=== PATIENT | female | born 1995 ===

== ENCOUNTER 2021-04-11 12:01 | Outpatient (REF) | payer OTHER, SELFPAY | END 2021-04-11 12:02 | disposition home or self-care (01) | LOC: HO.LAB 12:01 | PROVIDERS: PCP Internal Medicine; Visit Provider Internal Medicine | DX: Z20.822 Contact with and (suspected) exposure to COVID-19 (principal) | CPT/HCPCS: C9803; U0003; U0005 ==

== ENCOUNTER 2024-02-19 08:48 | Emergency (ER) | payer OTHER, SELFPAY ==
[2024-02-19 08:53] VITALS: BP 174/102; PULSE 92; RESP 19; TEMP 36.6; O2SAT 99; BMI 27.4
--- NOTE | 2024-02-19 09:09 | ED.GENADULT ---
HPI - General Adult General Chief complaint: General Medical Stated complaint: R breast pain Time Seen by Provider: 02/19/24 09:09 Source: patient and RN notes reviewed Mode of arrival: ambulatory Limitations: no limitations History of Present Illness ED Provider: Christine Madison PA-C HPI narrative: This is a 28-year-old female, with a history of dermatomyositis, who presents emergency department with complaints of right breast lump x6 months. Patient states that she noticed a lump in the breast 6 months ago and has noticed an increase in size since she 1st noticed it. She states that she has had a milky white discharge coming from her right breast which occurred 2 days ago. She states that she had a similar episode several years ago and had an ultrasound of her breast which did not reveal any malignant process. She is unsure of any overlying skin changes as her autoimmune disorder often times gives her changes in her skin. Denies any fevers or chills. No profound night sweats or changes in weight. No other complaints or concerns at this time. MD complaint: Right breast lump Onset (ago): month(s) Location: chest Quality: aching Pain Consistency: constant Relieving factors: none Exacerbating factors: none Associated symptoms: denies other symptoms Treatments prior to arrival: none Related Data Allergies Allergy/AdvReac Type Severity Reaction Status Date / Time No Known Allergies Allergy Verified 02/19/24 08:54 [No Known Allergies*] Review of Systems Review of Systems: Yes all other systems are reviewed and are negative Constitutional: Constitutional: Reports as per [facility] Past Medical History Attestation statement: The following information was validated with the patient. Social History Social History Advance Directives: No Advance Directives Information Provided: Yes Do you have a plan to hurt others: No Plan Physical Exam ED Vital Signs: Vital Signs - 24 hr 02/19/24 08:53 02/19/24 10:39 Temperature 98 F 98.2 F Pulse Rate 92 87 Respiratory Rate 19 16 Blood Pressure 174/102 H 158/70 H Pulse Oximetry 99 99 Oxygen Delivery Method Room Air Room Air BMI result Body Mass Index 27.4 Const General: cooperative, comfortable and no acute distress Orientation/consciousness: patient oriented x3 Limitations: no limitations HENMT Head: Yes normal to inspection, Yes normocephalic and Yes atraumatic Ears: hearing grossly normal bilaterally General nose exam: Normal external nose present Face and sinus: Yes normal facial exam Mouth: Normal oral and palatal mucosa present, oropharynx normal and moist mucous membranes Throat: Yes posterior oropharynx normal Eyes General: appearance normal, both eyes and all related structures Eyelids: Yes eyelids normal Conjunctivae: conjunctivae normal Sclerae: sclerae normal Pupils: Equal, round and reactive pupils present EOM: EOMs intact bilaterally Neck Neck: Yes normal visual inspection, Yes full ROM and Yes no lymphadenopathy Lymphatic: no lymphadenopathy noted Chest Chest palpation & inspection: normal inspection of the chest Chest/axillae images: 1. Right breast, in the upper outer quadrant, there is a 1 cm x 1 cm round non mobile, nontender, hard mass noted, no overlying skin changes or warmth. No peau d'orange. No nipple discharge Resp Effort & Inspection: normal respiratory effort and able to speak in complete sentences Auscultation: clear to auscultation bilaterally, no crackles, no rales, no rhonchi and no wheezes Cardio Rate: regular rate Rhythm: regular rhythm Heart sounds: S1 normal heart sound present and S2 normal heart sound present GI Inspection: Yes normal to inspection Skin General skin exam: no rashes or lesions noted Trauma: no lacerations or abrasions Wounds: no wounds Neuro General: patient oriented x3 and moves all extremities Cranial nerves: Yes Equal, round and reactive pupils present Extrem General: Yes normal to inspection Right upper extremity: normal to inspection Left upper extremity: normal to inspection Right lower extremity: normal to inspection Left lower extremity: normal to inspection Medical Decision Making Medical Decision Making [facility] Narrative: This is a 28-year-old female who presents emergency department with complaints of right breast pain/mass x6 months. Patient also endorses nipple discharge from her right breast which occurred 2 days ago. On examination, patient has a nonmobile palpable 1 cm x 1 cm round mass in her right upper outer quadrant of her right breast. No overlying skin changes or warmth. No nipple discharge. No other masses palpated. Less likely breast abscess as patient has no overlying skin changes or warmth. No fevers or chills. Given circumstances and less likely breast abscess, patient needs to have a diagnostic mammogram. I discussed with patient that this is unable to be ordered in the emergency room, and needs a urgent diagnostic mammogram/ultrasound to be performed. Patient has an OBGYN who she can follow-up with, however given referral to our OBGYN as well as the woman's center for further scheduling/workup. Given strict return precautions. She understands and agrees with plan. Patient stable for discharge. Differential Diagnosis Differential Diagnoses: The differential diagnosis associated with the presentation includes Abscess, malignancy, mass, cyst, lymph node Admission/Observation Consideration of admission/observation: Escalation of care including admission/observation considered Lab Data MDM Lab Attestation statement: I reviewed the patient's lab results. Radiology Impression Discussion of test interpretation with radiology: I have reviewed the radiologist's reading. External Record Review External record reviewed: Inpatient record, Office record, Outpatient record, Prior outpatient labs, Prior outpatient radiology, Primary care record and Outside ED record Discharge Plan Discharge Clinical Impression: Breast mass, right Qualifiers: Breast mass location: upper outer quadrant Qualified Code(s): N63.11 - Unspecified lump in the right breast, upper outer quadrant Patient Disposition: Home, Self-Care Instructions: Breast Mass (ED) Additional Instructions: You were seen in the emergency department due to a lump in your right breast. You need to follow-up with the [facility], call today to make an appointment. They can set you up with diagnostic imaging for this. You can also follow-up with your primary care physician or OBGYN to have this order placed. If any new or worsening symptoms occur including but not limited to fevers, chills, shortness of breath, please return for re-evaluation. [facility]: [phone]. [address] [place] [address] Referrals: [facility] [Provider Group] Joselito Campa MD [Physician] - Interventions: ED Discharge Assessment Last Done: 02/19/24 10:39 Discharge Date/Time: 02/19/24 10:41 Print Language: Yemeni
--- OUTSIDE RECORDS SUMMARY | 2024-02-19 09:18 | XMS_ITS | Continuity of Care Document ---
Author Organization [facility] ter Address [address] [place] [address]- Care Team Providers Care Supervisor Decorating Name Role Phone Abner Nowak MD, Glenda Cox Primary Care Physician [phone] Encounter [facility] Date(s): 11/08/22 - 12/20/[address] [address] Attending Physician: Ankit Shannon MD Admitting Physician: Ankit Shannon MD Referring Physician: Iain DAVIS, Matthew Allergies, Adverse Reactions, Alerts No Known Allergies Medications aspirin 81 mg oral delayed release tablet 162 mg, 2, tablet, By Mouth, Daily at bedtime, # 90 tablet, Refills 4, Tot. Refills 4, Maintenance,11/21/22 10:15:00 EDT, Route to Pharmacy Electronically, [facility]/pharmacy #[id number], Partial fill upon patient request if the prescription is for a schedule II... Start Date: 11/21/22 Status: Ordered Azathioprine = 50 mg, By Mouth, Daily, 0 Refills, Maintenance, 05/17/22 19:07:00 EST, Partial fill upon patient request if the prescription is for a schedule II opioid drug. Start Date: 05/17/22 Status: Ordered folic acid 1 mg oral tablet 1 mg, 1, tablet, By Mouth, Daily, # 30 tablet, Refills 2, Tot. Refills 2, Maintenance, 11/21/22 10:13:00 EDT, Route to Pharmacy Electronically, [facility]/pharmacy #[id number], Partial fill upon patient request if the prescription is for a schedule II opioid drug.... Start Date: 11/21/22 Status: Ordered hydroxychloroquine 200 mg oral tablet 200 mg, 1, tablet, By Mouth, Daily, Take 1.5 tablets daily, Refills 0, Maintenance, 11/12/20 9:38:00 EDT, Partial fill upon patient request if the prescription is for a schedule II opioid drug. Start Date: 11/12/20 Status: Ordered Paxlovid 150 mg-100 mg oral tablet See Instructions, 1 tablet by Mouth 2 times a day for 5 days, # 10 tablet, 0 Refills, Maintenance, 11/23/22 15:58:00 EDT, [facility]/pharmacy #[id number], Partial fill upon patient request if the prescription is for a schedule II opioid drug., 1 tablet by Mouth 2... Start Date: 11/23/22 Status: Ordered PNV By Mouth, Daily, 0 Refills, Maintenance, 09/26/22 10:54:00 EDT, Partial fill upon patient request if the prescription is for a schedule II opioid drug. Start Date: 09/26/22 Status: Ordered Tylenol Extra Strength 500 mg oral tablet 2 tablet = 1,000 mg, By Mouth, Every 6 hours, PRN Pain , Moderate, # 24 tablet, 0 Refills, Maintenance, 05/19/22 9:13:00 EST, Tablet, [facility]acy #[id number], Partial fill upon patient request if the prescription is for a schedule II opioid drug., 155, cm,... Start Date: 05/19/22 Status: Ordered Problem List Condition Confirmation Course Effective Dates Status H ealth Status Informant Abnormal first trimester screen Confirmed Active Dermatomyositis Confirmed Active History of section Confirmed Active Hx of preeclampsia, prior , currently Confirmed Active Obese class I Confirmed Active Request for sterilization Confirmed Active Social History Social History Type Response Smoking Status Never (less than 100 in lifetime) entered on: 09/07/22 Sex Female Patient Care team information Care Team Personnel Name: Abner Nowak MD , Glenda Cox Position: Reference Physician Member Role: PCP Address: Address: [address] [place] [address]- Care Team Related Persons Name: TA EDDIE Address: home [address] [place] [address] Name: EDUARDA LEBLANC
--- OUTSIDE RECORDS SUMMARY | 2024-02-19 09:18 | XMS_ITS | Continuity of Care Document ---
Author Organization [facility] Address [address] [place] [address]- Care Team Providers Care Asset Recovery Specialist Name Role Phone Abner Nowak MD, Glenda Cox Primary Care Physician [id number] Date(s): 10/30/22 - 11/29/[address] [address] Allergies, Adverse Reactions, Alerts No Known Allergies Medications aspirin 81 mg oral delayed release tablet 162 mg, 2, tablet, By Mouth, Daily at bedtime, # 90 tablet, Refills 4, Tot. Refills 4, Maintenance,11/21/22 10:15:00 EDT, Route to Pharmacy Electronically, [facility]/pharmacy #[id number], Partial fill upon patient request if [...] 11/21/22 10:13:00 EDT, Route to Pharmacy Electronically, [facility]/pharmacy #[id number], Partial fill upon patient request if [...] tablet, 0 Refills, Maintenance, 11/23/22 15:58:00 EDT, [facility]/pharmacy #[id number], Partial fill upon patient request if the [...] Refills, Maintenance, 05/19/22 9:13:00 EST, Tablet, [id number], Partial fill upon patient request if the prescription is for a schedule II opioid drug., 155, cm,... Start Date: 05/19/22 Status: Ordered Problem List Condition Confirmation Course Effective Dates Status H ealth Status Informant Dermatomyositis Confirmed Active History of section Confirmed [...] PCP Address: Address: [address] [place] [address]- Care Team Related Persons Name: CHAPPELLEDDIE Chawla Address: home [address] [place] [address] Name: EDUARDA LEBLANC
--- OUTSIDE RECORDS SUMMARY | 2024-02-19 09:18 | XMS_ITS | Continuity of Care Document ---
Author Organization [facility] ter Address [address] [place] [address]- Care Team Providers Care Almond Cutting Machine Tender Name Role Phone Abner Nowak MD, Glenda Cox Primary Care Physician [phone] Encounter [facility] Date(s): 12/07/22 - 01/12/[address] [address] Attending Physician: Felicity Lentz MD Admitting Physician: Felicity Lentz MD Referring Physician: Noreen Ribera CNM Allergies, Adverse Reactions, Alerts No Known Allergies Medications aspirin 81 mg oral delayed release tablet 162 mg, 2, tablet, By Mouth, Daily at bedtime, # 90 tablet, Refills 4, Tot. Refills 4, Maintenance,11/21/22 10:15:00 EDT, Route to Pharmacy Electronically, [facility]/pharmacy #[id number], Partial fill upon patient request if the prescription is for a schedule II... Start Date: 11/21/22 Status: Ordered Azathioprine = 50 mg, By Mouth, Daily, 0 Refills, Maintenance, 05/17/22 19:07:00 EST, Partial fill upon patient request if the prescription is for a schedule II opioid drug. Start Date: 05/17/22 Status: Ordered ferrous sulfate 325 mg oral enteric coated tablet See Instructions, Take one tablet By Mouth every other day., # 45 tablet, Refills 7, Tot. Refills 7, Maintenance, 12/26/22 9:02:00 EDT, Instructions Replace Required Details, Route to Pharmacy Electronically, [facility]/pharmacy #[id number], Partial fill upon charlene... Start Date: 12/26/22 Status: Ordered folic acid 1 mg oral tablet 1 mg, 1, tablet, By Mouth, Daily, # 90 tablet, Refills 2, Tot. Refills 2, Maintenance, 12/22/22 11:26:00 EDT, Route to Pharmacy Electronically, [facility]/pharmacy #[id number], Partial fill upon patient request if the prescription is for a schedule II opioid drug.... Start Date: 12/22/22 Status: Ordered hydroxychloroquine 200 mg oral tablet [...] tablet, 0 Refills, Maintenance, 11/23/22 15:58:00 EDT, [facility]/pharmacy #[id number], Partial fill upon patient request if [...] 0 Refills, Maintenance, 05/19/22 9:13:00 EST, Tablet, [facility]/pharmacy #[id number], Partial fill upon patient request if the prescription is for a schedule II opioid drug., 155, cm,... Start Date: 05/19/22 Status: Ordered Problem List Condition Confirmation Course Effective Dates Status H ealth Status Informant COVID-19 affecting in second trimester Confirmed Active Dermatomyositis Confirmed Active History of section Confirmed Active High risk with low PAPPA (-associated plasma protein A) Confirmed Active Hx of preeclampsia, prior , currently Confirmed Active Obese class I Confirmed Active Request for sterilization Confirmed Active Social History Social History Type Response Smoking Status Never (less than 100 in lifetime) entered on: 09/07/22 Sex Female Patient Care team information Care Team Personnel Name: Abner Nowak MD , Glenda Cox Position: Reference Physician Member Role: PCP Address: Address: [address] [place] [address]- Care Team Related Persons Name: EDDIE CHAPPELL Address: home [address] [place] [address] Name: EDUARDA LEBLANC
--- OUTSIDE RECORDS SUMMARY | 2024-02-19 09:18 | XMS_ITS | Continuity of Care Document ---
Author Organization [facility] Address [address] [place] [address]- Care Team Providers Care Pediatric Occupational Therapist Name Role Phone Abner Nowak MD, Glenda Cox Primary Care Physician Encounter [facility] Date(s): 05/16/22 - 06/15/22 [facility] [address] [place] [address] Allergies, Adverse Reactions, Alerts No Known Allergies Medications Azathioprine Daily, 0 Refills, Maintenance, 05/17/22 19:07:00 EST, Partial fill upon patient request if the prescription is for a schedule II opioid drug. Start Date: 05/17/22 Status: Ordered folic acid 1 mg oral tablet 1 mg, 1, tablet, By Mouth, Daily, Refills 0, Maintenance, 11/12/20 9:38:00 EDT, Partial fill upon patient request if the prescription is for a schedule II opioid drug. Start Date: 11/12/20 Status: Ordered hydroxychloroquine 200 mg oral tablet 200 mg, 1, tablet, By Mouth, Daily, Refills 0, Maintenance, 11/12/20 9:38:00 EDT, Partial fill uponpatient request if the prescription is for a schedule II opioid drug. Start Date: 11/12/20 Status: Ordered ibuprofen 800 mg oral tablet 800 mg, 1, tablet, By Mouth, 3 times a day, PRN, # 30 tablet, Refills 0, Tot. Refills 0, Maintenance, for pain, 05/17/22 20:48:00 EST, Route to Pharmacy Electronically, [facility], Partial fill upon patient request if the prescription is... Start Date: 05/17/22 Status: Ordered Methotrexate Tablet By Mouth, Refills 0, Maintenance, 11/12/20 9:43:00 EDT, Partial fill upon patient request if the prescription is for a schedule II opioid drug. Start Date: 11/12/20 Status: Ordered miSOPROStol 200 mcg oral tablet See Instructions, Place 2 tabs between cheek and gums on EACH side, let dissolve for 30 min then swallow the rest with water, # 4 tablet, 1 Refills, Maintenance, 05/17/22 20:48:00 EST, [facility], Partial fill upon patient request if the... Start Date: 05/17/22 Status: Ordered miSOPROStol 200 mcg oral tablet See Instructions, place 2 tabs between each cheek for 30 min then swallow the rest., # 4 tablet, 1 Refills, Maintenance, 05/18/22 19:15:00 EST, [facility]/pharmacy #[id number], Partial fill upon patient request if the prescription is for a schedule II opioid drug.... Start Date: 05/18/22 Status: Ordered ondansetron 4 mg oral tablet 1 tablet = 4 mg, By Mouth, Every 8 hours, PRN Nausea & Vomiting, # 10 tablet, 0 Refills, Maintenance, 05/17/22 20:48:00 EST, Tablet, [facility], Partial fill upon patient request ifthe prescription is for a schedule II opioid drug., 155... Start Date: 05/17/22 Status: Ordered PredniSONE By Mouth, Daily, 0 Refills, Maintenance, 05/17/22 19:07:00 EST, Partial fill upon patient request if the prescription is for a schedule II opioid drug. Start Date: 05/17/22 Status: Ordered Tylenol Extra Strength 500 mg oral tablet 2 tablet = 1,000 mg, By Mouth, Every 6 hours, PRN Pain , Moderate, # 24 tablet, 0 Refills, Maintenance, 05/19/22 9:13:00 EST, Tablet, [facility]/pharmacy #[id number], Partial fill upon patient request if the prescription is for a schedule II opioid drug., 155, cm,... Start Date: 05/19/22 Status: Ordered Problem List Condition Confirmation Course Effective Dates Status Health St at[facility] Informant Dermatomyositis Confirmed Active Patient Care team information Care Team Personnel Name: Abner Nowak MD , Glenda Cox Position: Reference Physician Member Role: PCP Address: Address: [address] [place] [address] Care Team Related Persons Name: TA EDDIE Address: home [address] [place] [address] Name: EDUARDA LEBLANC
--- OUTSIDE RECORDS SUMMARY | 2024-02-19 09:18 | XMS_ITS | Continuity of Care Document ---
Author Organization [facility] ter Address [address] [place] [address]- Care Team Providers Care Director Search Marketing Strategies Name Role Phone Abner Nowak MD, Glenda Cox Primary Care Physician Encounter [facility] Date(s): 10/16/21 - 11/25/[address] [id number] Attending Physician: Maria De Jesus Agee MD Admitting Physician: Maria De Jesus Agee MD Referring Physician: Maria De Jesus Agee MD Allergies, Adverse Reactions, Alerts No Known Allergies Medications folic acid 1 mg oral tablet 1 [...] opioid drug. Start Date: 11/12/20 Status: Ordered Methotrexate Tablet By Mouth, Refills 0, Maintenance, 11/12/20 9:43:00 EDT, Partial fill upon patient request if the prescription is for a schedule II opioid drug. Start Date: 11/12/20 Status: Ordered Problem List Condition Effective Dates Status Health Status Inform ant Dermatomyositis(Confirmed) Active
--- OUTSIDE RECORDS SUMMARY | 2024-02-19 09:18 | XMS_ITS | Continuity of Care Document ---
Author Organization [facility] Address [address] [place] [id number]- Care Team Providers Care Health Service Coordinator Name Role Phone Abner Nowak MD, Glenda Cox Primary Care Physician [facility]counter [facility] [id number] Date(s): 03/19/23 - 04/18/[address] [address] Allergies, Adverse Reactions, Alerts No Known Allergies Immunizations Given and Recorded Vaccine Date Status Refusal Reason tetanus/diphtheria/pertussis, acel(Tdap) 01/23/23 Given Medications acetaminophen 325 mg oral capsule 2 capsule = 650 mg, By Mouth, Every 4 hours, PRN as needed for pain, # 50 tablet, 0 Refills, Maintenance, 03/18/23 18:42:00 EDT, Capsule, [facility]/pharmacy #[id number], Partial fill upon patient request if the prescription is for a schedule II opioid drug., 155,... Start Date: 03/18/23 Status: Ordered aspirin 81 mg oral delayed release tablet 162 mg, 2, tablet, By Mouth, Daily at bedtime, # 90 tablet, Refills 4, Tot. Refills 4, Maintenance,11/21/22 10:15:00 EDT, Route to Pharmacy Electronically, [facility]/pharmacy #[id number], Partial fill upon patient request if the prescription is for a schedule II... Start Date: 11/21/22 Status: Ordered Azathioprine = 50 mg, By Mouth, Daily, 0 Refills, Maintenance, 05/17/22 19:07:00 EST, Partial fill upon patient request if the prescription is for a schedule II opioid drug. Start Date: 05/17/22 Status: Ordered Colace sodium 100 mg oral capsule 100 mg, 1, capsule, By Mouth, 2 times a day, PRN, # 20 capsule, Refills 0, Tot. Refills 0, Maintenance, for constipation, 02/06/23 11:26:00 EDT, Route to Pharmacy Electronically, [facility]/pharmacy #[id number], Partial fill upon patient request if the prescriptio... Start Date: 02/06/23 Status: Ordered ferrous sulfate 325 mg oral enteric coated tablet See Instructions, Take one tablet By Mouth every other day., # 45 tablet, Refills 7, Tot. Refills 7, Maintenance, 12/26/22 9:02:00 EDT, Instructions Replace Required Details, Route to Pharmacy Electronically, [facility]/pharmacy #[id number], Partial fill upon charlene... Start Date: 12/26/22 Status: Ordered folic acid 1 mg oral tablet 1 mg, 1, tablet, By Mouth, Daily, # 90 tablet, Refills 2, Tot. Refills 2, Maintenance, 12/22/22 11:26:00 EDT, Route to Pharmacy Electronically, [facility]/pharmacy #[id number], Partial fill upon patient request [...] drug. Start Date: 11/12/20 Status: Ordered ibuprofen 600 mg oral tablet 600 mg, 1, tablet, By Mouth, Every 6 hours, # 50 tablet, Refills 0, Tot. Refills 0, Maintenance, 03/18/23 18:42:00 EDT, Route to Pharmacy Electronically, [facility]/pharmacy #[id number], Partial fill upon patientrequest if the prescription is for a schedule II op... Start Date: 03/18/23 Status: Ordered MiraLax oral powder for reconstitution = 17 Gm, By Mouth, Daily, dissolve in water before taking, # 255 Gm, 0 Refills, Maintenance, 02/06/23 11:26:00 EDT, REC Powder, [facility]/pharmacy #[id number], Partial fill upon patient request if the prescription is for a schedule II opioid drug., 17 Gm By Mouth... Start Date: 02/06/23 Status: Ordered NIFEdipine (Eqv-Adalat CC) 30 mg oral tablet, extended release 1 tablet = 30 mg, By Mouth, Daily, # 90 tablet, 0 Refills, Maintenance, 03/20/23 15:44:00 EDT, ER Tablet, [facility]/pharmacy #[id number], Partial fill upon patient request if the prescription is for a schedule II opioid drug., 155, cm, 03/18/23 17:03:00 EDT, Heig... Start Date: 03/20/23 Status: Ordered oxyCODONE 5 mg oral tablet 10 mg, 2, tablet, By Mouth, Every 6 hours, PRN, # 12 tablet, Refills 0, Tot. Refills 0, Maintenance, for pain, 03/18/23 18:42:00 EDT, Route to Pharmacy Electronically, [facility]/pharmacy #[id number], Partial fill upon patient request if the prescription is for a... Start Date: 03/18/23 Status: Ordered PNV By Mouth, Daily, 0 Refills, Maintenance, 09/26/22 10:54:00 EDT, Partial fill upon patient request if the prescription is for a schedule II opioid drug. Start Date: 09/26/22 Status: Ordered Senna 8.6 mg oral tablet 1 or 2 tablets, By Mouth, Daily at bedtime, PRN, # 60 tablet, Refills 0, Tot. Refills 0, Maintenance, Constipation, 03/06/23 11:44:00 EDT, Route to Pharmacy Electronically, [facility]/pharmacy #[id number] Tablet,Partial fill upon patient request if the prescripti... Start Date: 03/06/23 Status: Ordered simethicone 125 mg oral tablet, chewable 1 tablet = 125 mg, Chew, 4 times a day, # 48 tablet, 0 Refills, Maintenance, 03/18/23 18:42:00 EDT,Chew Tablet, [facility]/pharmacy #[id number], Partial fill upon patient request if the prescription is for a schedule II opioid drug., 155, cm, 03/18/23 17:03:00 ED... Start Date: 03/18/23 Status: Ordered Tylenol Extra Strength 500 mg oral tablet 2 tablet = 1,000 mg, By Mouth, Every 6 hours, PRN Pain , Moderate, # 24 tablet, 0 Refills, Maintenance, 05/19/22 9:13:00 EST, Tablet, [facility]/pharmacy #[id number], Partial fill upon patient request if the prescription is for a schedule II opioid drug., 155, cm,... Start Date: 05/19/22 Status: Ordered Vitamin B12 250 mcg oral tablet 1 tablet = 250 mcg, By Mouth, Daily, # 30 tablet, 0 Refills, Maintenance, 02/08/23 16:07:00 EDT, Tablet, [facility]/pharmacy #[id number], Partial fill upon patient request if the prescription is for a schedule IIopioid drug., 155, cm, 02/06/23 11:02:00 EDT, Heigh... Start Date: 02/08/23 Status: Ordered Problem List Condition Confirmation Course Effective Dates Status H ealth Status Informant COVID-19 affecting in second trimester Confirmed Active Dermatomyositis Confirmed Active History of section Confirmed Active High risk with low PAPPA (-associated plasma protein A) Confirmed Active Hx of preeclampsia, prior , currently Confirmed Active Obese class II Confirmed Active Request for sterilization Confirmed Active Social History Social History Type Response Smoking Status Never (less than 100 in lifetime) entered on: 09/07/22 Sex Patient Care team information Care Team Personnel Name: Abner Nowak MD , Glenda Cox Position: Reference Physician Member Role: PCP Address: Address: [address] [place] [address]- Care Team Related Persons Name: EDDIE CHAPPELL Address: home [address] [place], [place] Name: EDUARDA LEBLANC Name: DUSTY COOPER Address: [address] Address: [address] [place] [address]
--- OUTSIDE RECORDS SUMMARY | 2024-02-19 09:18 | XMS_ITS | Continuity of Care Document ---
Author Organization [facility] ter Address [address] [place] [address]- Care Team Providers Care Entry Level Manager Name Role Phone Abner Nowak MD, Glenda Cox Primary Care Physician Encounter [facility] [place] Date(s): 02/25/23 - 02/26/[address] [address]- Discharge Disposition: A-D/C Home Attending Physician: Fátima Hoffman MD Admitting Physician: Fátima Hoffman MD Referring Physician: Fátima Hoffman MD Allergies, Adverse Reactions, Alerts No Known Allergies Immunizations Given and Recorded Vaccine Date Status Refusal Reason tetanus/diphtheria/pertussis, acel(Tdap) 01/23/23 Given Medications aspirin 81 mg oral delayed release [...] 02/06/23 11:26:00 EDT, Route to Pharmacy Electronically, [facility]/pharmacy #[id number], Partial fill upon patient request if the prescriptio... Start Date: 02/06/23 Status: Ordered ferrous sulfate 325 mg oral enteric coated tablet See Instructions, Take one tablet By Mouth every other day., # 45 tablet, Refills 7, Tot. Refills 7, Maintenance, 12/26/22 9:02:00 EDT, Instructions Replace Required Details, Route to Pharmacy Electronically, [facility]/pharmacy #[id number], Partial fill upon charlene... Start Date: 12/26/22 Status: Ordered folic acid 1 mg oral tablet 1 mg, 1, tablet, By Mouth, Daily, # 90 tablet, Refills 2, Tot. Refills 2, Maintenance, 12/22/22 11:26:00 EDT, [facility] opioid drug. Start Date: 11/12/20 Status: Ordered metroNIDAZOLE 500 mg oral tablet 1 tablet = 500 mg, By Mouth, Every 12 hours, for 5 days, # 10 tablet, 0 Refills, Acute 03/02/23 23:15:00 EDT, 02/25/23 23:15:00 EDT, Tablet, [facility]/pharmacy #[id number], Partial fill upon patient request if the prescription is for a schedule II opioid drug., 1... Start Date: 02/25/23 Stop Date: 03/02/23 Status: Ordered MiraLax oral powder for reconstitution = 17 Gm, By Mouth, Daily, dissolve in water before taking, # 255 Gm, 0 Refills, Maintenance, 02/06/23 11:26:00 EDT, REC Powder, [id number], Partial fill upon patient request if the prescription is for a schedule II opioid drug., 17 Gm By Mouth... Start Date: 02/06/23 Status: Ordered PNV By Mouth, Daily, 0 [...] Maintenance, 05/19/22 9:13:00 EST, Tablet, [facility]/pharmacy #[id number], Partial fill upon patient request if the prescription is for a schedule II opioid drug., 155, cm,... Start Date: 05/19/22 Status: Ordered Vitamin B12 250 mcg oral tablet 1 tablet = 250 mcg, By Mouth, Daily, # 30 tablet, 0 Refills, Maintenance, 02/08/23 16:07:00 EDT, Tablet, [facility]/pharmacy #[id number], Partial fill upon patient request if the [...] Confirmed Active Request for sterilization Confirmed Active Vital Signs Most recent to oldest [Reference Range]: 1 2 3 Oxygen Saturation [94-100 %] 100 % (02/26/23 12:46 AM) 100 % (02/26/23 12:31 AM) 100 % (02/26/23 12:16 AM) Blood Pressure [90-138/55-84 mm Hg] 135/78mm Hg (02/26/23 12:46 AM) 134/79mm Hg (02/26/23 12:31 AM) 136/84mm Hg (02/26/23 12:16 AM) Temperature [96.8-100.4 DegF] 98.8 DegF (02/25/23 9:17 PM) Dry Weight 83.7 kg (02/25/23 10:11 PM) Dry Weight Obtained Via Standing scale (02/25/23 10:11 PM) Social History Social History Type Response Smoking Status Never (less than 100 in lifetime) entered on: 09/07/22 Sex Female Note * Brielle Connelly RN: PERFORM Event Display: Discharge/Transfer Note Hospital Authored Date: [id number] Nursing Discharge Note Entered On: 02/26/2023 0:54 EDT Performed On: 02/26/2023 0:53 EDT by Brielle Connelly RN Nursing Discharge Note 2 Discharge Time : 02/26/2023 0:52 EDT Discharge Level of Care at Discharge : Home/Usp/Foster Care Patient Left Unit Via : Ambulatory Patient Accompanied Off Unit with : Significant other DC Instructions Provided & Signed by Pt : Yes Patient Understands D/C Instructions : Yes Patient Instructions Discharge Signed : Yes Did Pt have Specialty Bed or Wound Vac : No Brielle Connelly RN - 02/26/2023 0:53 EDT * Event Display: Discharge/Transfer Note Hospital Authored Date: * Brielle Connelly RN: PERFORM Event Display: Patient Education/Instruction Authored Date: [id number] Inpatient Adult Discharge Instructions [address] [id number] Name: EMILY CHAPPELL : 1995 Visit: 02/25/2023 20:47:00 Current Date: 02/26/2023 00:50 Account: [id number] Inpatient Adult Discharge Instructions We would like to thank you for allowing us to assist you with your healthcare needs. The following includes patient education materials and information regarding your injury/illness. Our entire staffstrives to provide an excellent experience for our patients and their families. PLEASE ENSURE YOU FOLLOW-UP PER THE INSTRUCTIONS BELOW! ?? YOUR OPINION IS IMPORTANT TO US! Please complete the survey you may receive by mail or email. Your feedback will be used to make improvements to the healthcare experiences of our patients and their families. Surveys are administered by [employer] ?? If further treatment with your primary care physician or another doctor is recommended, it is important for you to keep the appointment. Call your primary care physician or return to the Emergency Department immediately if your condition worsens, fails to improve, or new symptoms develop. If you need to find a doctor, you can call [facility] for a referral at [phone] or toll free at [phone]) or log in to [email or web address].. ?? [facility], in keeping with [facility] guidance, no longer requires face masks for staff, patientsor visitors in most situations. Similiar to time spent indoors at other locations, there is the chance that you were exposed to repiratory viruses during your time with us (such as flu or COVID-19). If you develop symptoms concerning for a viral respiratory infection, please seek testing (and treatment if indicated) from your medical provider or home test kit. ?? You can view and manage your care through the patient portal or by using a health care serg of your choosing. [employer] is a website that allows you to securely view your medical information including your hospital discharge summary, office visit summaries, medications and follow-up visits. You can also request appointments, renew medications, and request access to your medical information using a health care serg of your choosing, or just ask a question. You can enroll at [email or web address] or register during your next office visit. You have been discharged from [facility], Patient Care Unit: WETU1. If you have any questions regarding these instructions after you leave, please call us and we will be happy to assist you. [facility] Your Care Team Attending Physician Yasmin DAVIS, Fátima Munson Reason for Admission PREG MINH 10 23HEAVY BLEEDING Your Diagnosis Vaginal bleeding Bacterial vaginosis Elevated blood pressure reading Tests Performed Below is a partial list of the tests performed during your hospitalization. You may have had other tests and procedures not included in this list. Please discuss all test results with your provider. Primary Care Provider Abner Nowak MD , Glenda Cox Advance Directive Health Care Proxy on File No Discharge Vitals Temperature: 98.8 DegF Systolic Blood Pressure: 135 mm Hg Diastolic Blood Pressure: 78 mm Hg Oxygen Saturation: 100 % Studies Pending All tests and labs ordered during this hospital stay have been completed unless listed below. Please discuss all pending results with your provider listed above in these instructions. ?? No incomplete studies found What to do next Instructions From Your Doctor Discharge Orders Scheduled Follow-Up Appointments Sunday 11:20 AM EDT ?? Where: [facility] [address] [place] [address]- Status: Pending Sunday 11:20 AM EDT ?? Where: [facility] [address] [place] [address]- Status: Pending Sunday 11:20 AM EDT ?? Where: [facility] [address] [place] [address]- Status: Pending Sunday 11:20 AM EDT ?? Where: [facility] [address] [place] [address]- Status: Pending Sunday 11:30 AM EDT ?? Where: [facility] Status: Pending Sunday 11:20 AM EDT ?? Where: [facility] [address] [place] [address]- Status: Pending You Need to Schedule the Following Appointments Follow Up with??[facility] [phone] Discharge Medications EMILY VEGA :1995 Visit Date:02/25/2023 Medications: Please continue your medications until treatment is completed or stopped by your provider. Medications not listed below should be discontinued. Discuss any questions related to medications with your provider. What How Much When Instructions Next Dose New Metronidazole (metroNIDAZOLE 500 mg oral tablet) 1 tab(s) Oral Every 12 hours Duration: 5 Days Pickup at [facility]/pharmacy #[id number] Unchanged Acetaminophen (Tylenol Extra Strength 500 mg oral tablet) 2 tab(s) Oral Every 6 hours as needed for Pain , Moderate Unchanged Aspirin (aspirin 81 mg oral delayed release tablet) 2 tab(s) Oral Daily at Bedtime Unchanged Azathioprine 50 Milligram Oral Daily Unchanged Cyanocobalamin (Vitamin B12 250 mcg oral tablet) 1 tab(s) Oral Daily Unchanged Docusate (Colace sodium 100 mg oral capsule) 1 capsule Oral Twice a day as needed for for constipation Unchanged Ferrous Sulfate (ferrous sulfate 325 mg oral enteric coated tablet) See instructions Take one tablet By Mouth every other day. ?? Unchanged Folic Acid (folic acid 1 mg oral tablet) 1 tab(s) Oral Daily Unchanged Hydroxychloroquine (hydroxychloroquine 200 mg oral tablet) 1 tab(s) Oral Daily Take 1.5 tablets daily ?? Unchanged Multivitamin, (PNV ) Oral Daily Unchanged Polyethylene Glycol 3350 (MiraLax oral powder for reconstitution) 17 gram Oral Daily dissolve in water before taking ?? Pharmacy Information [facility]/pharmacy #[id number]: [address], [place] [id number] [phone] Test Results Below is a partial list of the most recent Laboratory test results done prior to this discharge. You may have had other tests and procedures not included in this list. Please discuss all test resultswith your provider. Allergies (NKA means No Known Allergies) NKA Problems Active Problems??(8) COVID-19 affecting in second trimester?? Dermatomyositis?? High risk with low PAPPA (-associated plasma protein A)?? History of section?? Hx of preeclampsia, prior , currently ?? Obese class I? Request for sterilization?? Education Materials Below is the list of Educational Leaflet Providered with your Discharge Instructions. Kick Counts?? Adapting to : Third Trimester?? Valuables and Belongings I fully understand and agree that [facility] accepts no responsibility for all my personal property including clothing, toilet articles, radios, jewelry, dentures, hearing aids, rings, money, or any other property that is in my possession or is brought to me after admission. I understand certain valuables may be placed in a hospital safe for a short period of time. I understand that the hospital is not liable for loss or damage due to accident, fire, or other natural occurrence while said property is in the safe. I accept full responsibility for any personal property that I keep with me, and will not hold the hospital responsible in case of loss or disappearance. I acknowledge that i have been encouraged to send valuables and belongings home. ? Common Emergency Awareness Tips IS IT A STROKE? Act FAST and Check for these signs: FACE Does the face look uneven? ARM Does one arm drift down? SPEECH Does their speech sound strange? TIME Call at any sign of stroke ?? Heart Attack Signs Chest discomfort: Most heart attacks involve discomfort in the center of the chest and lasts more than a few minutes, or goes away and comes back. It can feel like uncomfortable pressure, squeezing, fullness or pain. Discomfort in upper body: Symptoms can include pain or discomfort in one or both arms, back, neck, jaw or stomach. Shortness of breath: With or without discomfort. Other signs: Breaking out in a cold sweat, nausea, or lightheaded. Remember, MINUTES DO MATTER. If you experience any of these heart attack warning signs, call to get immediate medical attention! ?? Smoking can increase your chances of developing chronic health problems and can cause harmful effects to other family members in your house. If you smoke, you are strongly encouraged to quit. Please call [facility] at [phone] or [phone] ([phone]) or log in to [email or web address] for referrals to smoking cessation programs. ?? 430 Suicide & Crisis Lifeline is available 08/01 if you or someone you know needs to find a reason to keep living. By calling 401 you'll be connected to a skilled, trained counselor at a crisis center in your area. INPATIENT DISCHARGE INSTRUCTIONS SIGNATURE PAGE EMILY VEGA Location:[facility] Registration Date and Time:02/25/2023 20:47 EDT Primary Care Physician: Abner Nowak MD , Kasey, Attending Physician: Yasmin DAVIS, Fátima Munson, I EMILY VEGA, have received the above patient education materials/instructions and have verbalized understanding. If ambulance or transport services are being used I further acknowledge being given a choice of service. ?? If you need to contact me, please call me at this number: . Patient/Manager Pathology Name: Patient/Manager Pathology Signature: Relationship to Patient: Witness Name/Signature: Date: * Brielle Connlely RN: PERFORM, SIGN, VERIFY Event Display: Patient Education Handout Authored Date: [id number] * Brielle Connelly RN: PERFORM Event Display: Patient Education Leaflets Authored Date: [id number] Kick Counts ?? 50858 Kick Counts It???s normal to worry about your baby???s health. Generally, you will feel your baby start to movein your 2nd trimester at around 16 to 24 weeks. Getting to know the pattern of your baby's movements is one way to know what's normal for you and baby. This is called a kick count. Talk with your healthcare provider about kick counts and your specific situation. Always follow your provider's instructions. How to count kicks Here is just one way to do kick counts. Always follow your healthcare provider's instructions. Starting at 28 weeks, count your baby's movements daily. Time how long it takes you to feel 10 kicks, flutters, swishes, or rolls. Ideally, you want to feel at least 10 movements in 2 hours. You will likely feel 10 movements in less time than that. Here are tips for counting kicks: ??? Choose a time when the baby is active, such as after a meal.? Sit comfortably or lie on your side.? The first time the baby moves,??write down??the time.? Count each movement until the baby has moved?? 10??times. This can take from 20 minutes to 2??hours.? If you haven't felt 10 kicks by the end of the second hour, wait a few hours. Then try again. ??? Try to do it at the same time each day. ?? When to call your healthcare provider Follow your provider's instructions about when to call about your baby's movements. Don't hesitate to call if you have concerns. Call your healthcare provider?? right away??if: ??? You do a couple sets of kick counts during the day and your baby moves fewer than 10??times in??2??hours. ??? Your baby moves much less often than on the??days before. ??? You haven't felt your baby move all day. ?? Last Reviewed Date: 2022 ?? 9038-0240 [employer]. All rights reserved. This information is not intended as a substitute for professional medical care. Always follow your healthcare professional's instructions. ?? * Maricel COTE, Brielle: PERFORM Event Display: Patient Education Leaflets Authored Date: [id number] Adapting to : Third Trimester ?? [address] Adapting to : Third Trimester Although common during , some discomforts may seem worse in the final weeks. Simple lifestyle changes can help. Take care of yourself. And ask your partner to help out with small tasks. Limiting leg problems Ways to combat leg issues: ??? Wear support hose all day. ??? Don't wear snug shoes or clothes thatbind, such as tight pants and socks with elastic tops. ??? Sit with your feet and legs raised often. ?? Caring for your breasts Tips to follow include: ??? Wash with plain water. Don't use harsh soaps or rubbing alcohol. They may cause dryness. ??? Wear a nursing bra for extra support. It can also hide any leaks from your nipples. ?? Controlling hemorrhoids Ways to prevent hemorrhoids include: ??? Eat foods that are high in fiber. Also exercise and drink enough fluids. This will reduce constipation and hemorrhoids. ??? Sleep and nap on your side. This limits pressure on the veins??of your rectum. ??? Try not to stand or sit for long periods. ?? Controlling back pain As your body changes during , your back must work in new ways. Back pain has many causes. Physical changes in your body can strain your back and its supporting muscles. Also hormones increase during . This can affect how??your muscles and joints work together. All of these changescan lead to pain. Pain may be felt in the upper or lower back. Pain is also common in the pelvis. Some womenhave sciatica. This is pain caused by pressure on the sciatic nerve running down the back of the leg. Ice or heat may help. Your provider may advise massage therapy or a chiropractor. Sleep on your left side with a pillow between your knees. Use a brace or support device. Ask your provider for speci fic tips and exercises to help control your back pain. ?? Tips to help you rest Good rest and sleep will help you feel better. Here are some ideas: ??? Ask your partner to massageyour shoulders, neck, or back. ??? Limit the errands you do each day. ??? Lie down in the afternoonor after work for a few minutes. ??? Take a warm bath before you go to sleep. ??? Drink warm milk or teas without caffeine. ??? Don't drink coffee, black tea, and cola. ?? Stopping heartburn ??? Don't eat spicy, greasy, fried,??or acidic foods. ??? Eat small amounts more often. Eat slowly. ??? Wait 2 hours after eating before lying down. ??? Sleep with your upper body raised 6 inches. ?? Managing mood swings Ways to manage mood swings include: ??? Know that mood changes are normal. ??? Exercise often, but get plenty of rest. ??? Address any concerns and limit stress. Talking to your partner, other women,or your healthcare provider may help. ?? Dealing with urinary frequency Tips to deal with having to urinate often include: ??? Drink plenty of water all day. But if you drink a lot in the evening, you may have to get up more in the night. ??? Limit coffee, black tea, andcola. ?? How daily issues affect your health Many things in your daily life impact your health. This can include transportation, money problems,housing, access to food, and child care coordinator. If you can???t get to medical appointments, you may not receive the care you need. When money is tight, it may be difficult to pay for medicines. And living far from a grocery store can make it hard to buy healthy food. If you have concerns in any of these or other areas, talk with your healthcare team. They may know of local resources to assist you. Or they may have a staff person who can help. ?? Last Reviewed Date: 2020 ?? 2726-1680 [employer]. All rights reserved. This information is not intended as a substitute for professional medical care. Always follow your healthcare professional's instructions. ?? Patient Care team information Care Team Personnel Name: Abner Nowak MD , Glenda Cox Position: Reference Physician Member Role: PCP Address: Address: [address] [place] [address]- Care Team Related Persons Name: EDDIE CHAPPELL Address: home [address] [place] [id number] Name: EDUARDA LEBLANC
--- OUTSIDE RECORDS SUMMARY | 2024-02-19 09:18 | XMS_ITS | Continuity of Care Document ---
Author Organization [facility] Address [address] [place] [address]- Care Team Providers Care Quencher Operator Name Role Phone Abner Nowak MD, Glenda Cox Primary Care Physician Encounter [facility] [place] Date(s): 05/25/22 - 06/24/[address] [address]- Allergies, Adverse Reactions, Alerts No Known Allergies [...] 05/17/22 20:48:00 EST, Route to Pharmacy Electronically, [facility], Partial fill upon patient [...] tablet, 1 Refills, Maintenance, 05/17/22 20:48:00 EST, [facility], Partial fill upon patient request if the... Start Date: 05/17/22 Status: Ordered miSOPROStol 200 mcg oral tablet See Instructions, place 2 tabs between each cheek for 30 min then swallow the rest., # 4 tablet, 1 Refills, Maintenance, 05/18/22 19:15:00 EST, [facility]/pharmacy #[id number], Partial fill upon patient request if the prescription is for a schedule II opioid drug.... Start Date: 05/18/22 Status: Ordered ondansetron 4 mg oral tablet 1 tablet = 4 mg, By Mouth, Every 8 hours, PRN Nausea & Vomiting, # 10 tablet, 0 Refills, Maintenance, 05/17/22 20:48:00 EST, Tablet, [facility], Partial fill upon patient [...] 0 Refills, Maintenance, 05/19/22 9:13:00 EST, Tablet, [facility]/pharmacy #0693, Partial fill upon patient request if the prescription is for a schedule II opioid drug., 155, cm,... Start Date: 05/19/22 Status: Ordered Problem List Condition Confirmation Course Effective Dates Status [facility] Informant Dermatomyositis Confirmed Active Patient Care team information Care Team Personnel Name: Abner Nowak MD , Glenda Cox Position: Reference Physician Member Role: PCP Address: Address: [address] [place] [address]- Care Team Related Persons Name: EDDIE CHAPPELL Address: home [address] [place] [address] Name: EDUARDA LEBLANC
--- OUTSIDE RECORDS SUMMARY | 2024-02-19 09:19 | XMS_ITS | Continuity of Care Document ---
Author Organization [facility] Address [address] [place] [address]- Care Team Providers Care Weigher Operator Name Role Phone Abner Nowak MD, Gledna Cox Primary Care Physician [place] [facility] [place] Date(s): 05/08/23 - 06/07/[address] [address]- Attending Physician: Keyana Simons Admitting Physician: AdmKeyana gonzalez Referring Physician: AdmtrKeyana Allergies, Adverse Reactions, Alerts No Known Allergies Immunizations Given and Recorded Vaccine Date Status Refusal Reason tetanus/diphtheria/pertussis, acel(Tdap) 01/23/23 Given Medications acetaminophen 325 mg oral capsule 2 capsule = 650 mg, By Mouth, Every 4 hours, PRN as needed for pain, # 50 tablet, 0 Refills, Maintenance, 03/18/23 18:42:00 EDT, Capsule, [facility]/pharmacy #[id number], Partial fill upon patient request if the prescription is for a schedule II opioid drug., 155,... Start Date: 03/18/23 Status: Ordered aspirin 81 mg oral delayed release tablet 162 mg, 2, tablet, By Mouth, Daily at bedtime, # 90 tablet, Refills 4, Tot. Refills 4, Maintenance,11/21/22 10:15:00 EDT, Route to Pharmacy Electronically, [id number], Partial fill upon patient request [...] EDT, Route to Pharmacy Electronically, [facility]/pharmacy #[id number], Partial fill upon patient request if the prescriptio... Start Date: 02/06/23 Status: Ordered ferrous sulfate 325 mg oral enteric coated tablet See Instructions, Take one tablet By Mouth every other day., # 45 tablet, Refills 7, Tot. Refills 7, Maintenance, 12/26/22 9:02:00 EDT, Instructions Replace Required Details, Route to Pharmacy Electronically, [facility]/pharmacy #[id number], Partial fill upon charlene... Start Date: 12/26/22 Status: Ordered folic acid 1 mg oral tablet 1 mg, 1, tablet, By Mouth, Daily, # 90 tablet, Refills 2, Tot. Refills 2, Maintenance, 12/22/22 11:26:00 EDT, Route to Pharmacy Electronically, [facility]/pharmacy #[id number], Partial fill upon patient request [...] 03/18/23 18:42:00 EDT, Route to Pharmacy Electronically, [facility]/pharmacy #[id number], Partial fill upon patientrequest if [...] Refills, Maintenance, 03/20/23 15:44:00 EDT, ER Tablet, [facility]/pharmacy #[id number], Partial fill upon patient request if the prescription is for a schedule II opioid drug., 155, cm, 03/18/23 17:03:00 EDT, Heig... Start Date: 03/20/23 Status: Ordered oxyCODONE 5 mg oral tablet 10 mg, 2, tablet, By Mouth, Every 6 hours, PRN, # 12 tablet, Refills 0, Tot. Refills 0, Maintenance, for pain, 03/18/23 18:42:00 EDT, Route to Pharmacy Electronically, [facility]/pharmacy #[id number], Partial fill upon patient request [...] 03/06/23 11:44:00 EDT, Route to Pharmacy Electronically, [facility]/pharmacy #[id number] Tablet,Partial fill upon patient request if the prescripti... Start Date: 03/06/23 Status: Ordered simethicone 125 mg oral tablet, chewable 1 tablet = 125 mg, Chew, 4 times a day, # 48 tablet, 0 Refills, Maintenance, 03/18/23 18:42:00 EDT,Chew Tablet, [id number], Partial fill upon patient request if the prescription is for a schedule II opioid drug., 155, cm, 03/18/23 17:03:00 ED... Start Date: 10/1/23 Status: Ordered Tylenol Extra Strength 500 mg oral tablet 2 tablet = 1,000 mg, By Mouth, Every 6 hours, PRN Pain , Moderate, # 24 tablet, 0 Refills, Maintenance, 05/19/22 9:13:00 EST, Tablet, [id number], Partial fill upon patient request if the prescription is for a schedule II opioid drug., 155, cm,... Start Date: 05/19/22 Status: Ordered Vitamin B12 250 mcg oral tablet 1 tablet = 250 mcg, By Mouth, Daily, # 30 tablet, 0 Refills, Maintenance, 02/08/23 16:07:00 EDT, Tablet, [id number], Partial fill upon patient request [...] Physician Member Role: PCP Address: Address: [address] [place] [address]- Care Team Related Persons Name: EDDIE CHAPPELL Address: home [address] [place], [place] Name: EDUARDA LEBLANC Name: DUSTY COOPER Address: [address] Address: home [address] [place] [address] [place]
--- OUTSIDE RECORDS SUMMARY | 2024-02-19 09:19 | XMS_ITS | Continuity of Care Document ---
Author Organization [facility] Address [address] [address]- Care Team Providers Care Physician Vice President Name Role Phone Abner Nowak MD, Glenda Cox [id number] - 04/26/[address] [address] Attending Physician: Not on Staff, Attending MD Allergies, Adverse Reactions, Alerts No Known Allergies Immunizations Given and Recorded Vaccine Date Status Refusal Reason tetanus/diphtheria/pertussis, acel(Tdap) 01/23/23 Given Medications acetaminophen 325 mg oral capsule 2 capsule = 650 mg, By Mouth, Every 4 hours, PRN as needed for pain, # 50 tablet, 0 Refills, Maintenance, 03/18/23 18:42:00 EDT, Capsule, [facility]/pharmacy #[id number], Partial fill upon patient request [...] 02/06/23 11:26:00 EDT, Route to Pharmacy Electronically, [facility]/pharmacy #[id number], Partial fill upon patient request if the prescriptio... Start Date: 02/06/23 Status: Ordered ferrous sulfate 325 mg oral enteric coated tablet See Instructions, Take one tablet By Mouth every other day., # 45 tablet, Refills 7, Tot. Refills 7, Maintenance, 12/26/22 9:02:00 EDT, Instructions Replace Required Details, Route to Pharmacy Electronically, [id number], Partial fill upon charlene... Start Date: 12/26/22 Status: Ordered folic acid 1 mg oral tablet 1 mg, 1, tablet, By Mouth, Daily, # 90 tablet, Refills 2, Tot. Refills 2, Maintenance, 12/22/22 11:26:00 EDT, Route to Pharmacy Electronically, [id number], [...] 03/18/23 18:42:00 EDT, Route to Pharmacy Electronically, [facility]/pharmacy #[id number], Partial fill upon patientrequest if [...] Refills, Maintenance, 03/20/23 15:44:00 EDT, ER Tablet, [id number], Partial fill upon patient request if the prescription is for a schedule II opioid drug., 155, cm, 03/18/23 17:03:00 EDT, Heig... Start Date: 03/20/23 Status: Ordered oxyCODONE 5 mg oral tablet 10 mg, 2, tablet, By Mouth, Every 6 hours, PRN, # 12 tablet, Refills 0, Tot. Refills 0, Maintenance, for pain, 03/18/23 18:42:00 EDT, Route to Pharmacy Electronically, [id number], [...] 03/06/23 11:44:00 EDT, Route to Pharmacy Electronically, [id number] Tablet,Partial fill upon patient request if [...] 0 Refills, Maintenance, 05/19/22 9:13:00 EST, Tablet, [facility]/pharmacy #[id number], Partial fill upon patient request [...] Physician Member Role: PCP Address: Address: [address] [place] [address]- Care Team Related Persons Name: EDDIE CHAPPELL Address: [address] [place] [address] Name: EDUARDA LEBLANC Name: DUSTY COOPER Address: [address] Address: home [address]
--- OUTSIDE RECORDS SUMMARY | 2024-02-19 09:19 | XMS_ITS | Continuity of Care Document ---
Author Organization [facility] Address [address] [place] [address]- Care Team Providers Care Electronics Commodity Manager Name Role Phone Abner Nowak MD, Glenda Cox Primary Care Physician Encounter [facility] [place] Date(s): 08/28/22 - 09/27/22 [facility] [address] [place] [id number] Allergies, Adverse Reactions, Alerts No Known Allergies [...] 05/17/22 20:48:00 EST, Route to Pharmacy Electronically, [facility], Partial fill upon patient request if the prescription is... Start Date: 05/17/22 Status: Ordered ondansetron 4 mg oral tablet 1 tablet = 4 mg, By Mouth, Every 8 hours, PRN Nausea & Vomiting, # 10 tablet, 0 Refills, Maintenance, 05/17/22 20:48:00 EST, Tablet, [facility], Partial fill upon patient request ifthe prescription is for a schedule II opioid drug., 155... Start Date: 05/17/22 Status: Ordered PNV By Mouth, Daily, 0 Refills, Maintenance, 09/26/22 10:54:00 EDT, Partial fill upon patient request if the prescription is for a schedule II opioid drug. Start Date: 09/26/22 Status: Ordered pyridoxine 25 mg oral tablet 1 tablet = 25 mg, By Mouth, 3 times a day, PRN Nausea & Vomiting, # 100 tablet, 8 Refills, Acute 10/08/22 14:34:00 EDT, 09/07/22 14:33:00 EDT, [facility]/pharmacy #[id number], Partial fill upon patient request if the prescription is for a schedule II opioid drug.,... Start Date: 09/07/22 Stop Date: 10/08/22 Status: Ordered Tylenol Extra Strength 500 mg oral tablet 2 tablet = 1,000 mg, By Mouth, Every 6 hours, PRN Pain , Moderate, # 24 tablet, 0 Refills, Maintenance, 05/19/22 9:13:00 EST, Tablet, [facility]/pharmacy #[id number], Partial fill upon patient request if the prescription is for a schedule II opioid drug., 155, cm,... Start Date: 05/19/22 Status: Ordered Unisom 25 mg oral tablet 1 tablet = 25 mg, By Mouth, Daily at bedtime, PRN for sleep, # 32 tablet, 0 Refills, Acute 10/08/2313:34:00 EDT, 09/07/22 14:33:00 EDT, Tablet, [id number], Partial fill upon patient request if the prescription is for a schedule II opioid drug... Start Date: 09/07/22 Stop Date: 10/08/22 Status: Ordered Problem List Condition Confirmation Course Effective Dates Status Health St atus Informant Dermatomyositis Confirmed Active Obese class I Confirmed Active Social History Social History Type Response Smoking Status Never (less than 100 in lifetime) entered on: 09/07/22 Sex Patient Care team information Care Team Personnel Name: Abner Nowak MD , Glenda Cox Position: Reference Physician Member Role: PCP Address: Address: [address] [place] [address]- Care Team Related Persons Name: EDDIE CHAPPELL Address: [address] [place] [address] Name: EDUARDA LEBLANC
--- OUTSIDE RECORDS SUMMARY | 2024-02-19 09:19 | XMS_ITS | Continuity of Care Document ---
Author Organization [facility] Address [address] [place] [address]- Care Team Providers Care Laborer Petroleum Refinery Name Role Phone Abner Nowak MD, Nelsy Cox Primary Care Physician Encounter [facility] [place] Date(s): 06/26/20 - 08/05/[address] [address] Attending Physician: Matthew Timmons MD Admitting Physician: Matthew Timmons MD Referring Physician: Matthew Timmons MD
--- OUTSIDE RECORDS SUMMARY | 2024-02-19 09:19 | XMS_ITS | Continuity of Care Document ---
Author Organization [facility] Address [address] [place] [address]- Care Team Providers Care Instruction Dean Name Role Phone Abner Nowak MD, Glenda Cox Primary Care Physician [id number] Date(s): 03/14/23 - 04/19/[address] [address]- Attending Physician: Lyndsay Gutierrez MD Admitting Physician: Lyndsay Gutierrez MD Referring Physician: Jhonny Chan MD Allergies, Adverse Reactions, Alerts No Known Allergies Immunizations Given and Recorded Vaccine Date Status Refusal Reason tetanus/diphtheria/pertussis, acel(Tdap) 01/23/23 Given Medications acetaminophen 325 mg oral capsule 2 capsule = 650 mg, By Mouth, Every 4 hours, PRN as needed for pain, # 50 tablet, 0 Refills, Maintenance, 03/18/23 18:42:00 EDT, Capsule, [id number], Partial fill upon patient request [...] 02/06/23 11:26:00 EDT, Route to Pharmacy Electronically, [facility]/pharmacy #[id number], Partial fill upon patient request if the prescriptio... Start Date: 02/06/23 Status: Ordered ferrous sulfate 325 mg oral enteric coated tablet See Instructions, Take one tablet By Mouth every other day., # 45 tablet, Refills 7, Tot. Refills 7, Maintenance, 12/26/22 9:02:00 EDT, Instructions Replace Required Details, Route to Pharmacy Electronically, [facility]/pharmacy #[id number], Partial fill upon charlene... Start Date: 12/26/22 Status: Ordered folic acid 1 mg oral tablet 1 mg, 1, tablet, By Mouth, Daily, # 90 tablet, Refills 2, Tot. Refills 2, Maintenance, 12/22/22 11:26:00 EDT, Route to Pharmacy Electronically, [facility]/pharmacy #[id number], Partial fill upon patient request [...] 03/18/23 18:42:00 EDT, Route to Pharmacy Electronically, [facility]/pharmacy #[id number], Partial fill upon patientrequest if [...] 0 Refills, Maintenance, 05/19/22 9:13:00 EST, Tablet, [facility]/pharmacy #[id number], Partial fill upon patient request if the prescription is for a schedule II opioid drug., 155, cm,... Start Date: 05/19/22 Status: Ordered Vitamin B12 250 mcg oral tablet 1 tablet = 250 mcg, By Mouth, Daily, # 30 tablet, 0 Refills, Maintenance, 02/08/23 16:07:00 EDT, Tablet, [facility]/pharmacy #[id number], Partial fill upon patient request [...] Physician Member Role: PCP Address: Address: [address] Care Team Related Persons Name: EDDIE CHAPPELL Address: [address] [place] [address] Name: EDUARDA LEBLANC Name: DUSTY COOPER Address: [address] Address: home [address]
--- OUTSIDE RECORDS SUMMARY | 2024-02-19 09:19 | XMS_ITS | Continuity of Care Document ---
Author Organization [facility] Address [address] [place] [address]- Care Team Providers Care Occupational Therapy Department Chair Name Role Phone Abner Nowak MD, Glenda Cox Primary Care Physician En[place] [facility] [place] Date(s): 05/17/22 - 05/17/[address] [address]- Discharge Disposition: [facility] Attending Physician: Terrance Jacobson MD Admitting Physician: Terrance Jacobson MD Referring Physician: Not on Staff, Referring MD Allergies, Adverse Reactions, Alerts No Known [...] 05/17/22 20:48:00 EST, Route to Pharmacy Electronically, [facility], Partial fill upon patient [...] tablet, 1 Refills, Maintenance, 05/17/22 20:48:00 EST, [facility], Partial fill upon patient request if the... Start Date: 05/17/22 Status: Ordered ondansetron 4 mg oral tablet 1 tablet = 4 mg, By Mouth, Every 8 hours, PRN Nausea & Vomiting, # 10 tablet, 0 Refills, Maintenance, 05/17/22 20:48:00 EST, Tablet, [facility], Partial fill upon patient [...] tablet = 1,000 mg, By Mouth, Every 4 hours, PRN for fever, # 24 tablet, 0 Refills, Maintenance, 05/17/22 20:49:00 EST, Tablet, [facility], Partial fill upon patient request if the prescription is for a schedule II opioid drug., 155, cm... Start Date: 05/17/22 Status: Ordered Problem List Condition Confirmation Course Effective Dates Status Health St atus Informant Dermatomyositis Confirmed Active Vital Signs Most recent to oldest [Reference Range]: 1 2 Height 155 cm (05/17/22 2:00 PM) Weight 71.6 kg (05/17/22 2:00 PM) Oxygen Saturation [94-100 %] 100 % (05/17/22 2:00 PM) 98 % (05/17/22 1:56 PM) Pulse Rate [55-90 bpm] 80 bpm (05/17/22 2:00 PM) 101 bpm *H* (05/17/22 1:56 PM) Body Mass Index [18.5-24.99 kg/m2] 29.8 kg/m2 *H* (05/17/22 2:00 PM) Blood Pressure [90-138/55-84 mm Hg] 144/ 74mm Hg *H* (05/17/22 2:00 PM) Respiratory Rate [16-30 br/min] 16 br/mi n (05/17/22 2:00 PM) Temperature [96.8-100.4 DegF] 98.4 DegF (05/17/22 2:00 PM) Mode of Delivery (Oxygen) Room air (05/17/22 2:00 PM) Room air (05/17/22 1:56 PM) Blood pressure sites Arm, right (05/17/22 2:00 PM) Temperature Route Oral (05/17/22 2:00 PM) Dry Weight 71.6 kg (05/17/22 2:00 PM) Weight Obtained Via Standing scale (05/17/22 2:00 PM) Dry Weight Obtained Via Standing scale (05/17/22 2:00 PM) Patient Care team information Care Team Personnel Name: Abner Nowak MD , Kasey Position: Reference Physician Member Role: PCP Address: Address: [address] [place] [address]- Care Team Related Persons Name: TA EDDIE Address: home [address] [place] [id number] Name: EDUARDA LEBLANC
--- OUTSIDE RECORDS SUMMARY | 2024-02-19 09:19 | XMS_ITS | Continuity of Care Document ---
Author Organization [facility] ter Address [address] [place] [address]- Care Team Providers Care Qlikview Developer Name Role Phone Abner Nowak MD, Glenda Cox Primary Care Physician [phone] Encounter [facility] [place] Date(s): 10/11/22 - 10/11/[address] [address]- Encounter Diagnosis Dyspnea(Final) - 10/11/22 Discharge Disposition: A-D/C Home Attending Physician: Sandy Ye MD Admitting Physician: Sandy Ye MD Referring Physician: Not on Staff, Referring [...] 05/17/22 20:48:00 EST, Route to Pharmacy Electronically, [facility], Partial fill upon patient request if the prescription is... Start Date: 05/17/22 Status: Ordered ondansetron 4 mg oral tablet 1 tablet = 4 mg, By Mouth, Every 8 hours, PRN Nausea & Vomiting, # 10 tablet, 0 Refills, Maintenance, 05/17/22 20:48:00 EST, Tablet, [facility], Partial fill upon patient [...] 05/19/22 9:13:00 EST, Tablet, [facility]/pharmacy #[id number], Partial fill upon patient request if the prescription is for a schedule II opioid drug., 155, cm,... Start Date: 05/19/22 Status: Ordered Problem List Condition Confirmation Course Effective Dates Status [facility] Informant Dermatomyositis Confirmed Active Obese class I Confirmed Active Results Radiology Reports * Exam Date Time Procedure Performing Provider Status 10/11/22 7:[address] Angio Chest Bailey Goncalves; Auth (V erified) Notes: (CT Angio Chest) Reason For Exam: PE suspected, Intermediate prob, positive D-dimer,;Other: RESULT: CT Angio Chest EXAMINATION: CT Angio Chest INDICATION: Hx of Present Illness: sob x 1 wk also racing heart ( : pt 14 wks preg [facility] baby clear sent here of eval; Reason: Other:; PE suspected, Intermediate prob, positive D-dimer,; Clinical Question(s): Pulmonary Embolism; Special Instructions: Patient is . MD discussed risks and benefits with the patient.; Order Comment: TECHNIQUE: Spiral CTA of the chest was performed after rapid IV contrast administration without cardiac gating, triggered by an VANITA on the main pulmonary artery. Images are formatted in multiple planes using 2-D multiplanar and 3-D maximum intensity projection. 75 cc of Omnipaque 300 was administered intravenously. Weight-based protocol using automatic tube modulation was used to optimize exposure parameters. CTDIvol Body: 5.99 mGy, DLP Body: 304 mGy*cm. COMPARISONS: None. ANGIOGRAPHIC FINDINGS: No pulmonary embolism to the subsegmental level. Normal caliber pulmonary arteries. No acute aortic abnormality seen on this study performed without cardiac gating. NON-ANGIOGRAPHIC FINDINGS: Manager Business View Findings, Lines and Tubes: None. Trachea and Airways: Patent without evidence of tracheal or endobronchial lesion. Lungs and Pleura: Clear lungs. No effusion or pneumothorax. Mediastinum and moise: No mass or hematoma. No mediastinal or hilar lymphadenopathy. No esophageal abnormality. Normal thyroid. Heart: Heart is normal in size. No pericardial effusion. No coronary arterial calcifications. Chest Wall Soft Tissues: Normal. Diaphragm and upper abdomen: No significant abnormality. Bones: No acute abnormality. IMPRESSION: No evidence of pulmonary embolism. No acute abnormality identified within the chest. I have personally reviewed the images and I agree with this report. WSN: [id number] Ordering Physician: Sandy Ye Dictated By: Karla Llanes MD Dictated Date/Time: 10/11/22 8:55 pm Reviewed By: Arturo Dubose MD Signed By: Arturo Dubose MD Signed Date/Time: 10/11/22 9:00 pm Transcribed By: SMITH Transcribed Date/Time: 10/11/22 8:42 pm * Exam Date Time Procedure Performing Provider Status 10/11/22 6:17 PM US Doppler Ext Lower Venous Bilat Maria Elena Kitchen; Auth (Verified) Notes: (US Doppler Ext Lower Venous Bilat) Reason For Exam: Pain in limb;Other: RESULT: US Doppler Ext Lower Venous Bilat US Doppler Ext Lower Venous Bilat Hx of Present Illness: sob x 1 wk also racing heart ( : pt 14 wks preg went to [facility] baby clear senthere of eval; Reason: Other:; Pain in limb; Clinical Question(s): Thrombosis COMPARISON: None IMAGING TECHNIQUE: Ultrasound of the veins from the groin through the calf was performed using grayscale, color, and spectral Doppler ultrasound assessing for complete compressibility and normal flowcharacteristics. FINDINGS: RIGHT LOWER EXTREMITY: Common femoral vein: Patent. No thrombosis. Femoral vein: Patent. No thrombosis. Popliteal vein: Patent. No thrombosis. Gastrocnemius veins: The visualized portions are patent without evidence of thrombosis. Peroneal veins: The visualized portions are patent without evidence of thrombosis. Posterior tibial veins: The visualized portions are patent without evidence of thrombosis. LEFT LOWER EXTREMITY: Common femoral vein: Patent. No thrombosis. Femoral vein: Patent. No thrombosis. Popliteal vein: Patent. No thrombosis. Gastrocnemius veins: The visualized portions are patent without evidence of thrombosis. Peroneal veins: The visualized portions are patent without evidence of thrombosis. Posterior tibial veins: The visualized portions are patent without evidence of thrombosis. OTHER FINDINGS: None. IMPRESSION: No evidence of deep venous thrombosis. WSN: [id number] Ordering Physician: Jordon Richardson Dictated By: Paul Sousa MD Dictated Date/Time: 10/11/22 6:19 pm Reviewed By: Paul Sousa MD Signed By: Paul Sousa MD Signed Date/Time: 10/11/22 6:19 pm Transcribed By: SMITH Transcribed Date/Time: 10/11/22 6:19 pm Vital Signs Most recent to oldest [Reference Range]: 1 2 3 Oxygen Saturation [94-100 %] 98 % (10/11/22 8:48 PM) 100 % (10/11/22 6:39 PM) 100 % (10/11/22 4:12 PM) Pulse Rate [55-90 bpm] 86 bpm (10/11/22 8:48 PM) 91 bpm *H* (10/11/22 6:39 PM) 90 bpm (10/11/22 4:12 PM) Blood Pressure [90-138/55-84 mm Hg] 116/61mm Hg (10/11/22 8:48 PM) 131/81mm Hg (10/11/22 6:39 PM) 121/61mm Hg (10/11/22 4:12 PM) Respiratory Rate [16-30 br/min] 18 br/min (10/11/22 8:48 PM) 18 br/min (10/11/22 6:39 PM) 16 br/min (10/11/22 4:12 PM) Temperature [96.8-100.4 DegF] 98.2 DegF (10/11/22 8:48 PM) 98.3 DegF (10/11/22 6:39 PM) 98.1 DegF (10/11/22 4:12 PM) Mode of Delivery (Oxygen) Room air (10/11/22 8:48 PM) Room air (10/11/22 6:39 PM) Room air (10/11/22 4:12 PM) Blood pressure sites Arm, right (10/11/22 8:48 PM) Arm, right (10/11/22 6:39 PM) Arm, right (10/11/22 4:12 PM) Temperature Route Oral (10/11/22 8:48 PM) Oral (10/11/22 6:39 PM) Oral (10/11/22 4:12 PM) Social History Social History Type Response Smoking Status Never (less than 100 in lifetime) entered on: 09/07/22 Sex EKG study * Event Display: ECG 12-Lead Authored Date: Please click on pdf link to open report * Event Display: ECG 12-Lead Authored Date: Ventricular Rate: 87 BPM Atrial Rate: 87 BPM P-R Interval: 154 ms QRS Duration: 78 ms Q-T Interval: 356 ms QTC Calculation(Bazett): 428 ms P [place]: 71 degrees R [place]: 44 degrees T [place]: 26 degrees Normal sinus rhythm Normal ECG When compared with ECG of 11-OCT-2022 13:00, No significant change was found Confirmed by MENDY CHOPRA MD () on 10/11/2022 7:10:45 PM [place]: MENDY CHOPRA MD * Event Display: ECG 12-Lead Authored Date: [id number] Please click on pdf link to open report * Event Display: ECG 12-Lead Authored Date: Ventricular Rate: 84 BPM Atrial Rate: 84 BPM P-R Interval: 148 ms QRS Duration: 82 ms Q-T Interval: 382 ms QTC Calculation(Bazett): 451 ms P [place]: 54 degrees R [place]: 20 degrees T [place]: 13 degrees Normal sinus rhythm Possible Left atrial enlargement Borderline ECG When compared with ECG of 12-NOV-2020 09:19, No significant change was found Confirmed by MENDY CHOPRA MD ([id number]) on 10/11/2022 4:20:44 PM [place]: MENDY CHOPRA MD Note * Sandy Ye MD: PERFORM Event Display: Patient Education Leaflets Authored Date: [id number] Shortness of Breath (Dyspnea) ?? [id number] Shortness of Breath (Dyspnea) Shortness of breath is the feeling that you can't catch your breath or get enough air. It's also known as dyspnea. Dyspnea can be caused by many different conditions. They include: ??? Acute asthma attack ??? Worsening of chronic lung diseases such as chronic bronchitis and emphysema (COPD) ??? Heart failure. This is when weak heart muscle causes extra fluid to collect in the lungs. ??? Panic attacks or anxiety. Fear can cause rapid breathing (hyperventilation). ??? Pneumonia, or an infection in the lung tissue ??? Exposure to toxic substances, fumes, smoke, or certain medicines ??? Blood clot in the lung (pulmonary embolism). This is often from a piece of blood clot in adeep vein of the leg (deep vein thrombosis) that breaks off and travels to the lungs. ??? Heart attack or heart-related chest pain (angina) ??? Anemia ??? Collapsed lung (pneumothorax) ??? Dehydration ??? Based on your visit today, the exact cause of your shortness of breath is not certain. Your tests don???t show any of the serious causes of dyspnea. You may need other tests to find out if you have aserious problem. It???s important to watch for any new symptoms or symptoms that get worse. Follow up with your healthcare provider as directed. Home care Follow these tips to take care of yourself at home: ??? When your symptoms are better, go back to your usual activities. ??? If you smoke, you should stop. Join a quit-smoking program or ask your healthcare provider for help. ??? Eat a healthy diet and get plenty of sleep. ??? Get regular exercise.Talk with your healthcare provider before starting to exercise, especially if you have other medical problems. ??? Discuss with your healthcare provider about cutting down on the amount of caffeine and stimulants you consume. ?? Follow-up care Follow up with your healthcare provider, or as advised. If tests were done, you will be told if your treatment needs to be changed. You can call as directed for the results. If an X-ray was taken, you will be told of any new findings that may affect your care. ?? Call 911 Shortness of breath may be a sign of a serious medical problem. For example, it may be a problem with your heart or lungs. Call 911 if you have worsening shortness of breath or trouble breathing, especially with any of the symptoms below: ??? Shortness of breath or wheezing ??? Confusion or difficulty waking ??? Fainting or loss of consciousness ??? Fast or irregular heartbeat ??? Coughing up blood ??? Unusual pain in your chest, arm, shoulder, neck, or upper back ??? Unusual sweating ??? Feeling of doom ??? Lips or skin looks blue, purple, or lang in color ??? Feel dizzy ?? When to seek medical advice Call your healthcare provider right away if any of these occur: ??? Redness, pain or swelling in your leg, arm, or other body area ??? Swelling in both legs or ankles ??? Fast weight gain ??? Weakness ??? Fever of 100.4??F (38??C) or higher, or as directed by your healthcare provider ?? Last Reviewed Date: 2021 ?? [id number] The [employer]. All rights reserved. This information is not intended as a substitute for professional medical care. Always follow your healthcare professional's instructions. ?? US.doppler Lower extremity vein - bilateral * BHSPowerscribe , CIS S: TRANSCPaul Harris MD: VERIFY Event Display: Result: Authored Date: [id number] US Doppler Ext Lower Venous Bilat Hx of Present Illness: sob x 1 wk also racing heart ( : pt 14 wks preg went to [facility] baby clear senthere of eval; Reason: Other:; Pain in limb; Clinical Question(s): Thrombosis COMPARISON: None IMAGING TECHNIQUE: Ultrasound of the veins from the groin through the calf was performed using grayscale, color, and spectral Doppler ultrasound assessing for complete compressibility and normal flowcharacteristics. FINDINGS: RIGHT LOWER EXTREMITY: Common femoral vein: Patent. No thrombosis. Femoral vein: Patent. No thrombosis. Popliteal vein: Patent. No thrombosis. Gastrocnemius veins: The visualized portions are patent without evidence of thrombosis. Peroneal veins: The visualized portions are patent without evidence of thrombosis. Posterior tibial veins: The visualized portions are patent without evidence of thrombosis. LEFT LOWER EXTREMITY: Common femoral vein: Patent. No thrombosis. Femoral vein: Patent. No thrombosis. Popliteal vein: Patent. No thrombosis. Gastrocnemius veins: The visualized portions are patent without evidence of thrombosis. Peroneal veins: The visualized portions are patent without evidence of thrombosis. Posterior tibial veins: The visualized portions are patent without evidence of thrombosis. OTHER FINDINGS: None. IMPRESSION: No evidence of deep venous thrombosis. WSN: [id number] Ordering Physician: Jordon Richardson Dictated By: Paul Sousa MD Dictated Date/Time: 10/11/22 6:19 pm Reviewed By: Paul Sousa MD Signed By: Paul Sousa MD Signed Date/Time: 10/11/22 6:19 pm Transcribed By: SMITH Transcribed Date/Time: 10/11/22 6:19 pm CTA Chest vessels W contrast IV * [facility]SPowerscribe , CIS S: TRANSCRIBE Arturo Dubose MD S: VERIFY Karla Llanes MD: SIGN Event Display: Result: Authored Date: EXAMINATION: CT Angio Chest INDICATION: Hx of Present Illness: sob x 1 wk also racing heart ( : pt 14 wks preg [facility] baby clear sent here of eval; Reason: Other:; PE suspected, Intermediate prob, positive D-dimer,; Clinical Question(s): Pulmonary Embolism; Special Instructions: Patient is . discussed risks and benefits with the patient.; Order Comment: TECHNIQUE: Spiral CTA of the chest was performed after rapid IV contrast administration without cardiac gating, triggered by an VANITA on the main pulmonary artery. Images are formatted in multiple planes using 2-D multiplanar and 3-D maximum intensity projection. 75 cc of Omnipaque 300 was administered intravenously. Weight-based protocol using automatic tube modulation was used to optimize exposure parameters. CTDIvol Body: 5.99 mGy, DLP Body: 304 mGy*cm. COMPARISONS: None. ANGIOGRAPHIC FINDINGS: No pulmonary embolism to the subsegmental level. Normal caliber pulmonary arteries. No acute aortic abnormality seen on this study performed without cardiac gating. NON-ANGIOGRAPHIC FINDINGS: Manager Business View Findings, Lines and Tubes: None. Trachea and Airways: Patent without evidence of tracheal or endobronchial lesion. Lungs and Pleura: Clear lungs. No effusion or pneumothorax. Mediastinum and moise: No mass or hematoma. No mediastinal or hilar lymphadenopathy. No esophageal abnormality. Normal thyroid. Heart: Heart is normal in size. No pericardial effusion. No coronary arterial calcifications. Chest Wall Soft Tissues: Normal. Diaphragm and upper abdomen: No significant abnormality. Bones: No acute abnormality. IMPRESSION: No evidence of pulmonary embolism. No acute abnormality identified within the chest. I have personally reviewed the images and I agree with this report. WSN: [id number] Ordering Physician: Sandy Ye Dictated By: Karla Llanes MD Dictated Date/Time: 10/11/22 8:55 pm Reviewed By: Arturo Dubose MD Signed By: Arturo Dubose MD Signed Date/Time: 10/11/22 9:00 pm Transcribed By: SMITH Transcribed Date/Time: 10/11/22 8:42 pm Patient Care team information Care Team Personnel Name: Abner Nowak MD , Glenda Cox Position: Reference Physician Member Role: PCP Address: Address: [address] [place] [address]- Name: Sandy Ye MD Position: [facility] ED Medicine MD Member Role: Admitting Physician Address: Address: [address] [place] [address] [place] [address]- Name: Yvrose Cm Position: [facility] ED TA [facility] Member Role: Stripper Color Care Team Related Persons Name: EDDIE CHAPPELL Address: home [address] [place] [address] Name: EDUARDA LEBLANC
--- OUTSIDE RECORDS SUMMARY | 2024-02-19 09:19 | XMS_ITS | Continuity of Care Document ---
Author Organization [facility] Address [address] [place] [address]- Care Team Providers Care Regulatory Associate Name Role Phone Abner Nowak MD, Glenda Cox Primary Care Physician [phone] [id number] Date(s): 12/26/22 - 04/19/[address] [address] Attending Physician: Not on Staff, Attending MD Allergies, Adverse Reactions, Alerts No Known Allergies Immunizations Given and Recorded Vaccine Date Status Refusal Reason tetanus/diphtheria/pertussis, acel(Tdap) 01/23/23 Given Medications acetaminophen 325 mg oral capsule 2 capsule = 650 mg, By Mouth, Every 4 hours, PRN as needed for pain, # 50 tablet, 0 Refills, Maintenance, 03/18/23 18:42:00 EDT, Capsule, [facility]/pharmacy #[id number], Partial fill upon patient request [...] 02/06/23 11:26:00 EDT, Route to Pharmacy Electronically, [facility]acy #[id number], Partial fill upon patient request [...] 03/18/23 18:42:00 EDT, Route to Pharmacy Electronically, [facility]/pharmacy #[id number], Partial fill upon patientrequest if the [...] Physician Member Role: PCP Address: Address: [address] [place] [address]- Care Team Related Persons Name: EDDIE CHAPPELL Address: home [address] [place] [address] Name: EDUARDA LEBLANC Name: DUSTY COOPER Address: [address] Address: home [address]
--- OUTSIDE RECORDS SUMMARY | 2024-02-19 09:19 | XMS_ITS | Continuity of Care Document ---
Author Organization [facility] ter Address [address] [place] [address]- Care Team Providers Care Custom Grinder Name Role Phone Abner Nowak MD, Glenda Cox Primary Care Physician [phone] Encounter [facility] Date(s): 02/14/23 - 04/18/[address] [address] Attending Physician: Deven Betancur MD Referring Physician: Deven Betancur MD Allergies, Adverse Reactions, Alerts No Known Allergies Immunizations Given and Recorded Vaccine Date Status Refusal Reason tetanus/diphtheria/pertussis, acel(Tdap) 01/23/23 Given Medications acetaminophen 325 mg oral capsule 2 capsule = 650 mg, By Mouth, Every 4 hours, PRN as needed for pain, # 50 tablet, 0 Refills, Maintenance, 03/18/23 18:42:00 EDT, Capsule, [facility]/pharmacy #[id number], Partial fill upon patient request if the prescription is for a schedule II opioid drug., 155,... Start Date: 03/18/23 Status: Ordered aspirin 81 mg oral delayed release tablet 162 mg, 2, tablet, By Mouth, Daily at bedtime, # 90 tablet, Refills 4, Tot. Refills 4, Maintenance,11/21/22 10:15:00 EDT, Route to Pharmacy Electronically, [facility]/pharmacy #[id number], Partial fill upon patient [...] 02/06/23 11:26:00 EDT, Route to Pharmacy Electronically, [facility]/pharmacy #[id number], Partial fill upon patient request if the prescriptio... Start Date: 02/06/23 Status: Ordered ferrous sulfate 325 mg oral enteric coated tablet See Instructions, Take one tablet By Mouth every other day., # 45 tablet, Refills 7, Tot. Refills 7, Maintenance, 12/26/22 9:02:00 EDT, Instructions Replace Required Details, Route to Pharmacy Electronically, [facility]/pharmacy #[id number], Partial fill upon charlene... Start Date: 12/26/22 Status: Ordered folic acid 1 mg oral tablet 1 mg, 1, tablet, By Mouth, Daily, # 90 tablet, Refills 2, Tot. Refills 2, Maintenance, 12/22/22 11:26:00 EDT, Route to Pharmacy Electronically, [facility]/pharmacy #[id number], Partial fill upon patient [...] 03/18/23 18:42:00 EDT, Route to Pharmacy Electronically, [facility]/pharmacy #[id number], Partial fill upon patientrequest [...] Refills, Maintenance, 03/20/23 15:44:00 EDT, ER Tablet, [facility]/pharmacy #[id number], Partial fill upon patient request if the prescription is for a schedule II opioid drug., 155, cm, 03/18/23 17:03:00 EDT, Heig... Start Date: 03/20/23 Status: Ordered oxyCODONE 5 mg oral tablet 10 mg, 2, tablet, By Mouth, Every 6 hours, PRN, # 12 tablet, Refills 0, Tot. Refills 0, Maintenance, for pain, 03/18/23 18:42:00 EDT, Route to Pharmacy Electronically, [facility]/pharmacy #[id number], Partial fill upon patient [...] 03/06/23 11:44:00 EDT, Route to Pharmacy Electronically, [facility]/pharmacy #[id number] Tablet,Partial fill upon patient request if the prescripti... Start Date: 03/06/23 Status: Ordered simethicone 125 mg oral tablet, chewable 1 tablet = 125 mg, Chew, 4 times a day, # 48 tablet, 0 Refills, Maintenance, 03/18/23 18:42:00 EDT,Chew Tablet, [facility]/pharmacy #[id number], Partial fill upon patient request if the prescription is for a schedule II opioid drug., 155, cm, 03/18/23 17:03:00 ED... Start Date: 03/18/23 Status: Ordered Tylenol Extra Strength 500 mg oral tablet 2 tablet = 1,000 mg, By Mouth, Every 6 hours, PRN Pain , Moderate, # 24 tablet, 0 Refills, Maintenance, 05/19/22 9:13:00 EST, Tablet, [facility]/pharmacy #[id number], Partial fill upon patient request if the prescription is for a schedule II opioid drug., 155, cm,... Start Date: 05/19/22 Status: Ordered Vitamin B12 250 mcg oral tablet 1 tablet = 250 mcg, By Mouth, Daily, # 30 tablet, 0 Refills, Maintenance, 02/08/23 16:07:00 EDT, Tablet, [facility]/pharmacy #[id number], Partial fill upon patient [...] Physician Member Role: PCP Address: Address: [address] [place] [address]- Care Team Related Persons Name: EDDIE CHAPPELL Address: home [address] [place], [place] Name: EDUARDA LEBLANC Name: DUSTY COOPER Address: [address] Address: home [address] [place] [address]
--- OUTSIDE RECORDS SUMMARY | 2024-02-19 09:19 | XMS_ITS | Continuity of Care Document ---
Author Organization [facility] Address [address] [place] [address]- Care Team Providers Care Director Hris Name Role Phone Abner Nowak MD, Glenda Cox Primary Care Physician [id number] Date(s): 10/30/22 - 11/29/[address] [address] Allergies, Adverse Reactions, Alerts No Known Allergies Medications aspirin 81 mg oral delayed release tablet 162 mg, 2, tablet, By Mouth, Daily at bedtime, # 90 tablet, Refills 4, Tot. Refills 4, Maintenance,11/21/22 10:15:00 EDT, Route to Pharmacy Electronically, [facility]/pharmacy #[id number], Partial fill upon patient request if [...] 11/21/22 10:13:00 EDT, Route to Pharmacy Electronically, [facility]/pharmacy #[id number], Partial fill upon patient request if [...] tablet, 0 Refills, Maintenance, 11/23/22 15:58:00 EDT, [facility]/pharmacy #[id number], Partial fill upon patient request if the [...] Refills, Maintenance, 05/19/22 9:13:00 EST, Tablet, [facility]/pharmacy #[id number], Partial fill upon patient request if the [...] PCP Address: Address: [address] [place] [address]- Care Team Related Persons Name: CHAPPELLEDDIE Chawla Address: home [address] [place] [address] Name: EDUARDA LEBLANC
--- OUTSIDE RECORDS SUMMARY | 2024-02-19 09:19 | XMS_ITS | Continuity of Care Document ---
Author Organization [facility] Address [address] [place] [address]- Care Team Providers Care Search Marketing Analyst Name Role Phone Abner Nowak MD, Glenda Cox Primary Care Physician [id number] Date(s): 05/18/22 - 06/30/[address] [address]- Attending Physician: Not on Staff, Attending MD [...] 05/17/22 20:48:00 EST, Route to Pharmacy Electronically, [facility], Partial fill upon patient request [...] tablet, 1 Refills, Maintenance, 05/17/22 20:48:00 EST, [facility], Partial fill upon patient request if the... Start Date: 05/17/22 Status: Ordered miSOPROStol 200 mcg oral tablet See Instructions, place 2 tabs between each cheek for 30 min then swallow the rest., # 4 tablet, 1 Refills, Maintenance, 05/18/22 19:15:00 EST, [facility]/pharmacy #[id number], Partial fill upon patient request if the prescription is for a schedule II opioid drug.... Start Date: 05/18/22 Status: Ordered ondansetron 4 mg oral tablet 1 tablet = 4 mg, By Mouth, Every 8 hours, PRN Nausea & Vomiting, # 10 tablet, 0 Refills, Maintenance, 05/17/22 20:48:00 EST, Tablet, [facility], Partial fill upon patient request ifthe [...] 0 Refills, Maintenance, 05/19/22 9:13:00 EST, Tablet, [facility]/pharmacy #[id number], Partial fill upon patient request if the prescription is for a schedule II opioid drug., 155, cm,... Start Date: 05/19/22 Status: Ordered Problem List Condition Confirmation Course Effective Dates Status Health St atus Informant Dermatomyositis Confirmed Active Patient Care team information Care Team Personnel Name: Abner Nowak MD , Glenda Cox Position: Reference Physician Member Role: PCP Address: Address: [address] [place] [address]- [place] Care Team Related Persons Name: EDDIE CHAPPELL Address: home [address] [place] [address] Name: EDUARDA LEBLANC
--- OUTSIDE RECORDS SUMMARY | 2024-02-19 09:19 | XMS_ITS | Continuity of Care Document ---
Author Organization [facility] Address [address] [place] [address]- Care Team Providers Care Civil Defense Director Name Role Phone Abner Nowak MD, Nelsy Cox Primary Care Physician Encounter [facility] Date(s): 08/27/20 - 09/26/20 [facility] [address] [place] [id number]
--- OUTSIDE RECORDS SUMMARY | 2024-02-19 09:19 | XMS_ITS | Continuity of Care Document ---
Author Organization [facility] Address [address] [place] [address]- Care Team Providers Care Boxcar Weigher Name Role Phone Abner Nowak MD, Glenda Cox Primary Care Physician Encounter [facility] Date(s): 11/23/22 - 12/23/[address] [address]- Allergies, Adverse Reactions, Alerts No Known Allergies Medications aspirin 81 mg oral delayed release tablet 162 mg, 2, tablet, By Mouth, Daily at bedtime, # 90 tablet, Refills 4, Tot. Refills 4, Maintenance,11/21/22 10:15:00 EDT, Route to Pharmacy Electronically, [facility]/pharmacy #[id number], Partial fill upon patient request [...] 12/22/22 11:26:00 EDT, Route to Pharmacy Electronically, [facility]/pharmacy #[id number], Partial fill upon patient request [...] tablet, 0 Refills, Maintenance, 11/23/22 15:58:00 EDT, [id number], Partial fill upon patient request if the [...] 0 Refills, Maintenance, 05/19/22 9:13:00 EST, Tablet, [facility]/pharmacy #[id number], Partial fill upon patient request if the [...] Physician Member Role: PCP Address: Address: [address] [place] [address]- Care Team Related Persons Name: TA EDDIE Address: [address] [place] [address] Name: EDUARDA LEBLANC
--- OUTSIDE RECORDS SUMMARY | 2024-02-19 09:19 | XMS_ITS | Continuity of Care Document ---
Author Organization [facility] Address [address] [place] [address]- Care Team Providers Care Folder Tier Name Role Phone Abner Nowak MD, Kasey Primary Care Physician Encounter [facility] Date(s): 06/05/22 - 07/05/[address] [facility] [address] [place] [id number] Attending Physician: Keyana Simons Admitting Physician: Keyana Simons Referring Physician: AdmtrKeyana Allergies, Adverse Reactions, Alerts [...] 05/17/22 20:48:00 EST, Route to Pharmacy Electronically, [facility], Partial fill upon patient [...] tablet, 1 Refills, Maintenance, 05/17/22 20:48:00 EST, [facility], Partial fill upon patient request if the... Start Date: 05/17/22 Status: Ordered miSOPROStol 200 mcg oral tablet See Instructions, place 2 tabs between each cheek for 30 min then swallow the rest., # 4 tablet, 1 Refills, Maintenance, 05/18/22 19:15:00 EST, [facility]/pharmacy #[id number], Partial fill upon patient request if the prescription is for a schedule II opioid drug.... Start Date: 05/18/22 Status: Ordered ondansetron 4 mg oral tablet 1 tablet = 4 mg, By Mouth, Every 8 hours, PRN Nausea & Vomiting, # 10 tablet, 0 Refills, Maintenance, 05/17/22 20:48:00 EST, Tablet, [facility], Partial fill upon patient request ifthe [...] 0 Refills, Maintenance, 05/19/22 9:13:00 EST, Tablet, [facility]/pharmacy #[id number], Partial fill upon patient request if the prescription is for a schedule II opioid drug., 155, cm,... Start Date: 05/19/22 Status: Ordered Problem List Condition Confirmation Course Effective Dates Status Health St atus Informant Dermatomyositis Confirmed Active Patient Care team information Care Team Personnel Name: Abner Nowak MD , Glenda Cox Position: Reference Physician Member Role: PCP Address: Address: [address] [place] [address]- [place] Care Team Related Persons Name: EDDIE CHAPPELL Address: [address] [place] [address] Name: EDUARDA LEBLANC
--- OUTSIDE RECORDS SUMMARY | 2024-02-19 09:19 | XMS_ITS | Continuity of Care Document ---
Author Organization [facility] Address [address] [place] [address]- Care Team Providers Care Concessions Manager Name Role Phone Abner Nowak MD, Glenda Cox Primary Care Physician Encounter [facility] Date(s): 02/08/23 - 03/10/[address] [address]- Allergies, Adverse Reactions, Alerts No Known Allergies Immunizations Given and Recorded Vaccine Date Status Refusal Reason tetanus/diphtheria/pertussis, acel(Tdap) 01/23/23 Given Medications aspirin 81 mg oral delayed release tablet 162 mg, 2, tablet, By Mouth, Daily at bedtime, # 90 tablet, Refills 4, Tot. Refills 4, Maintenance,11/21/22 10:15:00 EDT, Route to Pharmacy Electronically, [facility]/pharmacy #[id number], Partial fill upon patient request [...] 11:26:00 EDT, Route to Pharmacy Electronically, [facility]/pharmacy #[id number], Partial fill upon patient request if the prescriptio... Start Date: 02/06/23 Status: Ordered ferrous sulfate 325 mg oral enteric coated tablet See Instructions, Take one tablet By Mouth every other day., # 45 tablet, Refills 7, Tot. Refills 7, Maintenance, 12/26/22 9:02:00 EDT, Instructions Replace Required Details, Route to Pharmacy Electronically, [facility]/pharmacy #[id number], Partial fill upon charlene... Start Date: 12/26/22 Status: Ordered folic acid 1 mg oral tablet 1 mg, 1, tablet, By Mouth, Daily, # 90 tablet, Refills 2, Tot. Refills 2, Maintenance, 12/22/22 11:26:00 EDT, Route to Pharmacy Electronically, [facility]/pharmacy #[id number], Partial fill upon patient request [...] opioid drug. Start Date: 11/12/20 Status: Ordered MiraLax oral powder for reconstitution = 17 Gm, By Mouth, Daily, dissolve in water before taking, # 255 Gm, 0 Refills, Maintenance, 02/06/23 11:26:00 EDT, REC Powder, [facility]/pharmacy #[id number], Partial fill upon patient request [...] 11:44:00 EDT, Route to Pharmacy Electronically, [facility]/pharmacy #[id number] Tablet,Partial fill upon patient request if the prescripti... Start Date: 03/06/23 Status: Ordered triamcinolone 0.025% topical cream 1 application, Topically, 2 times a day, for 14 days, # 15 Gm, 0 Refills, Acute 03/20/23 11:44:00 EDT, 03/06/23 11:44:00 EDT, Cream, [id number], Partial fill upon patient request if the prescription is for a schedule II opioid drug., 1 applica... Start Date: 03/06/23 Stop Date: 03/20/23 Status: Ordered Tylenol Extra Strength 500 mg [...] Physician Member Role: PCP Address: Address: [address] [place] [address]- Care Team Related Persons Name: EDDIE CHAPPELL Address: home [address] [place] [address] Name: EDUARDA LEBLANC
--- OUTSIDE RECORDS SUMMARY | 2024-02-19 09:19 | XMS_ITS | Continuity of Care Document ---
Author Organization [facility] Address [address] [place] [address]- Care Team Providers Care Community Integration Specialist Name Role Phone Abner Nowak MD, Glenda Cox Primary Care Physician Encounter [facility] Date(s): 03/16/23 - 04/15/[address] [address]- Allergies, Adverse Reactions, Alerts No Known Allergies Immunizations Given and Recorded Vaccine Date Status Refusal Reason tetanus/diphtheria/pertussis, acel(Tdap) 01/23/23 Given Medications acetaminophen 325 mg oral capsule 2 capsule = 650 mg, By Mouth, Every 4 hours, PRN as needed for pain, # 50 tablet, 0 Refills, Maintenance, 03/18/23 18:42:00 EDT, Capsule, [facility]/pharmacy #[id number], Partial fill upon patient request if [...] EDT, Route to Pharmacy Electronically, [facility]/pharmacy #[id number], Partial fill upon patient request if the prescriptio... Start Date: 02/06/23 Status: Ordered ferrous sulfate 325 mg oral enteric coated tablet See Instructions, Take one tablet By Mouth every other day., # 45 tablet, Refills 7, Tot. Refills 7, Maintenance, 12/26/22 9:02:00 EDT, Instructions Replace Required Details, Route to Pharmacy Electronically, [facility]/pharmacy #[id number], Partial fill upon charlene... Start Date: 12/26/22 Status: Ordered folic acid 1 mg oral tablet 1 mg, 1, tablet, By Mouth, Daily, # 90 tablet, Refills 2, Tot. Refills 2, Maintenance, 12/22/22 11:26:00 EDT, Route to Pharmacy Electronically, [facility]/pharmacy #[id number], Partial fill upon patient request if [...] 18:42:00 EDT, Route to Pharmacy Electronically, [facility]/pharmacy #[id number], Partial fill upon patientrequest if the prescription is for a schedule II op... Start Date: 03/18/23 Status: Ordered MiraLax oral powder for reconstitution = 17 Gm, By Mouth, Daily, dissolve in water before taking, # 255 Gm, 0 Refills, Maintenance, 02/06/23 11:26:00 EDT, REC Powder, [facility]/pharmacy #[id number], Partial fill upon patient request if [...] Physician Member Role: PCP Address: Address: [address] Care Team Related Persons Name: EDDIE CHAPPELL Address: [address] [place] [address] Name: EDUARDA LEBLANC Name: DUSTY COOPER Address: [address] Address: home [address]
--- OUTSIDE RECORDS SUMMARY | 2024-02-19 09:19 | XMS_ITS | Continuity of Care Document ---
Author Organization [facility] Address [address] [place] [address]- Care Team Providers Care Bag Sorter Name Role Phone Abner Nowak MD, Glenda Cox Primary Care Physician [id number] Date(s): 10/31/22 - 12/28/[address] [address]- Attending Physician: Not on Staff, Attending MD Allergies, Adverse Reactions, Alerts No Known Allergies Medications aspirin 81 mg oral delayed release tablet 162 mg, 2, tablet, By Mouth, Daily at bedtime, # 90 tablet, Refills 4, Tot. Refills 4, Maintenance,11/21/22 10:15:00 EDT, Route to Pharmacy Electronically, [facility]/pharmacy #[id number], Partial fill upon patient request [...] Replace Required Details, Route to Pharmacy Electronically, [facility]/pharmacy #[id number], Partial fill upon charlene... Start Date: 12/26/22 Status: Ordered folic acid 1 mg oral tablet 1 mg, 1, tablet, By Mouth, Daily, # 90 tablet, Refills 2, Tot. Refills 2, Maintenance, 12/22/22 11:26:00 EDT, Route to Pharmacy Electronically, [facility]/pharmacy #[id number], Partial fill upon patient request [...] tablet, 0 Refills, Maintenance, 11/23/22 15:58:00 EDT, [facility]/pharmacy #[id number], Partial fill upon patient request [...] 0 Refills, Maintenance, 05/19/22 9:13:00 EST, Tablet, [facility]/pharmacy #[id number], Partial fill upon patient request if the [...] Care team information Care Team Personnel Name: Glenda Marinelli MD Position: Reference Physician Member Role: PCP Address: Address: [address] [place] [address]- Care Team Related Persons Name: EDDIE CHAPPELL Address: home [address] [place] [address] Name: EDUARDA LEBLANC
--- OUTSIDE RECORDS SUMMARY | 2024-02-19 09:19 | XMS_ITS | Continuity of Care Document ---
Author Organization [facility] ter Address [address] [place] [address]- Care Team Providers Care Fuel Retrofitting Technician Name Role Phone Abner Nowak MD, Glenda Cox Primary Care Physician Encounter [facility] Date(s): 05/17/22 - 05/17/[address] [address]- Discharge Disposition: A-D/C Home Attending Physician: Deven Betancur MD Admitting Physician: Deven Betancur MD Referring Physician: Deven [...] 05/17/22 20:48:00 EST, Route to Pharmacy Electronically, [facility], Partial fill upon patient request [...] tablet, 1 Refills, Maintenance, 05/17/22 20:48:00 EST, [facility], Partial fill upon patient request if the... Start Date: 05/17/22 Status: Ordered ondansetron 4 mg oral tablet 1 tablet = 4 mg, By Mouth, Every 8 hours, PRN Nausea & Vomiting, # 10 tablet, 0 Refills, Maintenance, 05/17/22 20:48:00 EST, Tablet, [facility], Partial fill upon patient request [...] 0 Refills, Maintenance, 05/17/22 20:49:00 EST, Tablet, [facility], Partial fill upon patient request if the prescription is for a schedule II opioid drug., 155, cm... Start Date: 05/17/22 Status: Ordered Problem List Condition Confirmation Course Effective Dates Status Health St atus Informant Dermatomyositis Confirmed Active Results Radiology Reports * Exam Date Time Procedure Performing Provider Status 05/17/22 6:13 PM US Uterus Transvaginal Brielle Bro; Auth (Verified) Notes: (US Uterus Transvaginal) Reason For Exam: spotting @ 9w;Bleeding RESULT: US Uterus Transvaginal US Uterus Transvaginal Reason: Bleeding; spotting @ 9w; Clinical Question(s): Other:; Order Comment: US Uterus Transvaginal Prep COMPARISON: 05/02/2022 TECHNIQUE: Transabdominal and transvaginal ultrasound with grayscale and color Doppler analysis. FINDINGS: Last menstrual period (LMP): 03/02/2022. Gestational age (GA) by LMP: 10w6d. UTERUS AND GESTATIONAL STRUCTURES: Normal gestational sac containing a yolk sac is identified within the endometrial cavity. No heart rate is appreciated. No cardiac activity is observed medially. Krebs-rump length (CRL): 2.3 cm. Ultrasound age of 8w4d. Uterus: Retroverted. 9.3 x 5.4 x 6.9 cm, volume 182.0 cc. No masses. No abnormalities of the cervix. RIGHT OVARY: Size: 3.7 x 1.0 x 1.8 cm, volume 3.7 cc. Morphology: Normal echotexture. No pathologic cysts or mass. Normal color Doppler appearance. LEFT OVARY: Size: 3.1 x 2.2 x 2.0 cm, volume 7.1 cc. Morphology: Normal echotexture. There is a 0.8 x 0.6 x 0.4 cm echogenic focus in the left ovary with minimal internal vascularity. Normal color Doppler appearance. FREE FLUID: Mild free fluid in bilateral adnexae. IMPRESSION: 1. No heart rate or cardiac activity in a fetus with ultrasound age of 8w4d. Estimated gestational age by ultrasound is discordant with estimated age by clinical parameters. 2. Subcentimeter echogenic focus with mild internal vascularity in the left ovary could represent an involuting corpus luteum cyst or a fat-containing lesion. Follow-up with ultrasound in 6-8 weeks should be considered. I have personally reviewed the images and I agree with this report. WSN: [id number] Ordering Physician: Kimberlee Padilla Dictated By: Sundar Lopez MD Dictated Date/Time: 05/17/22 6:49 pm Reviewed By: Maria G Peña MD Signed By: Maria G Peña MD Signed Date/Time: 05/17/22 6:54 pm Transcribed By: SMITH Transcribed Date/Time: 05/17/22 6:41 pm Note * Funk RN, Tangela T: PERFORM Event Display: Discharge/Transfer Note Hospital Authored Date: [id number] Nursing Discharge Note Entered On: 05/17/2022 22:01 EST Performed On: 05/17/2022 22:00 EST by Tangela Julian RN Nursing Discharge Note 2 Discharge Time : 05/17/2022 22:00 EST Discharge Level of Care at Discharge : Home/Long Term/Foster Care Patient Left Unit Via : Ambulatory Patient Accompanied Off Unit with : Other: alone DC Instructions Provided & Signed by Pt : Yes Patient Understands D/C Instructions : Yes Patient Instructions Discharge Signed : Yes Did Pt have Specialty Bed or Wound Vac : No Tangela Julian RN - 05/17/2022 22:00 EST * Tangela Julian RN: PERFORM Event Display: Patient Education/Instruction Authored Date: [id number] Inpatient Adult Discharge Instructions [address] [address] Name: EMILY CHAPPELL : 1995 Visit: 05/17/2022 15:20:00 Current Date: 05/17/2022 21:42 Account: [id number] Inpatient Adult Discharge Instructions We would like [...] and their families. Surveys are administered by [employer] ?? If further treatment with your primary care physician or another doctor is recommended, it is important for you to keep the appointment. Call your primary care physician or return to the Emergency Department immediately if your condition worsens, fails to improve, or new symptoms develop. If you need to find a doctor, you can call [facility] for a referral at [phone] or toll free at [phone] or log in to [email or web address].. ?? You can view and manage your care through the patient portal or by using a health care serg of your choosing. [employer] is a website that allows you to securely view your medical information including your hospital discharge summary, office visit summaries, medications and follow-up visits. You can also request appointments, renew medications, and request access to your medical information using a health care serg of your choosing, or just ask a question. You can enroll at [email or web address] or register during your next office visit. You have been discharged from [facility], Patient Care Unit: [id number]. If you have any questions regarding these instructions after you leave, please call us and we will be happy to assist you. [facility] Your Care Team Attending Physician Deven Betancur MD Tests Performed Below is a partial list of the tests performed during your hospitalization. You may have had other tests and procedures not included in this list. Please discuss all test results with your provider. Beta HCG Serum (Females Only) CBC Type and Screen US Uterus Transvaginal Primary Care Provider Abner Nowak MD , Kasey Advance Directive Health Care Proxy on File No Patient has a Designated Caregiver: No Studies Pending All tests and labs ordered during this hospital stay have been completed unless listed below. Please discuss all pending results with your provider listed above in these instructions. ?? No incomplete studies found What to do next Instructions From Your Doctor Discharge Orders Scheduled Follow-Up Appointments Sunday 10:00 AM EST ?? Where: [facility] [address] [place] [address]- You Need to Schedule the Following Appointments Follow Up with??[facility] [phone] When?? Why: as scheduled Call above number for any concerns or issues Where: Discharge Medications EMILY VEGA :1995 Visit Date:05/17/2022 Medications: Please continue your medications until treatment is completed or stopped by your provider. Medications not listed below should be discontinued. Discuss any questions related to medications with your provider. What How Much When Instructions Next Dose New Acetaminophen (Tylenol Extra Strength 500 mg oral tablet) 2 tab(s) Oral Every 4 hours as needed for for fever Pickup at [facility] 3 New Ibuprofen (ibuprofen 800 mg oral tablet) 1 tab(s) Oral 3 times a day as needed for for pain Pickup at [place] [address] New Misoprostol (miSOPROStol 200 mcg oral tablet) See instructions Refills: 1 Place 2 tabs between cheek and gums on EACH side, let dissolve for 30 min then swallow the rest with water ?? Pickup at [facility] 3 New Ondansetron (ondansetron 4 mg oral tablet) 1 tab(s) Oral Every 8 hours as needed for Nausea & Vomiting Pickup at [place] [address] Unchanged Azathioprine Daily Unchanged Folic Acid (folic acid 1 mg oral tablet) 1 tab(s) Oral Daily Unchanged Hydroxychloroquine (hydroxychloroquine 200 mg oral tablet) 1 tab(s) Oral Daily Unchanged Methotrexate (Methotrexate Tablet) Oral Unchanged PredniSONE Oral Daily Pharmacy Information [facility] 3: [address], [place] [id number] [phone] Test Results Below is a partial list of the most recent Laboratory test results done prior to this discharge. You may have had other tests and procedures not included in this list. Please discuss all test resultswith your provider. Beta HCG Serum (Females Only) (05/17/2022) ???Blood - 3228 mIU/mL CBC (05/17/2022) ???WBC - 7.3 k/mm3???RBC - 3.85 m/mm3???Hgb - 11.7 Gm/dL???Hct - 35.4 %???MCV - 91.9 femtoliters???MCH - 30.4 pg???MCHC - 33.1 g/dL???Platelet Count - 240 k/mm3???RDW-SD - 43.0 femtoliters???MPV - 10.3 femtoliters???Nucleated RBC (Automated) - 0.0 #/100 WBC'S???Abs. NRBC - 0.0 k/mm3 Type and Screen (05/17/2022) ???Blood Type - O Positive???Antibody Screen - Negative Allergies (NKA means No Known Allergies) NKA Problems Active Problems??(2) Dermatomyositis? Education Materials Below is the list of Educational Leaflet Providered with your Discharge Instructions. Misoprostol Oral Tablet?? Discharge Instructions for Miscarriage?? Understanding Miscarriage: Recovery?? Understanding Miscarriage: Emotions?? Missed Miscarriage?? Valuables and Belongings I fully understand and agree that [facility] accepts no responsibility for all my personal [...] are strongly encouraged to quit. Please call [facility] at [phone] or [phone]) or log in to [email or web address] for referrals to smoking cessation programs. ?? The National Suicide Prevention Hotline is available 08/01 if you or someone you know needs to find a reason to keep living. By calling 6-304-593-talk (7549) you'll be connected to a skilled, trained counselor at a crisis center in your area. INPATIENT DISCHARGE INSTRUCTIONS SIGNATURE PAGE EMILY VEGA [facility]:[id number] Location:[facility] Registration Date and Time:05/17/2022 15:20 EST Primary Care Physician: Abner Nowak MD , Glenda Cox, I LARISSA GAMINODEZ EMILY, have received the above patient education materials/instructions and have verbalized understanding. If ambulance or transport services are being used I further acknowledge being given a choice of service. ?? If you need to contact me, please call me at this number: . Patient/Accounting Officer Name: Patient/Accounting Officer Signature: Relationship to Patient: Witness Name/Signature: Date: * Tangela Julian RN T: PERFORM Event Display: Patient Education Leaflets Authored Date: [id number] Misoprostol Oral Tablet ?? 75903-713 Misoprostol Oral Tablet Brands: Cytotec Uses This medicine is used for the following purposes: ??? labor contraction ??? end a ??? bleeding after childbirth ??? ulcers in stomach or intestines ??? ulcers in stomach or intestines ?? Instructions Take the medicine with food. Store at room temperature away from heat, light, and moisture. Do not keep in the bathroom. Drink extra water while on this medicine. Adults should try to drink 6-8 cups (48 to 64 oz.) of water every day. Do not take with antacids containing magnesium. Tell your doctor and pharmacist about all your medicines. Include prescription and jmuf-odb-vdezvdyscuwjezpz, vitamins, and herbal medicines. Use effective control to avoid . ?? Cautions Tell your doctor and pharmacist if you ever had an allergic reaction to a medicine. Please check with your doctor before drinking alcohol while on this medicine. Tell the doctor or pharmacist if you are , planning to be , or . Do not use this medicine if you are . If you become while on this medicine, contact your doctor immediately. This medicine can cause defects. Speak with your doctor about control methods that should be used while on this medicine. This medicine can hurt a new baby in the womb. If you become while on this medicine, tell your doctor immediately. Your doctor may switch you to a different medicine. ?? Side Effects The following is a list of some common side effects from this medicine. Please speak with your doctor about what you should do if you experience these or other side effects. ??? abdominal cramps ??? diarrhea ??? nausea ??? stomach upset or abdominal pain Call your doctor or get medical help right away if you notice any of these more serious side effects: ??? changes in memory, mood, or thinking ??? confusion ??? dizziness ??? slow heartbeat ??? menstruation changes (missed or fewer periods) ??? miscarriage, premature , defects ??? mood changes ??? muscle weakness ??? urinating less often ??? cramping of the uterus or bleeding from the vagina ?? Extra Please speak with your doctor, nurse, or pharmacist if you have any questions about this medicine. ?? [email or web address] IMPORTANT NOTE: This document tells you briefly how to take your medicine, but it does not tell youall there is to know about it. Your doctor or pharmacist may give you other documents about your medicine. Please talk to them if you have any questions. Always follow their advice. There is a more complete description of this medicine available in Guatemalan. Scan this code on your smartphone or tablet or use the web address below. You can also ask your pharmacist for a printout. If you have any questions, please ask your pharmacist. The display and use of this drug information is subject to Terms of Use. Copyright(c) 2021 [employer]. ?? [employer]. All rights reserved. This information is not intended as a substitute for professional medical care. Always follow your healthcare professional's instructions. ?? * Eliel COTE, Tangela Friend: PERFORM Event Display: Patient Education Leaflets Authored Date: Discharge Instructions for Miscarriage ?? 90333 Discharge Instructions for Miscarriage You have had a miscarriage. This is the unplanned end of a before the baby can live outside the uterus. You may have??had a shock to your system, both physically and emotionally. Because ofthis,??you may not feel well for a few days. Your body is going through changes. And you can expectmood swings. Home care Suggestions for care at home include: ??? Return to your daily routines when you feel ready. This might be right away, or you may want to wait a few days. ??? Take showers instead of tub baths. This helps prevent infection. Ask your??healthcare provider??when you can take baths again. ??? Don't do any strenuous exercise right away, such as aerobics or running. Wait until the bleeding slows to therate of a normal period. ??? Don???t have sex, use tampons, or cleanse with a douche until your provider says it???s OK. ??? Get emotional support. Ask your provider about support groups in your area. It may be helpful to talk with others who have had a miscarriage. ?? Follow-up Make a follow-up appointment with your provider. ?? When to call your healthcare provider Call your??provider??right away if you have any of the following: ??? Fever of 100.4??F (38??C) or higher or as advised by your provider ??? Chills ??? Bright red vaginal bleeding or a smelly discharge ??? Vaginal bleeding that soaks more than 1 menstrual pad per hour ??? Belly pain that's severe or getting worse ?? Last Reviewed Date: 2021 ?? 4483-4741 [employer]. All rights reserved. This information is not intended as a substitute for professional medical care. Always follow your healthcare professional's instructions. ?? * Eliel COTE, Tangela T: PERFORM Event Display: Patient Education Leaflets Authored Date: [id number] Understanding Miscarriage: Recovery ?? 27660 Understanding Miscarriage: Recovery Your body has had a shock to its system. Because of this, you may not feel well for a few days. Your body is going through changes, and you can expect mood swings. When you are ready, start back to your normal routine. Mood swings The miscarriage has caused a sudden drop in your hormone levels. This is likely to produce mood swings or make your emotions even more extreme. Stress and lack of sleep can also affect your moods. Asyour body returns to normal, these mood swings should lessen. ?? Returning to your daily routines You are the best criminal judge of how you feel. Do only as much as you feel up to. Also be sure to follow your healthcare provider???s instructions. Keep the following in mind: ??? Return to work or your daily routines when you feel ready. This might be right away, or you may want to wait a few days. ??? Take showers instead of tub baths. This helps prevent infection. Your??healthcare provider will tell you when you can take baths again. ??? Don't do strenuous exercise, such as aerobics or running, until the bleeding slows to the rate of a normal period. ??? Wait to have sex, and don???t use tampons until your??healthcare provider says it is OK. ??? Do not douche. ?? Finding support Recognize your need to talk. Ask for support when you want it, and accept help when it???s offered.Although sharing thoughts with your partner is vital, you may also feel like talking with other family members or friends. ?? Look nearby The real experts on miscarriage are the women who have gone through it. Because miscarriage is so common, it???s likely that someone close to you has had one. You may begin to see that you???re not alone in experiencing such a loss. ?? Other sources of support Many women find it easier to talk to people who are not family or friends. If this is true for you,try contacting the following: ??? Share: and Infant Loss Support at www.nationalshare.org??? Resolve Through Sharing at www.bereavementservices.org ??? Loss Support Program at www .pregnancyloss.org ?? When to call the healthcare provider It???s normal to be sad for a while. You may even feel ???down?? until you???re again. Besure to call your??healthcare provider if either of the following is true: ??? You continue to haveno interest in eating or are not able to sleep. ??? Your depression does not lessen or you get moreupset. ?? Last Reviewed Date: 2019 ?? 7136-3845 [employer]. All rights reserved. This information is not intended as a substitute for professional medical care. Always follow your healthcare professional's instructions. ?? US transvaginal for * BHSPowerscribe , CIS S: TRANSCPALLAVI Peña MD, Devrim: MNA Lopez MD, Sundar: SIGN Event Display: Result: Authored Date: [id number] US Uterus Transvaginal Reason: Bleeding; spotting @ 9w; Clinical Question(s): Other:; Order Comment: US Uterus Transvaginal Prep COMPARISON: 05/02/2022 TECHNIQUE: Transabdominal and transvaginal ultrasound with grayscale and color Doppler analysis. FINDINGS: Last menstrual period (LMP): 03/02/2022. Gestational age (GA) by LMP: 10w6d. UTERUS AND GESTATIONAL STRUCTURES: Normal gestational sac containing a yolk sac is identified within the endometrial cavity. No heart rate is appreciated. No cardiac activity is observed medially. Krebs-rump length (CRL): 2.3 cm. Ultrasound age of 8w4d. Uterus: Retroverted. 9.3 x 5.4 x 6.9 cm, volume 182.0 cc. No masses. No abnormalities of the cervix. RIGHT OVARY: Size: 3.7 x 1.0 x 1.8 cm, volume 3.7 cc. Morphology: Normal echotexture. No pathologic cysts or mass. Normal color Doppler appearance. LEFT OVARY: Size: 3.1 x 2.2 x 2.0 cm, volume 7.1 cc. Morphology: Normal echotexture. There is a 0.8 x 0.6 x 0.4 cm echogenic focus in the left ovary with minimal internal vascularity. Normal color Doppler appearance. FREE FLUID: Mild free fluid in bilateral adnexae. IMPRESSION: 1. No heart rate or cardiac activity in a fetus with ultrasound age of 8w4d. Estimated gestational age by ultrasound is discordant with estimated age by clinical parameters. 2. Subcentimeter echogenic focus with mild internal vascularity in the left ovary could represent an involuting corpus luteum cyst or a fat-containing lesion. Follow-up with ultrasound in 6-8 weeks should be considered. I have personally reviewed the images and I agree with this report. WSN: [id number] Ordering Physician: Kimberlee Padilla Dictated By: Sundar Lopez MD Dictated Date/Time: 05/17/22 6:49 pm Reviewed By: Maria G Peña MD Signed By: Maria G Peña MD Signed Date/Time: 05/17/22 6:54 pm Transcribed By: SMITH Transcribed Date/Time: 05/17/22 6:41 pm Patient Care team information Care Team Personnel Name: Abner Nowak MD , Kasey Position: Reference Physician Member Role: PCP Address: Address: [address] [place] [address]- Name: Eliel RN, Tangela Friend Position: S OB RN Member Role: Patient Care Provider Care Team Related Persons Name: CHAPPELLJOHANNYEDDIE Address: home [address] [place] [address] Name: EDUARDA LEBLANC
--- OUTSIDE RECORDS SUMMARY | 2024-02-19 09:19 | XMS_ITS | Continuity of Care Document ---
Author Organization [facility] Address [address] [place] [address]- Care Team Providers Care Coil Taper Name Role Phone Abner Nowak MD, Glenda Cox Primary Care Physician Encounter [facility] Date(s): 04/24/22 - 05/24/[address] [address]- Allergies, Adverse Reactions, Alerts No Known Allergies [...] 05/17/22 20:48:00 EST, Route to Pharmacy Electronically, [facility], Partial fill upon patient [...] tablet, 1 Refills, Maintenance, 05/17/22 20:48:00 EST, [facility], Partial fill upon patient request if the... Start Date: 05/17/22 Status: Ordered miSOPROStol 200 mcg oral tablet See Instructions, place 2 tabs between each cheek for 30 min then swallow the rest., # 4 tablet, 1 Refills, Maintenance, 05/18/22 19:15:00 EST, [id number], Partial fill upon patient request if the prescription is for a schedule II opioid drug.... Start Date: 05/18/22 Status: Ordered ondansetron 4 mg oral tablet 1 tablet = 4 mg, By Mouth, Every 8 hours, PRN Nausea & Vomiting, # 10 tablet, 0 Refills, Maintenance, 05/17/22 20:48:00 EST, Tablet, [facility], Partial fill upon patient [...] 0 Refills, Maintenance, 05/19/22 9:13:00 EST, Tablet, [id number], Partial fill upon patient request if the prescription is for a schedule II opioid drug., 155, cm,... Start Date: 05/19/22 Status: Ordered Problem List Condition Confirmation Course Effective Dates Status Health St atus Informant Dermatomyositis Confirmed Active Patient Care team information Care Team Personnel Name: Abner Nowak MD , Glenda Cox Position: Reference Physician Member Role: PCP Address: Address: [address] [place] [address]- Care Team Related Persons Name: EDDIE CHAPPELL Address: home [address] [place] [address] Name: EDUARDA LEBLANC
--- OUTSIDE RECORDS SUMMARY | 2024-02-19 09:19 | XMS_ITS | Continuity of Care Document ---
Author Organization [facility] Address [address] [place] [address]- Care Team Providers Care Crisis Nurse Name Role Phone Abner Nowak MD, Glenda Cox Primary Care Physician [phone] Encounter [facility] Date(s): 02/28/23 - 03/30/[address] [address]- Allergies, Adverse Reactions, Alerts No Known Allergies Immunizations Given and Recorded Vaccine Date Status Refusal Reason tetanus/diphtheria/pertussis, acel(Tdap) 01/23/23 Given Medications acetaminophen 325 mg oral capsule 2 capsule = 650 mg, By Mouth, Every 4 hours, PRN as needed for pain, # 50 tablet, 0 Refills, Maintenance, 03/18/23 18:42:00 EDT, Capsule, [facility]/pharmacy #[id number], Partial fill upon patient request [...] 11:26:00 EDT, Route to Pharmacy Electronically, [facility]/pharmacy #[id number], Partial fill upon patient request if the prescriptio... Start Date: 02/06/23 Status: Ordered ferrous sulfate 325 mg oral enteric coated tablet See Instructions, Take one tablet By Mouth every other day., # 45 tablet, Refills 7, Tot. Refills 7, Maintenance, 12/26/22 9:02:00 EDT, Instructions Replace Required Details, Route to Pharmacy Electronically, [facility]/pharmacy #[id number], Partial fill upon charlene... Start Date: 12/26/22 Status: Ordered folic acid 1 mg oral tablet 1 mg, 1, tablet, By Mouth, Daily, # 90 tablet, Refills 2, Tot. Refills 2, Maintenance, 12/22/22 11:26:00 EDT, Route to Pharmacy Electronically, [facility]/pharmacy #[id number], Partial fill upon patient request [...] 18:42:00 EDT, Route to Pharmacy Electronically, [facility]/pharmacy #[id number], Partial fill upon patientrequest if the prescription is for a schedule II op... Start Date: 03/18/23 Status: Ordered MiraLax oral powder for reconstitution = 17 Gm, By Mouth, Daily, dissolve in water before taking, # 255 Gm, 0 Refills, Maintenance, 02/06/23 11:26:00 EDT, REC Powder, [facility]/pharmacy #[id number], Partial fill upon patient request [...] 18:42:00 EDT, Route to Pharmacy Electronically, [facility]/pharmacy #[id number], Partial fill upon patient request [...] 03/06/23 11:44:00 EDT, Route to Pharmacy Electronically, [facility]/pharmacy #[id number] Tablet,Partial fill upon patient request if [...] 0 Refills, Maintenance, 02/08/23 16:07:00 EDT, Tablet, [facility]/pharmacy #[id number], Partial fill upon patient request [...] Physician Member Role: PCP Address: Address: [address] Care Team Related Persons Name: EDDIE CHAPPELL Address: home [address] [place] [address] Name: EDUARDA LEBLANC Name: DUSTY COOPER Address: [address] Address: home [address]
--- OUTSIDE RECORDS SUMMARY | 2024-02-19 09:19 | XMS_ITS | Continuity of Care Document ---
Author Organization [facility] Address [address] [place] [address]- Care Team Providers Care Well Service Derrick Worker Name Role Phone Abner Nowak MD, Glenda Cox Primary Care Physician Encounter [facility] Date(s): 08/27/20 - 12/16/20 [facility] [address] [place] [address] Attending Physician: Wayne Gilmore MD Admitting Physician: Wayne Gilmore MD Referring Physician: Iain DAVIS, Matthew Allergies, Adverse Reactions, Alerts Substance Reaction Severity Status NKA Active Medications folic acid 1 mg oral tablet [...]
--- OUTSIDE RECORDS SUMMARY | 2024-02-19 09:19 | XMS_ITS | Continuity of Care Document ---
Author Organization [facility] ter Address [address] [place] [address]- Care Team Providers Care Conveyor Line Battery Charger Name Role Phone Abner Nowak MD, Kasey Primary Care Physician Encounter [facility] Date(s): 11/18/22 - 12/28/[address] [address] Attending Physician: Iain DAVIS, Matthew Admitting Physician: Iain DAVIS, Matthew Referring Physician: Iain DAVIS, Matthew Allergies, Adverse Reactions, Alerts No Known Allergies Medications aspirin 81 mg oral delayed release tablet 162 mg, 2, tablet, By Mouth, Daily at bedtime, # 90 tablet, Refills 4, Tot. Refills 4, Maintenance,11/21/22 10:15:00 EDT, [facility]acy [facility], [facility] Replace Required Details, Route to Pharmacy Electronically, [facility]/pharmacy #[id number], Partial fill upon charlene... Start Date: 12/26/22 Status: Ordered folic acid 1 mg oral tablet 1 mg, 1, tablet, By Mouth, Daily, # 90 tablet, Refills 2, Tot. Refills 2, Maintenance, 12/22/22 11:26:00 EDT, [facility] Pharmacy Electronically, [facility] tablet, 0 Refills, Maintenance, 11/23/22 15:58:00 EDT, [facility]/pharmacy #[id number], Partial fill upon [...] 05/19/22 9:13:00 EST, Tablet, [facility]/pharmacy #[id number], Partial fill upon patient request if the [...] Physician Member Role: PCP Address: Address: [address] [place] [address]- Care Team Related Persons Name: EDDIE CHAPPELL Address: home [address] [place] [address] Name: EDUARDA LEBLANC
--- OUTSIDE RECORDS SUMMARY | 2024-02-19 09:19 | XMS_ITS | Continuity of Care Document ---
Author Organization [facility] Address [address] [place] [address]- Care Team Providers Care High School Learning Support Teacher Name Role Phone Not on Staff, PCP Primary Care Physician Unavail able Encounter [facility] Date(s): 06/26/19 - 07/06/19 [facility] [address] [place] [address]- [facility] Attending Physician: Keyana Simons Admitting Physician: Keyana Simons Referring Physician: Keyana Simons
--- OUTSIDE RECORDS SUMMARY | 2024-02-19 09:19 | XMS_ITS | Continuity of Care Document ---
Author Organization [facility] ter Address [address] [place] [address]- Care Team Providers Care Upper And Bottom Lacer Hand Name Role Phone Caprice Padgett Primary Care Physician [phone] Encounter [facility] Date(s): 05/25/20 - 06/30/[address] [address]- Attending Physician: Matthew Timmons MD Admitting Physician: Matthew Timmons MD Referring Physician: Matthew Timmons MD
--- OUTSIDE RECORDS SUMMARY | 2024-02-19 09:19 | XMS_ITS | Continuity of Care Document ---
Author Organization [facility] ter Address [address] [place] [address]- Care Team Providers Care Investor Relations Director Name Role Phone Abner Nowak MD, Nelsy Cox Primary Care Physician Encounter [facility] Date(s): 06/24/20 - 07/25/[address] [address] Attending Physician: Matthew Timmons MD Admitting Physician: Matthew Timmons MD Referring Physician: Matthew Timmons MD
--- OUTSIDE RECORDS SUMMARY | 2024-02-19 09:19 | XMS_ITS | Continuity of Care Document ---
Author Organization [facility] Address [address] [place] [address]- Care Team Providers Care Laser Set Up Operator Name Role Phone Abner Nowak MD, Glenda Cox Primary Care Physician [id number] Date(s): 11/23/22 - 12/29/[address] [address]- Attending Physician: Feliicty Lentz MD Admitting Physician: Felicity Lentz MD Referring Physician: Noreen Ribera CNM Allergies, Adverse Reactions, Alerts No Known Allergies Medications aspirin 81 mg oral delayed release tablet 162 mg, 2, tablet, By Mouth, Daily at bedtime, # 90 tablet, Refills 4, Tot. Refills 4, Maintenance,11/21/22 10:15:00 EDT, Route to Pharmacy Electronically, [facility]/pharmacy #[id number], Partial fill upon patient [...] Replace Required Details, Route to Pharmacy Electronically, [facility]/pharmacy #[id number], Partial fill upon charlene... Start Date: 12/26/22 Status: Ordered folic acid 1 mg oral tablet 1 mg, 1, tablet, By Mouth, Daily, # 90 tablet, Refills 2, Tot. Refills 2, Maintenance, 12/22/22 11:26:00 EDT, Route to Pharmacy Electronically, [facility]/pharmacy #[id number], Partial fill upon patient request if the [...] tablet, 0 Refills, Maintenance, 11/23/22 15:58:00 EDT, [facility]/pharmacy #[id number], Partial fill upon patient [...] 0 Refills, Maintenance, 05/19/22 9:13:00 EST, Tablet, [facility]/pharmacy #[id number], Partial fill upon patient request if the [...] Physician Member Role: PCP Address: Address: [address] [place] [address]- Care Team Related Persons Name: CHAPPELLEDDIE Chawla Address: home [address] [place] [address] Name: EDUARDA LEBLANC
--- OUTSIDE RECORDS SUMMARY | 2024-02-19 09:19 | XMS_ITS | Continuity of Care Document ---
Author Organization [facility] Address [address] [place] [address] [address] [place] [address]- Care Team Providers Care Wildlife Biologist Name Role Phone Glenda Marinelli MD Primary Care Physician [id number] Date(s): 03/08/22 - 04/09/[address] [place] [address]- [place] Attending Physician: Vasquez Marcial MD Referring Physician: Iain DAVIS, Matthew Allergies, [...] Date: 11/12/20 Status: Ordered Problem List Condition Confirmation Course Effective Dates Status Health St atus Informant Dermatomyositis Confirmed Active Patient Care team information Personnel Name: Glenda Marinelli MD Address: Address: [address] [place] [address]-
--- OUTSIDE RECORDS SUMMARY | 2024-02-19 09:19 | XMS_ITS | Continuity of Care Document ---
Author Organization [facility] Address [address] [place] [address]- Care Team Providers Care Disaster Or Damage Control Specialist Name Role Phone Abner Nowak MD, Glenda Cox Primary Care Physician [id number] Date(s): 03/20/23 - 04/19/[address] [address] Allergies, Adverse Reactions, Alerts No Known Allergies Immunizations Given and Recorded Vaccine Date Status Refusal Reason tetanus/diphtheria/pertussis, acel(Tdap) 01/23/23 Given Medications acetaminophen 325 mg oral capsule 2 capsule = 650 mg, By Mouth, Every 4 hours, PRN as needed for pain, # 50 tablet, 0 Refills, Maintenance, 03/18/23 18:42:00 EDT, Capsule, [facility]/pharmacy #[id number], Partial fill upon patient request if the prescription is for a schedule II opioid drug., 155,... Start Date: 03/18/23 Status: Ordered aspirin 81 mg oral delayed release tablet 162 mg, 2, tablet, By Mouth, Daily at bedtime, # 90 tablet, Refills 4, Tot. Refills 4, Maintenance,11/21/22 10:15:00 EDT, Route to Pharmacy Electronically, [facility]/pharmacy #[id number], Partial fill upon patient [...] 02/06/23 11:26:00 EDT, Route to Pharmacy Electronically, [facility]/pharmacy #[id number], Partial fill upon patient request if the prescriptio... Start Date: 02/06/23 Status: Ordered ferrous sulfate 325 mg oral enteric coated tablet See Instructions, Take one tablet By Mouth every other day., # 45 tablet, Refills 7, Tot. Refills 7, Maintenance, 12/26/22 9:02:00 EDT, Instructions Replace Required Details, Route to Pharmacy Electronically, [facility]/pharmacy #[id number], Partial fill upon charlene... Start Date: 12/26/22 Status: Ordered folic acid 1 mg oral tablet 1 mg, 1, tablet, By Mouth, Daily, # 90 tablet, Refills 2, Tot. Refills 2, Maintenance, 12/22/22 11:26:00 EDT, Route to Pharmacy Electronically, [facility]/pharmacy #[id number], Partial fill upon patient [...] 03/18/23 18:42:00 EDT, Route to Pharmacy Electronically, [facility]/pharmacy #[id number], Partial fill upon patientrequest if the [...] Refills, Maintenance, 03/20/23 15:44:00 EDT, ER Tablet, [facility]/pharmacy #[id number], Partial fill upon patient request if the prescription is for a schedule II opioid drug., 155, cm, 03/18/23 17:03:00 EDT, Heig... Start Date: 03/20/23 Status: Ordered oxyCODONE 5 mg oral tablet 10 mg, 2, tablet, By Mouth, Every 6 hours, PRN, # 12 tablet, Refills 0, Tot. Refills 0, Maintenance, for pain, 03/18/23 18:42:00 EDT, Route to Pharmacy Electronically, [facility]/pharmacy #[id number], Partial fill upon patient [...] 03/06/23 11:44:00 EDT, Route to Pharmacy Electronically, [facility]/pharmacy #[id number] Tablet,Partial fill upon patient request if the prescripti... Start Date: 03/06/23 Status: Ordered simethicone 125 mg oral tablet, chewable 1 tablet = 125 mg, Chew, 4 times a day, # 48 tablet, 0 Refills, Maintenance, 03/18/23 18:42:00 EDT,Chew Tablet, [facility]/pharmacy #[id number], Partial fill upon patient request if the prescription is for a schedule II opioid drug., 155, cm, 03/18/23 17:03:00 ED... Start Date: 03/18/23 Status: Ordered Tylenol Extra Strength 500 mg oral tablet 2 tablet = 1,000 mg, By Mouth, Every 6 hours, PRN Pain , Moderate, # 24 tablet, 0 Refills, Maintenance, 05/19/22 9:13:00 EST, Tablet, [facility]/pharmacy #[id number], Partial fill upon patient request if the prescription is for a schedule II opioid drug., 155, cm,... Start Date: 05/19/22 Status: Ordered Vitamin B12 250 mcg oral tablet 1 tablet = 250 mcg, By Mouth, Daily, # 30 tablet, 0 Refills, Maintenance, 02/08/23 16:07:00 EDT, Tablet, [facility]/pharmacy #[id number], Partial fill upon patient [...] PCP Address: Address: [address] [place] [address]- Care Team Related Persons Name: EDDIE CHAPPELL Address: home [address] [place], [place] Name: EDUARDA LEBLANC Name: DUSTY COOPER Address: [address] Address: home [address] [place] [address] [place]
--- OUTSIDE RECORDS SUMMARY | 2024-02-19 09:19 | XMS_ITS | Continuity of Care Document ---
Author Organization [facility] Address [address] [place] [address]- Care Team Providers Care Watch Crystal Cutter Name Role Phone Abner Nowak MD, Glenda Cox Primary Care Physician Encounter [facility] Date(s): 11/23/22 - 12/23/[address] [address]- Allergies, Adverse Reactions, Alerts No Known Allergies Medications aspirin 81 mg oral delayed release tablet 162 mg, 2, tablet, By Mouth, Daily at bedtime, # 90 tablet, Refills 4, Tot. Refills 4, Maintenance,11/21/22 10:15:00 EDT, Route to Pharmacy Electronically, [facility]/pharmacy #[id number], Partial fill upon patient [...] 12/22/22 11:26:00 EDT, Route to Pharmacy Electronically, [facility]/pharmacy #[id number], Partial fill upon patient [...] 0 Refills, Maintenance, 11/23/22 15:58:00 EDT, [facility]/pharmacy #[id number], Partial fill upon patient request if the [...] 0 Refills, Maintenance, 05/19/22 9:13:00 EST, Tablet, [facility]/pharmacy #[id number], Partial fill upon patient request if the [...] Physician Member Role: PCP Address: Address: [address] [place] [address]- Care Team Related Persons Name: TA EDDIE Address: home [address] [place] [address] Name: EDUARDA LEBLANC
--- OUTSIDE RECORDS SUMMARY | 2024-02-19 09:19 | XMS_ITS | Continuity of Care Document ---
Author Organization [facility] Address [address] [place] [address]- Care Team Providers Care Site Reliability Engineer Name Role Phone Abner Nowak MD, Kasey Primary Care Physician Encounter [facility] Date(s): 09/04/22 - 10/28/22 [facility] [address] [place] [address]- Attending Physician: Willa Wilson MD Admitting Physician: Willa Wilson MD Referring Physician: Iain DAVIS, Matthew Allergies, [...] 05/17/22 20:48:00 EST, Route to Pharmacy Electronically, [facility], Partial fill upon patient request if the prescription is... Start Date: 05/17/22 Status: Ordered ondansetron 4 mg oral tablet 1 tablet = 4 mg, By Mouth, Every 8 hours, PRN Nausea & Vomiting, # 10 tablet, 0 Refills, Maintenance, 05/17/22 20:48:00 EST, Tablet, [facility], Partial fill upon patient request ifthe [...] 0 Refills, Maintenance, 05/19/22 9:13:00 EST, Tablet, [facility]/pharmacy #[id number], Partial fill upon [...] Physician Member Role: PCP Address: Address: [address] [place] [address]- Care Team Related Persons Name: EDDIE CHAPPELL Address: home [address] [place] [address] Name: EDUARDA LEBLANC
--- OUTSIDE RECORDS SUMMARY | 2024-02-19 09:19 | XMS_ITS | Continuity of Care Document ---
Author Organization [facility] Address [address] [place] [address]- Care Team Providers Care Community Music Therapist Name Role Phone Abner Nowak MD, Glenda Cox Primary Care Physician Encounter [facility] Date(s): 05/17/22 - 06/16/22 [facility] [address] [place] [address] Allergies, Adverse Reactions, Alerts No [...] 05/17/22 20:48:00 EST, Route to Pharmacy Electronically, [facility], Partial fill upon patient [...] tablet, 1 Refills, Maintenance, 05/17/22 20:48:00 EST, [facility], Partial fill upon patient request if the... Start Date: 05/17/22 Status: Ordered miSOPROStol 200 mcg oral tablet See Instructions, place 2 tabs between each cheek for 30 min then swallow the rest., # 4 tablet, 1 Refills, Maintenance, 05/18/22 19:15:00 EST, [facility]/pharmacy #[id number], Partial fill upon patient request if the prescription is for a schedule II opioid drug.... Start Date: 05/18/22 Status: Ordered ondansetron 4 mg oral tablet 1 tablet = 4 mg, By Mouth, Every 8 hours, PRN Nausea & Vomiting, # 10 tablet, 0 Refills, Maintenance, 05/17/22 20:48:00 EST, Tablet, [facility], Partial fill upon patient [...] 0 Refills, Maintenance, 05/19/22 9:13:00 EST, Tablet, [facility]/pharmacy #[id number], Partial fill upon patient request if the prescription is for a schedule II opioid drug., 155, cm,... Start Date: 05/19/22 Status: Ordered Problem List Condition Confirmation Course Effective Dates Status Health St atus Informant Dermatomyositis Confirmed Active Patient Care team information Care Team Personnel Name: Abner Nowak MD , Glenda Cox Position: Reference Physician Member Role: PCP Address: Address: [address] [place] [address] Care Team Related Persons Name: TA EDDIE Address: home [address] [place] [address] Name: EDUARDA LEBLANC
--- OUTSIDE RECORDS SUMMARY | 2024-02-19 09:19 | XMS_ITS | Continuity of Care Document ---
Author Organization [facility] ter Address [address] [place] [address]- Care Team Providers Care Cementer Name Role Phone Abner Nowak MD, Gledna Cox Primary Care Physician [phone] Encounter [facility] Date(s): 05/23/22 - 05/30/[address] [address]- Encounter Diagnosis 10 weeks gestation of (Final) - Discharge Disposition: A-D/C Home Attending Physician: Bharath Schultz MD Admitting Physician: Bharath Schultz MD Allergies, Adverse Reactions, Alerts No Known [...] 05/17/22 20:48:00 EST, Route to Pharmacy Electronically, [facility], Partial fill upon patient [...] tablet, 1 Refills, Maintenance, 05/17/22 20:48:00 EST, [facility], Partial fill upon patient request if the... Start Date: 05/17/22 Status: Ordered miSOPROStol 200 mcg oral tablet See Instructions, place 2 tabs between each cheek for 30 min then swallow the rest., # 4 tablet, 1 Refills, Maintenance, 05/18/22 19:15:00 EST, [facility]/pharmacy #[id number], Partial fill upon patient request if the prescription is for a schedule II opioid drug.... Start Date: 05/18/22 Status: Ordered ondansetron 4 mg oral tablet 1 tablet = 4 mg, By Mouth, Every 8 hours, PRN Nausea & Vomiting, # 10 tablet, 0 Refills, Maintenance, 05/17/22 20:48:00 EST, Tablet, [facility], Partial fill upon patient [...] 0 Refills, Maintenance, 05/19/22 9:13:00 EST, Tablet, [facility]/pharmacy #[id number], Partial fill upon patient request if the prescription is for a schedule II opioid drug., 155, cm,... Start Date: 05/19/22 Status: Ordered Problem List Condition Confirmation Course Effective Dates Status Health St atus Informant Dermatomyositis Confirmed Active Vital Signs Most recent to oldest [Reference Range]: 1 Weight 75.2 kg (05/23/22 5:08 PM) Oxygen Saturation [94-100 %] 100 % (05/23/22 5:08 PM) Pulse Rate [55-90 bpm] 93 bpm *H* (05/23/22 5:08 PM) Blood Pressure [90-138/55-84 mm Hg] 126/ 76mm Hg (05/23/22 5:08 PM) Respiratory Rate [16-30 br/min] 16 br/mi n (05/23/22 5:08 PM) Temperature [96.8-100.4 DegF] 98.2 DegF (05/23/22 5:08 PM) Blood pressure sites Arm, left (05/23/22 5:08 PM) Temperature Route Oral (05/23/22 5:08 PM) Weight Obtained Via Standing scale (05/23/22 5:08 PM) Patient Care team information Care Team Personnel Name: Abner Nowak MD , Glenda Cox Position: Reference Physician Member Role: PCP Address: Address: [address] [place] [address]- Name: Norah Burton RN Position: S OB RN Member Role: Patient Care Provider Care Team Related Persons Name: EDDIE CHAPPELL Address: home [address] [place] [address] Name: EDUARDA LEBLANC
--- OUTSIDE RECORDS SUMMARY | 2024-02-19 09:19 | XMS_ITS | Continuity of Care Document ---
Author Organization [facility] Address [address] [place] [address]- Care Team Providers Care Precision Assembly Inspector Name Role Phone Abner Nowak MD, Glenda Cox Primary [id number] Date(s): 06/26/23 - 07/26/[address] [address] Allergies, Adverse Reactions, Alerts No Known Allergies Immunizations Given and Recorded Vaccine Date Status Refusal Reason tetanus/diphtheria/pertussis, acel(Tdap) 01/23/23 Given Medications acetaminophen 325 mg oral capsule 2 capsule = 650 mg, By Mouth, Every 4 hours, PRN as needed for pain, # 50 tablet, 0 Refills, Maintenance, 03/18/23 18:42:00 EDT, Capsule, [facility]/pharmacy #[id number], Partial fill upon patient request if the prescription is for a schedule II opioid drug., 155,... Start Date: 03/18/23 Status: Ordered aspirin 81 mg oral delayed release tablet 162 mg, 2, tablet, By Mouth, Daily at bedtime, # 90 tablet, Refills 4, Tot. Refills 4, Maintenance,11/21/22 10:15:00 EDT, Route to Pharmacy Electronically, [facility]/pharmacy #[id number], Partial fill upon patient [...] 02/06/23 11:26:00 EDT, Route to Pharmacy Electronically, [facility]/pharmacy #[id number], Partial fill upon patient request if the prescriptio... Start Date: 02/06/23 Status: Ordered ferrous sulfate 325 mg oral enteric coated tablet See Instructions, Take one tablet By Mouth every other day., # 45 tablet, Refills 7, Tot. Refills 7, Maintenance, 12/26/22 9:02:00 EDT, Instructions Replace Required Details, Route to Pharmacy Electronically, [facility]/pharmacy #[id number], Partial fill upon charlene... Start Date: 12/26/22 Status: Ordered folic acid 1 mg oral tablet 1 mg, 1, tablet, By Mouth, Daily, # 90 tablet, Refills 2, Tot. Refills 2, Maintenance, 12/22/22 11:26:00 EDT, Route to Pharmacy Electronically, [facility]/pharmacy #[id number], Partial fill upon patient [...] 03/18/23 18:42:00 EDT, Route to Pharmacy Electronically, [facility]/pharmacy #[id number], Partial fill upon patientrequest [...] Refills, Maintenance, 03/20/23 15:44:00 EDT, ER Tablet, [facility]/pharmacy #[id number], Partial fill upon patient request if the prescription is for a schedule II opioid drug., 155, cm, 03/18/23 17:03:00 EDT, Heig... Start Date: 03/20/23 Status: Ordered oxyCODONE 5 mg oral tablet 10 mg, 2, tablet, By Mouth, Every 6 hours, PRN, # 12 tablet, Refills 0, Tot. Refills 0, Maintenance, for pain, 03/18/23 18:42:00 EDT, Route to Pharmacy Electronically, [facility]/pharmacy #[id number], Partial fill upon patient [...] 03/06/23 11:44:00 EDT, Route to Pharmacy Electronically, [facility]/pharmacy #[id number] Tablet,Partial fill upon patient request if the prescripti... Start Date: 03/06/23 Status: Ordered simethicone 125 mg oral tablet, chewable 1 tablet = 125 mg, Chew, 4 times a day, # 48 tablet, 0 Refills, Maintenance, 03/18/23 18:42:00 EDT,Chew Tablet, [facility]/pharmacy #[id number], Partial fill upon patient [...] Physician Member Role: PCP Address: Address: [address] [place] [address]- Care Team Related Persons Name: EDDIE CHAPPELL Address: home [address] [place] [address] Name: EDUARDA LEBLANC Name: DUSTY COOPER Address: [address] Address: home [address] [place] [address] [place]
--- OUTSIDE RECORDS SUMMARY | 2024-02-19 09:19 | XMS_ITS | Continuity of Care Document ---
Author Organization [facility] ter Address [address] [place] [id number]- Care Team Providers Care Substation Operator Automatic Name Role Phone Abner Nowak MD, Glenda Cox Primary Care Physician Encounter [facility] Date(s): 02/28/23 - 02/28/[address] [address]- Discharge Disposition: A-D/C Home Attending Physician: Ros Silva MD Admitting Physician: Ros Silva MD Referring Physician: Ros Silva MD Allergies, Adverse Reactions, Alerts No Known Allergies Immunizations Given and Recorded Vaccine Date Status Refusal Reason tetanus/diphtheria/pertussis, acel(Tdap) 01/23/23 Given Medications aspirin 81 mg oral delayed release tablet 162 mg, 2, tablet, By Mouth, Daily at bedtime, # 90 tablet, Refills 4, Tot. Refills 4, Maintenance,11/21/22 10:15:00 EDT, Route to Pharmacy Electronically, [facility]/pharmacy #[id number], Partial fill upon patient request if the [...] 11:26:00 EDT, Route to Pharmacy Electronically, [facility]/pharmacy #[id number], Partial fill upon patient request if the prescriptio... Start Date: 02/06/23 Status: Ordered ferrous sulfate 325 mg oral enteric coated tablet See Instructions, Take one tablet By Mouth every other day., # 45 tablet, Refills 7, Tot. Refills 7, Maintenance, 12/26/22 9:02:00 EDT, Instructions Replace Required Details, Route to Pharmacy Electronically, [facility]/pharmacy #[id number], Partial fill upon charlene... Start Date: 12/26/22 Status: Ordered folic acid 1 mg oral tablet 1 mg, 1, tablet, By Mouth, Daily, # 90 tablet, Refills 2, Tot. Refills 2, Maintenance, 12/22/22 11:26:00 EDT, Route to Pharmacy Electronically, [facility]/pharmacy #[id number], Partial fill upon patient request if [...] 23:15:00 EDT, 02/25/23 23:15:00 EDT, Tablet, [facility]/pharmacy #[id number], Partial fill upon patient request if the prescription is for a schedule II opioid drug., 1... Start Date: 02/25/23 Stop Date: 03/02/23 Status: Ordered MiraLax oral powder for reconstitution = 17 Gm, By Mouth, Daily, dissolve in water before taking, # 255 Gm, 0 Refills, Maintenance, 02/06/23 11:26:00 EDT, REC Powder, [facility]/pharmacy #[id number], Partial fill upon patient request if [...] Refills, Maintenance, 05/19/22 9:13:00 EST, Tablet, [facility]/pharmacy #[id number], Partial fill upon patient request if the prescription is for a schedule II opioid drug., 155, cm,... Start Date: 05/19/22 Status: Ordered Vitamin B12 250 mcg oral tablet 1 tablet = 250 mcg, By Mouth, Daily, # 30 tablet, 0 Refills, Maintenance, 02/08/23 16:07:00 EDT, Tablet, [facility]/pharmacy #[id number], Partial fill upon patient request if [...] recent to oldest [Reference Range]: 1 Weight 84 kg (02/28/23 11:28 AM) Oxygen Saturation [94-100 %] 99 % (02/28/23 11:55 AM) Blood Pressure [90-138/55-84 mm Hg] 131/ 73mm Hg (02/28/23 11:55 AM) Temperature [96.8-100.4 DegF] 98.6 DegF (02/28/23 11:28 AM) Blood pressure sites Arm, left (02/28/23 11:55 AM) Temperature Route Oral (02/28/23 11:28 AM) Dry Weight 84 kg (02/28/23 11:28 AM) Weight Obtained Via Standing scale (02/28/23 11:28 AM) Dry Weight Obtained Via Standing scale (02/28/23 11:28 AM) Social History Social History Type Response Smoking Status Never (less than 100 in lifetime) entered on: 3/23/23 Sex Female Note * Magdalena Mcdonough RN: PERFORM Event Display: Discharge/Transfer Note Hospital Authored Date: [id number] Nursing Discharge Note Entered On: 02/28/2023 15:18 EDT Performed On: 02/28/2023 15:17 EDT by Magdalena Mcdonough RN Nursing Discharge Note 2 Discharge Time : 02/28/2023 15:17 EDT Discharge Level of Care at Discharge : Home/Senior Living/Foster Care Patient Left Unit Via : Ambulatory Patient Accompanied Off Unit with : Significant other DC Instructions Provided & Signed by Pt : Yes Patient Understands D/C Instructions : Yes Patient Instructions Discharge Signed : Yes Did Pt have Specialty Bed or Wound Vac : No Magdalena Mcdonough RN - 02/28/2023 15:17 EDT * Ricci De La Cruz RN: PERFORM Event Display: Patient Education/Instruction Authored Date: [id number] Inpatient Adult Discharge Instructions [address] [address] Name: EMILY CHAPPELL : 1995 Visit: 02/28/2023 11:19:00 Current Date: 02/28/2023 15:07 Account: [id number] Inpatient Adult Discharge Instructions We would like [...] and their families. Surveys are administered by [employer] ?? If further treatment with your primary care physician or another doctor is recommended, it is important for you to keep the appointment. Call your primary care physician or return to the Emergency Department immediately if your condition worsens, fails to improve, or new symptoms develop. If you need to find a doctor, you can call [facility] [employer] [facility] for a referral at [phone] or toll free at [phone] ([phone]) or log in to [email or web address].. ?? [facility], in keeping with [facility] guidance, no longer requires face [...] a health care serg of your choosing. [employer] is a website that allows you to securely view your medical information including your hospital discharge summary, office visit summaries, medications and follow-up visits. You can also request appointments, renew medications, and request access to your medical information using a health care serg of your choosing, or just ask a question. You can enroll at [email or web address] or register during your next office visit. You have been discharged from [facility], Patient Care Unit: [id number]. If you have any questions regarding these instructions after you leave, please call us and we will be happy to assist you. [facility] Your Care Team Attending Physician Ricardo DAVIS, Ros Munson Tests Performed Below is a partial list of the tests performed during your hospitalization. You may have had other tests and procedures not included in this list. Please discuss all test results with your provider. B12 Vitamin Level CBC Ferritin Iron + Iron Binding Capacity Reticulocyte Ct Primary Care Provider Abner Nowak MD , Glenda Cox Advance Directive Health Care Proxy on File No Discharge Vitals Temperature: 98.6 DegF Weight: 84 kg Systolic Blood Pressure: 131 mm Hg ?? Diastolic Blood Pressure: 73 mm Hg ?? Oxygen Saturation: 99 % ?? Studies Pending All tests and labs ordered during this hospital stay have been completed unless listed below. Please discuss all pending results with your provider listed above in these instructions. ?? No incomplete studies found What to do next Instructions From Your Doctor Discharge Orders Scheduled Follow-Up Appointments Sunday 11:20 AM EDT ?? Where: [facility] [address] [place] [address]- Status: Pending Sunday 11:20 AM EDT ?? Where: [address] [address]- Status: Pending Sunday 11:20 AM EDT ?? Where: [address] [address]- Status: Pending Sunday 11:20 AM EDT ?? Where: [address] [address]- Status: Pending Sunday 11:30 AM EDT ?? Where: [facility] Status: Pending Sunday 11:20 AM EDT ?? Where: [address] [address]- Status: Pending Discharge Medications EMILY VEGA :1995 Visit Date:02/28/2023 Medications: Please continue your medications until treatment is completed or stopped by your provider. Medications not listed below should be discontinued. Discuss any questions related to medications with your provider. What How Much When Instructions Next Dose Unchanged Acetaminophen (Tylenol Extra Strength 500 mg [...] Daily Take 1.5 tablets daily ?? Unchanged Metronidazole (metroNIDAZOLE 500 mg oral tablet) 1 tab(s) Oral Every 12 hours Duration: 5 Days Unchanged Multivitamin, (PNV ) Oral Daily Unchanged Polyethylene Glycol 3350 (MiraLax oral powder for reconstitution) 17 gram Oral Daily dissolve in water before taking ?? Test Results Below is a partial list of the most recent Laboratory test results done prior to this discharge. You may have had other tests and procedures not included in this list. Please discuss all test resultswith your provider. B12 Vitamin Level (02/28/2023) ???Vitamin B12 Level - 163 pg/mL CBC (02/28/2023) ???WBC - 6.3 k/mm3???RBC - 3.40 m/mm3???Hgb - 9.3 Gm/dL???Hct - 29.2 %???MCV - 85.9 femtoliters???MCH - 27.4 pg???MCHC - 31.8 g/dL???Platelet Count - 208 k/mm3???RDW-SD - 47.4 femtoliters???MPV - 11.2 femtoliters???Nucleated RBC (Automated) - 0.0 #/100 WBC'S???Abs. NRBC - 0.0 k/mm3 Ferritin (02/28/2023) ???Ferritin Level - 18 ng/mL Iron + Iron Binding Capacity (02/28/2023) ???Iron Level - 43 mcg/dL???Iron Binding Capacity, Unsaturated - 385 mcg/dL???Iron Binding Capacity, Estimated Total - 428 mcg/dL???% Iron Saturation - 10 % Reticulocyte Ct (02/28/2023) ???Retic Count - 2.2 %???Retic Count Corrected - 1.4 %???Retic Production Index - 1.0 % Allergies (NKA means No Known Allergies) NKA Problems Active Problems??(8) COVID-19 affecting in second trimester?? Dermatomyositis?? High risk with low PAPPA (-associated plasma protein A)?? History of section?? Hx of preeclampsia, prior , currently ?? Obese class I? Request for sterilization?? Education Materials Below is the list of Educational Leaflet Providered with your Discharge Instructions. Kick Counts?? Understanding Labor?? Valuables and Belongings I fully understand and agree that [facility] accepts no responsibility for all my personal [...] are strongly encouraged to quit. Please call [facility] [employer] Link at [phone] or [phone] ([phone]) or log in to [email or web address] for referrals to smoking cessation programs. ?? 833 Suicide & Crisis Lifeline is available 08/01 if you or someone you know needs to find a reason to keep living. By calling 017 you'll be connected to a skilled, trained counselor at a crisis center in your area. INPATIENT DISCHARGE INSTRUCTIONS SIGNATURE PAGE EMILY VEGA Location:[facility] Registration Date and Time:02/28/2023 11:19 EDT Primary Care Physician: Abner Nowak MD , Glenda Cox, Attending Physician: Ricardo DAVIS, Ros Munson, I EMILY VEGA, have received the above patient education materials/instructions and have verbalized understanding. If ambulance or transport services are being used I further acknowledge being given a choice of service. ?? If you need to contact me, please call me at this number: . Patient/Mens Locker Room Attendant Name: Patient/Mens Locker Room Attendant Signature: Relationship to Patient: Witness Name/Signature: Date: * Ricci De La Cruz RN: PERFORM Event Display: Patient Education Leaflets Authored Date: [id number] Kick Counts ?? [address] Kick Counts It???s normal to worry about [...] day. ?? Last Reviewed Date: 2022 ?? [id number] [employer]. All rights reserved. This information is not intended as a substitute for professional medical care. Always follow your healthcare professional's instructions. ?? * Ricci De La Cruz RN: PERFORM Event Display: Patient Education Leaflets Authored Date: [id number] Understanding Labor ?? 364[address] Understanding Labor Going into labor before week 37 of is called labor. labor can cause your baby to be born too soon. This can lead to health problems for your baby. Before labor, the cervix is thick and closed. In labor, the cervix begins to efface (thin) and dilate (open). Symptoms of labor If you think you???re having labor, get medical help right away. Contractions alone don???tmean you???re in labor. What matters more are changes in your cervix. The cervix is the opening at the lower end of the uterus. Symptoms of labor include: ??? 4 or more contractions per hour ??? Strong contractions ??? Constant menstrual-like cramping ??? Low-back pain ??? Mucous orbloody fluid from the vagina ??? Bleeding or spotting in the second or third trimester ?? Evaluating labor Your??healthcare provider??will try to find out if you???re in labor or just having contractions. They may watch you for a few hours. You may have these tests: ??? Pelvic exam. This is??to see if your cervix has effaced (thinned) and dilated (opened). ??? Uterine activity monitoring. This is used??to detect contractions. ??? monitoring. This is??done to check the health of your baby. ??? Ultrasound. This test looks at your baby???s size and position. ??? Amniocentesis. This test??checks how mature your baby???s lungs are. ?? Caring for yourself at home If you have contractions, but your cervix is still thick and closed, your healthcare provider may tell you to: ??? Drink plenty of water. ??? Do fewer activities. ??? Rest in bed on your side. ??? Don't have intercourse or stimulate your nipples. ?? When to call your healthcare provider Call your healthcare provider if you have any of these: ??? 4 or more contractions per hour ??? Bagof water breaks ??? Bleeding or spotting ?? If you need hospital care labor often means that you need hospital care. You may need complete bed rest. You may havean IV (intravenous) line in your arm or hand. This is to give you fluids. You may be given pills orinjections. These are done to help prevent contractions. You may get a medicine called a corticosteroid.??This is to help your baby???s lungs mature more quickly. ?? Are you at risk? Any woman can have labor. It may start for no reason. But these risk factors can increase your chances: ??? Past labor or early ??? Smoking, drug, or alcohol use in ??? A multiple (twins or more) ??? Problems with the shape of the uterus ??? Bleeding during the ?? The dangers of A baby born too soon may have health problems. This is because the baby didn???t have enough time to grow. Some of the risks for your baby include: ??? Not or feeding well ??? Having immature lungs ??? Bleeding in the brain ? Reaching term Your goal is to get as close to term (week 37 or later) as you can before giving . The closer you get to term, the??higher your chance of having a healthy baby. Work with your healthcare provider. Together, you can take steps that may keep you from giving too early. ?? Last Reviewed Date: 2021 ?? 0145-0364 [employer]. All rights reserved. This information is not intended as a substitute for professional medical care. Always follow your healthcare professional's instructions. ?? Patient Care team information Care Team Personnel Name: Abner Nowak MD , Glenda Cox Position: Reference Physician Member Role: PCP Address: Address: [address] [place], [place] - Care Team Related Persons Name: EDDIE CHAPPELL Address: home [address] [place] [address] Name: EDUARDA LEBLANC
--- OUTSIDE RECORDS SUMMARY | 2024-02-19 09:19 | XMS_ITS | Continuity of Care Document ---
Author Organization [facility] Address [address] [place] [address]- Care Team Providers Care Business Analytics Analyst Name Role Phone Abner Nowak MD, Glenda Cox Primary Care Physician Encounter [facility] [place] Date(s): 03/20/23 - 03/20/[address] [address]- Discharge Disposition: A-D/C Home Attending Physician: Deven [...] 02/06/23 11:26:00 EDT, Route to Pharmacy Electronically, [facility]/pharmacy #[id number], Partial fill upon [...] 12/22/22 11:26:00 EDT, Route to Pharmacy Electronically, [facility]/pharmacy #[id number], Partial fill upon [...] 03/18/23 18:42:00 EDT, Route to Pharmacy Electronically, [facility]/pharmacy #[id number], Partial fill upon patientrequest [...] 03/18/23 18:42:00 EDT, Route to Pharmacy Electronically, [facility]/pharmacy #[id number], Partial fill upon [...] 03/06/23 11:44:00 EDT, Route to Pharmacy Electronically, [facility]/pharmacy #[id number] Tablet,Partial fill upon patient [...] 0 Refills, Maintenance, 05/19/22 9:13:00 EST, Tablet, [facility]/pharmacy #[id number], Partial fill upon patient request if the prescription is for a schedule II opioid drug., 155, cm,... Start Date: 05/19/22 Status: Ordered Vitamin B12 250 mcg oral tablet 1 tablet = 250 mcg, By Mouth, Daily, # 30 tablet, 0 Refills, Maintenance, 02/08/23 16:07:00 EDT, Tablet, [facility]/pharmacy #[id number], Partial fill upon [...] recent to oldest [Reference Range]: 1 2 Weight 81.5 kg (03/20/23 12:43 PM) Oxygen Saturation [94-100 %] 98 % (03/20/23 12:43 PM) Pulse Rate [55-90 bpm] 72 bpm (03/20/23 12:43 PM) Blood Pressure [90-138/55-84 mm Hg] 130/ 87mm Hg (03/20/23 12:54 PM) Respiratory Rate [16-30 br/min] 18 br/mi n (03/20/23 12:54 PM) 18 br/min (03/20/23 12:43 PM) Temperature [96.8-100.4 DegF] 98.4 DegF (03/20/23 12:43 PM) Mode of Delivery (Oxygen) Room air (03/20/23 12:43 PM) Blood pressure sites Arm, left (03/20/23 12:54 PM) Temperature Route Oral (03/20/23 12:43 PM) Dry Weight 81.5 kg (03/20/23 12:43 PM) Weight Obtained Via Standing scale (03/20/23 12:43 PM) Dry Weight Obtained Via Standing scale (03/20/23 12:43 PM) Social History Social History Type Response Smoking Status Never (less than 100 in lifetime) entered on: 09/07/22 Sex Hospital Progress note * Eugenio Martinez MD: PERFORM Event Display: Progress Note Hospital Authored Date: [id number] Patient: ??EMILY VEGA ? Age:??27 Years?Sex:??Female?:??1995?? LMP/EGA/MINH Gestational Age (EGA) and MINH? * Note: EGA calculated as of 03/20/2023 ?? MINH:??04/13/2023?EGA*:??36 weeks 1 day ? History?(2,0,1,2)?Method:??Last Menstrual Period??(07/07/2022) History of Present Illness 27yo G4 now P3 POD3 from CS and bilateral salpingectomy in the setting of pre e with severe features, s/p mag. Presents today as she was called in to [facility] for severe range BP at home. Reports that this pressure was obtained while she was running around. Denies headache, vision changes, RUQ pain, SOB, CP. Reports mild lochia and minimal CS scar pain. Otherwise doing well Review of Systems as per HPI Physical Exam Vitals & Measurements T:??98.4?F?? HR:??77??(Monitored)?? RR:??18?? BP:??130/87?? SpO2:??98%?? WT:??81.5??kg?? Constitutional:??No acute distress, resting comfortably. Respiratory:??Normal work of breathing.? Abdomen/GI:??Soft, non-distended, no guarding, no rebound tenderness.??Fundus firm at umbilicus with mild tenderness. Low transverse incision covered with steri strips, appears clean, dry and in tact. Gynecologic:??Minimal lochia. Extremities:??No calf tenderness or edema. Skin:??No rash or jaundice. Neurological/Psychiatric:??Mood and affect congruent and stable. Assessment/Plan Assessment:??27yo G4 now P3 POD3 from CS and bilateral salpingectomy in the setting of pre e with severe features, s/p mag. Asymptomatic in [facility] with BPs in normo range although elevated. Meeting appropriate postop milestones. Patient enrolled in babyscripts and has RN BP check tomorrow. Discussed with patient that given her single severe at home with high normal range BPs, it would be appropriate at this time to initiate nifedipine 30mg for improved BP control. Patient in agreement with this plan and will follow up with RN BP visit tomorrow ?? discussed with Dr. Betancur ?? Preeclampsia in period (O14.95):? - normotensive, asymptomatic in [facility] - on babyscripts - nifedipine 30 QD to pharmacy ?? OB History History?(2,0,1,2)? # 1 ?Baby 1 ?Outcome Date:??02/22/2016?Outcome or Result:?Gest Age:??40 weeks ? Outcome:??Live ? Sex:??Female?Wt:?3374 g ?Maternal Complications:??Pre-eclampsia ?Anesthesia Type:??Epidural ? Labor:??No ?Hospital:??[facility] ?Comment:??Failed induction at 2cm ?? # 2 ?Baby 1 ?Outcome Date:??09/03/2019?Outcome or Result:?Gest Age:??39 weeks ? Outcome:??Live ? Sex:??Female?Wt:?3685 g ?Anesthesia Type:??Spinal ? Labor:??No ?Hospital:??[facility] ?Comment:??Dermatomyositis diagnosed in this ?? # 3 ?Baby 1 ?Outcome Date:??05/07/2022?Outcome or Result:??Spontaneous ?Gest Age:??9 weeks 4 days ? Outcome:? Sex:??-- ?Hospital:??[facility] Problem List/Past Medical History Active Problem List COVID-19 affecting in second trimester: (Medical) Dermatomyositis: (Medical) High risk with low PAPPA (-associated plasma protein A): (Medical) History of section: (Medical) Hx of preeclampsia, prior , currently : (Medical) Obese class II: (Medical) : (Obstetric) (07/07/22) Request for sterilization: (Medical) Procedure/Surgical History delivery only;: 03/17/23 section: 09/03/19 section: 02/25/16 Home Medications Acetaminophen: 1,000 mg = 2 tablet, By Mouth, Every 6 hours, PRN (Pain , Moderate) Acetaminophen: 650 mg = 2 capsule, By Mouth, Every 4 hours, PRN (as needed for pain) Aspirin: 162 mg = 2 tablet, By Mouth, Daily at bedtime Azathioprine: 50 mg, By Mouth, Daily Cyanocobalamin: 250 mcg = 1 tablet, By Mouth, Daily Docusate: 100 mg = 1 capsule, By Mouth, 2 times a day, PRN (for constipation) Ferrous Sulfate: See Instructions, Take one tablet By Mouth every other day. Folic Acid: 1 mg = 1 tablet, By Mouth, Daily Hydroxychloroquine: 200 mg = 1 tablet, By Mouth, Daily, Take 1.5 tablets daily Ibuprofen: 600 mg = 1 tablet, By Mouth, Every 6 hours Multivitamin, : By Mouth, Daily NIFEdipine: 30 mg = 1 tablet, By Mouth, Daily Oxycodone: 10 mg = 2 tablet, By Mouth, Every 6 hours, PRN (for pain) Polyethylene Glycol 3350: 17 Gm, By Mouth, Daily, dissolve in water before taking Senna: 1 or 2 tablets, By Mouth, Daily at bedtime, PRN (Constipation) Simethicone: 125 mg = 1 tablet, Chew, 4 times a day Allergies NKA Social History Alcohol Use: Past. Frequency: 1-2 times per year. Electronic Cigarette/Vaping Electronic Cigarette Use: Never. Employment/School Status: Employed. Other: [employer]. Exercise Self assessment: Good condition. Home/Environment Living situation: Home/Independent. Lives with: Children, Significant other. DCF involvement: None. Nutrition/Health Diet: Regular. Sexual Sexually involved in last 6 months: Yes. Gender identity: Identifies as female. Self described orientation: Straight or heterosexual. Preferred pronoun: She/her. Substance Abuse Use: Past. Type: Marijuana. Tobacco Use: Never (less than 100 in lifetime). Patient Education/Follow-Up Follow-up [facility], 03/21/23 10:00 - Telehealth BP check appt with RN ? Note * Roxana Dennis RN: PERFORM Event Display: Discharge/Transfer Note Hospital Authored Date: [id number] Nursing Discharge Note Entered On: 03/20/2023 14:20 EDT Performed On: 03/20/2023 14:20 EDT by Roxana Dennis RN Nursing Discharge Note 2 Discharge Time : 03/20/2023 14:20 EDT Discharge Level of Care at Discharge : Home/Long Term/Foster Care Patient Left Unit Via : Ambulatory Patient Accompanied Off Unit with : Parent DC Instructions Provided & Signed by Pt : Yes Patient Understands D/C Instructions : Yes Patient Instructions Discharge Signed : Yes Did Pt have Specialty Bed or Wound Vac : No Roxana Dennis RN - 03/20/2023 14:20 EDT * Roxana Dennis RN: PERFORM Event Display: Patient Education/Instruction Authored Date: [id number] Inpatient Adult Discharge Instructions [address] [address] Name: EMILY CHAPPELL : 1995 Visit: 03/20/2023 12:34:00 Current Date: 03/20/2023 14:08 Account: [id number] Inpatient Adult Discharge Instructions We would like [...] and their families. Surveys are administered by [employer] ?? If further treatment with your primary care physician or another doctor is recommended, it is important for you to keep the appointment. Call your primary care physician or return to the Emergency Department immediately if your condition worsens, fails to improve, or new symptoms develop. If you need to find a doctor, you can call [facility] for a referral at [phone] or toll free at [phone]) or log in to [email or web address].. ?? [facility], in keeping with [facility] guidance, no longer requires face masks for [...] a health care serg of your choosing. [employer] is a website that allows you to securely view your medical information including your hospital discharge summary, office visit summaries, medications and follow-up visits. You can also request appointments, renew medications, and request access to your medical information using a health care serg of your choosing, or just ask a question. You can enroll at [email or web address] or register during your next office visit. You have been discharged from [facility], Patient Care Unit: [facility]. If you have any questions regarding these instructions after you leave, please call us and we will be happy to assist you. [facility] Your Care Team Attending Physician Deven Betancur MD Tests Performed Below is a partial list of the tests performed during your hospitalization. You may have had other tests and procedures not included in this list. Please discuss all test results with your provider. Primary Care Provider Abner Nowak MD , Glenda Cox Advance Directive Health Care Proxy on File Yes - Health Care Proxy Discharge Vitals Temperature: 98.4 DegF Weight: 81.5 kg Pulse Rate: 72 bpm ?? Respiratory Rate: 18 br/min ?? Systolic Blood Pressure: 130 mm Hg ?? Diastolic Blood Pressure:??87 mm Hg??High ?? Oxygen Saturation: 98 % ?? Studies Pending All tests and labs ordered during this hospital stay have been completed unless listed below. Please discuss all pending results with your provider listed above in these instructions. ?? No incomplete studies found What to do next Instructions From Your Doctor Discharge Orders Scheduled Follow-Up Appointments Sunday 10:00 AM EDT ?? Where: [facility] [address] [place] [address]- Status: Pending Sunday 12:40 PM EDT ?? With: Ashleigh CASTILLO NP, Elizabeth Cox Where: [facility] [address] [place] [address]- Status: Pending You Need to Schedule the Following Appointments Follow Up with??[facility] When:??03/21/2023 10:00 AM EDT Why: Telehealth BP check appt with RN Where: [address] [place] [address]- Discharge Medications EMILY VEGA :1995 Visit Date:03/20/2023 Medications: Please continue your medications until treatment is completed or stopped by your provider. Medications not listed below should be discontinued. Discuss any questions related to medications with your provider. What How Much When Instructions Next Dose Unchanged Acetaminophen (acetaminophen 325 mg oral capsule) 2 capsule Oral Every 4 hours as needed for as needed for pain Unchanged Acetaminophen (Tylenol Extra Strength 500 mg [...] Daily Take 1.5 tablets daily ?? Unchanged Ibuprofen (ibuprofen 600 mg oral tablet) 1 tab(s) Oral Every 6 hours Unchanged Multivitamin, (PNV ) Oral Daily Unchanged Oxycodone (oxyCODONE 5 mg oral tablet) 2 tab(s) Oral Every 6 hours as needed for for pain Unchanged Polyethylene Glycol 3350 (MiraLax oral powder for reconstitution) 17 gram Oral Daily dissolve in water before taking ?? Unchanged Senna (Senna 8.6 mg oral tablet) 1 or 2 tablets Oral Daily at Bedtime as needed for Constipation Unchanged Simethicone (simethicone 125 mg oral tablet, chewable) 1 tab(s) Chew 4 times a day Test Results Below is a partial list [...] preeclampsia, prior , currently ?? Obese class II? Request for sterilization?? Education Materials Below is the list of Educational Leaflet Providered with your Discharge Instructions. After a ?? Understanding Preeclampsia?? Valuables and Belongings I fully understand and agree that [facility] accepts no responsibility for all my [...] to send valuables and belongings home. ? Other Discharge Information ? Pulmonary Rehab Status?? Pulmonary Rehab Discharge Status?? Respiratory Rate: 18 br/min ? Common Emergency Awareness Tips IS IT [...] are strongly encouraged to quit. Please call [facility] Health Link at [phone] or [phone]) or log in to [email or web address] for referrals to smoking cessation programs. ?? 685 Suicide & Crisis Lifeline is available 08/01 if you or someone you know needs to find a reason to keep living. By calling 461 you'll be connected to a skilled, trained counselor at a crisis center in your area. INPATIENT DISCHARGE INSTRUCTIONS SIGNATURE PAGE DIASEMILY RIVERA Location:[facility] Registration Date and Time:03/20/2023 12:34 EDT Primary Care Physician: Abner Nowak MD , Glenda Cox, Attending Physician: Pipe DAVIS, Deven, I EMILY VEGA, have received the above patient education materials/instructions and have verbalized understanding. If ambulance or transport services are being used I further acknowledge being given a choice of service. ?? If you need to contact me, please call me at this number: . Patient/Wire Coater Name: Patient/Wire Coater Signature: Relationship to Patient: Witness Name/Signature: Date: * Roxana Dennis RN: PERFORM Event Display: Patient Education Leaflets Authored Date: [id number] After a ?? [id number] After a It can take time to recover fully after a . It???s important to take care of yourself???both for your own sake and because your new baby needs you. Incision care Tips for taking care of your incision include: ??? You will likely be able to shower and pat the incision dry. ??? Watch your incision for signs of infection. These include redness that gets worse orfluid draining from it. ??? Hold a pillow against the incision when you get up from a lying or sitting position. Also do this when you laugh or cough. ??? Don't do any heavy lifting. Don???t lift anything heavier than your baby until your healthcare provider tells you otherwise. ?? When to call your healthcare provider Call your healthcare provider if any of the following occur: ??? A fever of 100.4?? F??( 38??C) or higher, or as directed by your provider ??? Redness, pain, or discharge at the incision site that gets worse ??? Vaginal bleeding that soaks through a pad per hour or large blood clots ??? Severe painin your stomach ??? No bowel movement within 1 week after the of your baby ??? Vaginal discharge that has a foul odor ??? Swollen, red, and painful area in the leg ??? Burning when urinating??or blood in the urine ??? A rash or hives ??? Sore, red, painful area on the breasts??(may also have flu-like symptoms) ??? Feelings of anxiety, panic, and??depression, or trouble bonding with your baby ?? Last Reviewed Date: 2022 ?? 8842-7090 [employer]. All rights reserved. This information is not intended as a substitute for professional medical care. Always follow your healthcare professional's instructions. ?? * Roxana Dennis RN: PERFORM Event Display: Patient Education Leaflets Authored Date: [id number] Understanding Preeclampsia ?? 71243 Understanding Preeclampsia Preeclampsia is a condition that can happen in . It includes high blood pressure (hypertension), swelling, and signs of organ problems.??It can show up around week 20 of . It often goes away by 12 weeks after you give . It can lead to serious health risks for you and your baby. During your , your healthcare provider will watch your blood pressure. Your blood pressure will be monitored regularly throughout your to help check for preeclampsia. Dangers of preeclampsia If not treated, preeclampsia can cause problems for you and your baby. The placenta is the organ that nourishes your baby. It may tear away from the wall of the uterus. This can put the baby at risk for health problems ( distress). It can put the baby at risk for . Preeclampsia can also cause these health problems in you: ??? Kidney failure or other organ damage ??? Seizures ???Stroke ?? Who???s at risk for preeclampsia? No one knows what causes preeclampsia. It can happen in any person. But there are things that increase your risk. You may need to take a daily low dose of aspirin if you are at risk for preeclampsia. You???re at higher risk for preeclampsia if you have any of these: ??? Diabetes ??? High blood pressure ??? Obesity ??? Kidney disease ??? Autoimmune disease such as lupus ??? A family history of preeclampsia You???re at higher risk if any of these apply to you: ??? This is your first ??? You are having twins or more ??? You???re under age 18 or overage 40 ??? You used in vitro fertilization ??? You are Black And you???re at higher risk if you had any of these in a past : ??? Preeclampsia ??? Intrauterine growth restriction (IUGR) ? Placental abruption ? Symptoms A common symptom of preeclampsia is high blood pressure. Other symptoms may include: ??? Fast weight gain ??? Protein in your urine ??? Headache ??? Belly (abdominal) pain on your right side ??? Vision problems such as flashes or spots ??? Swelling (edema) in your face or hands (this often happens near the end of a normal ) ?? Tests you may have Your healthcare provider will want to check your blood pressure. This will need to be done often inyour . If your blood pressure is high, you may have??these tests: ??? Urine tests to look for protein ??? Blood tests to confirm preeclampsia ??? monitoring to make sure that your babyis healthy ?? Treating preeclampsia Preeclampsia almost always ends soon after you give . Until then, your healthcare provider canhelp you manage it. If your symptoms are mild, you may to: ? Limit your activity ??? Rest in bed ??? Not do heavy lifting ?? If your symptoms are severe, you will stay in the hospital. Treatment here may include: ??? Limits to your activity. This is to help control your blood pressure. You should not lift anything heavy. You will need to spend 8 hours a day lying down with your feet up. ??? Magnesium IV (intravenous) drip. This is done during labor. It's to prevent seizures ??? Induced labor or section. ?? When to call your healthcare provider Call your healthcare provider if your symptoms start quickly or are severe. This includes swelling,weight gain, or other symptoms.??Some cases of preeclampsia are more severe than others. Your symptoms also may change or get worse as you get closer to your due date. ?? Once you give In most cases, preeclampsia goes away on its own soon after you give . This is often by the 12th week after you deliver. Within days after you give , your blood pressure, swelling, and other symptoms??should get better. But for some people, problems from preeclampsia can continue after . ?? preeclampsia Preeclampsia that starts after is rare. There are 2 types: ??? preeclampsia. This may start in the first 48 hours after . ??? Late-onset preeclampsia. This starts more than 48 hours after . Both of these types are rare. But call your healthcare provider right away if you have symptoms of preeclampsia after you give . ?? How daily issues affect your health Many things in your daily life impact your health. This can include transportation, money problems,housing, access to food, and early childhood worker. If you can???t get to medical appointments, [...] who can help. ?? Last Reviewed Date: 2021 ?? [employer]. All rights reserved. This information is not intended as a substitute for professional medical care. Always follow your healthcare professional's instructions. ?? Patient Care team information Care Team Personnel Name: Abner Nowak MD , Glenda Cox Position: Reference Physician Member Role: PCP Address: Address: [address] [place] [address]- Care Team Related Persons Name: EDDIE CHAPPELL Address: home [address] [place] [address] Name: EDUARDA LEBLANC Name: EMILY VEGA GIRL Address: [id number] Address: home [address]
--- OUTSIDE RECORDS SUMMARY | 2024-02-19 09:20 | XMS_ITS | Continuity of Care Document ---
Author Organization [facility] Address [address] [place] [address]- Care Team Providers Care Medical Administrative Technician Name Role Phone Abner Nowak MD, Glenda Cox Primary Care Physician Encounter [facility] [id number] Date(s): 07/11/23 - 08/10/[address] [id number] Attending Physician: Keyana Simons Admitting Physician: AdmtrKeyana Referring Physician: Admtr, Ar8 Allergies, Adverse Reactions, Alerts No Known Allergies [...] 02/06/23 11:26:00 EDT, Route to Pharmacy Electronically, [facility]/pharmacy #[id number], Partial fill upon patient request if the prescriptio... Start Date: 02/06/23 Status: Ordered ferrous sulfate 325 mg oral enteric coated tablet See Instructions, Take one tablet By Mouth every other day., # 45 tablet, Refills 7, Tot. Refills 7, Maintenance, 12/26/22 9:02:00 EDT, Instructions Replace Required Details, Route to Pharmacy Electronically, [facility]/pharmacy #[id number], Partial fill upon charlene... Start Date: 12/26/22 Status: Ordered folic acid 1 mg oral tablet 1 mg, 1, tablet, By Mouth, Daily, # 90 tablet, Refills 2, Tot. Refills 2, Maintenance, 12/22/22 11:26:00 EDT, Route to Pharmacy Electronically, [facility]/pharmacy #[id number], Partial fill upon patient request [...] 03/18/23 18:42:00 EDT, Route to Pharmacy Electronically, [facility]/pharmacy #[id number], Partial fill upon patientrequest if [...] 0 Refills, Maintenance, 05/19/22 9:13:00 EST, Tablet, [facility]/pharmacy #[id number], Partial fill upon patient request if the prescription is for a schedule II opioid drug., 155, cm,... Start Date: 05/19/22 Status: Ordered Vitamin B12 250 mcg oral tablet 1 tablet = 250 mcg, By Mouth, Daily, # 30 tablet, 0 Refills, Maintenance, 02/08/23 16:07:00 EDT, Tablet, [facility]/pharmacy #[id number], Partial fill upon patient request [...] PCP Address: Address: [address] Care Team Related Persons Name: EDDIE CHAPPELL Address: [address] [place] [address] Name: EDUARDA LEBLANC Name: DUSTY COOPER Address: [address] Address: home [address]
--- OUTSIDE RECORDS SUMMARY | 2024-02-19 09:20 | XMS_ITS | Continuity of Care Document ---
Author Organization [facility] Address [address] [place] [address]- Care Team Providers Care Call Center Nurse Name Role Phone Abner Nowak MD, Glenda Cox Primary Care Physician [phone] [place] [facility] [place](s): 09/10/21 - 01/08/22 [facility] [address] [place] [address]- Attending Physician: Maria De Jesus Agee MD Admitting Physician: Maria De Jesus Agee MD Allergies, [...]
--- OUTSIDE RECORDS SUMMARY | 2024-02-19 09:20 | XMS_ITS | Continuity of Care Document ---
Author Organization [facility] Address [address] [place] [id number]- Care Team Providers Care Gse Mechanic Name Role Phone Abner Nowak MD, Glenda Cox Primary Care Physician Encounter [facility] [place] Date(s): 03/06/23 - 04/05/[address] [address]- Allergies, Adverse Reactions, Alerts No Known Allergies Immunizations Given and Recorded Vaccine Date Status Refusal Reason tetanus/diphtheria/pertussis, acel(Tdap) 01/23/23 Given Medications acetaminophen 325 mg oral capsule 2 capsule = 650 mg, By Mouth, Every 4 hours, PRN as needed for pain, # 50 tablet, 0 Refills, Maintenance, 03/18/23 18:42:00 EDT, Capsule, [facility]/pharmacy #[id number], Partial fill upon [...] 02/06/23 11:26:00 EDT, Route to Pharmacy Electronically, [facility]/pharmacy #[id number], Partial fill upon patient request if the prescriptio... Start Date: 02/06/23 Status: Ordered ferrous sulfate 325 mg oral enteric coated tablet See Instructions, Take one tablet By Mouth every other day., # 45 tablet, Refills 7, Tot. Refills 7, Maintenance, 12/26/22 9:02:00 EDT, Instructions Replace Required Details, Route to Pharmacy Electronically, [facility]/pharmacy #[id number], Partial fill upon charlene... Start Date: 12/26/22 Status: Ordered folic acid 1 mg oral tablet 1 mg, 1, tablet, By Mouth, Daily, # 90 tablet, Refills 2, Tot. Refills 2, Maintenance, 12/22/22 11:26:00 EDT, Route to Pharmacy Electronically, [facility]/pharmacy #[id number], Partial fill upon [...] 03/18/23 18:42:00 EDT, Route to Pharmacy Electronically, [facility]/pharmacy #[id number], Partial fill upon patientrequest if the prescription is for a schedule II op... Start Date: 03/18/23 Status: Ordered MiraLax oral powder for reconstitution = 17 Gm, By Mouth, Daily, dissolve in water before taking, # 255 Gm, 0 Refills, Maintenance, 02/06/23 11:26:00 EDT, REC Powder, [facility]/pharmacy #[id number], Partial fill upon [...] 03/18/23 18:42:00 EDT, Route to Pharmacy Electronically, [facility]/pharmacy #[id number], Partial fill upon [...] 03/06/23 11:44:00 EDT, Route to Pharmacy Electronically, [facility]/pharmacy #[id number] Tablet,Partial fill upon [...] 0 Refills, Maintenance, 02/08/23 16:07:00 EDT, Tablet, [facility]/pharmacy #[id number], Partial fill upon [...] Physician Member Role: PCP Address: Address: [address] Care Team Related Persons Name: EDDIE CHAPPELL Address: home [address] [place] [address] Name: EDUARDA LEBLANC Name: DUSTY COOPER Address: [id number] Address: home [address]
--- OUTSIDE RECORDS SUMMARY | 2024-02-19 09:20 | XMS_ITS | Continuity of Care Document ---
Author Organization [facility] Address [address] [place] [id number]- Care Team Providers Care Ammunition Supervisor Name Role Phone Abner Nowak MD, Glenda Cox Primary Care Physician Encounter [facility] [place] Date(s): 05/31/22 - 06/30/[address] [address]- Attending Physician: Keyana Simons Admitting Physician: Keyana Simons Referring Physician: AdmKeyana gonzalez Allergies, Adverse Reactions, Alerts No Known Allergies [...] 05/17/22 20:48:00 EST, Route to Pharmacy Electronically, [facility], Partial fill upon [...] tablet, 1 Refills, Maintenance, 05/17/22 20:48:00 EST, [facility], Partial fill upon patient request if the... Start Date: 05/17/22 Status: Ordered miSOPROStol 200 mcg oral tablet See Instructions, place 2 tabs between each cheek for 30 min then swallow the rest., # 4 tablet, 1 Refills, Maintenance, 05/18/22 19:15:00 EST, [facility]/pharmacy #[id number], Partial fill upon patient request if the prescription is for a schedule II opioid drug.... Start Date: 05/18/22 Status: Ordered ondansetron 4 mg oral tablet 1 tablet = 4 mg, By Mouth, Every 8 hours, PRN Nausea & Vomiting, # 10 tablet, 0 Refills, Maintenance, 05/17/22 20:48:00 EST, Tablet, [facility], Partial fill upon patient request [...] 0 Refills, Maintenance, 05/19/22 9:13:00 EST, Tablet, [facility]/pharmacy #[id number], Partial fill upon patient request if the prescription is for a schedule II opioid drug., 155, cm,... Start Date: 05/19/22 Status: Ordered Problem List Condition Confirmation Course Effective Dates Status Health [facility]us Informant Dermatomyositis Confirmed Active Patient Care team information Care Team Personnel Name: Abner Nowak MD , Glenda Cox Position: Reference Physician Member Role: PCP Address: Address: [address] [place] [id number]- Care Team Related Persons Name: TAJOHANNYEDDIE Address: home [address] [place] [address] Name: EDUARDA LEBLANC
--- OUTSIDE RECORDS SUMMARY | 2024-02-19 09:20 | XMS_ITS | Continuity of Care Document ---
Author Organization [facility] ter Address [address] [place] [id number]- Care Team Providers Care Disc Sander Name Role Phone Abner Nowak MD, Kasey Primary Care Physician [place] [facility] [place] - 03/18/[address] [id number] Discharge Disposition: A-D/C Home Attending Physician: Fátima [...] Refills, Maintenance, 03/18/23 18:42:00 EDT, Capsule, [id number], Partial fill upon patient request if the prescription is for a schedule II opioid drug., 155,... Start Date: 03/18/23 Status: Ordered Acetaminophen Tablet 650 mg, Tablet, By Mouth, (1-3), may give 325mg per patient preference and re- dose with 325mg within 4 hours, if needed. Patient should only receive a total of 650mg of Acetaminophen every 4 hours., 03/18/23 12:00:00 EDT Start Date: 03/18/23 Stop Date: 03/18/23 Status: Completed aspirin 81 mg oral delayed release tablet 162 mg, 2, tablet, By Mouth, Daily at bedtime, # 90 tablet, Refills 4, Tot. Refills 4, Maintenance,11/21/22 10:15:00 EDT, Route to Pharmacy Electronically, [facility]/pharm[facility] #[id number], Partial fill upon patient request [...] 11:26:00 EDT, Route to Pharmacy Electronically, [facility]/pharm[facility] #[id number], Partial fill upon patient request [...] 11:26:00 EDT, Route to Pharmacy Electronically, [facility]/pharm[facility] #[id number], Partial fill upon patient request [...] 18:42:00 EDT, Route to Pharmacy Electronically, [facility]/pharmacy #[id number], Partial fill upon patientrequest if the prescription is for a schedule II op... Start Date: 03/18/23 Status: Ordered MiraLax oral powder for reconstitution = 17 Gm, By Mouth, Daily, dissolve in water before taking, # 255 Gm, 0 Refills, Maintenance, 02/06/23 11:26:00 EDT, REC Powder, [facility]/pharmacy #[id number], Partial fill upon patient request if the prescription is for a schedule II opioid drug., 17 Gm By Mouth... Start Date: 02/06/23 Status: Ordered oxyCODONE 5 mg oral tablet 10 mg, 2, tablet, By Mouth, Every 6 hours, PRN, # 12 tablet, Refills 0, Tot. Refills 0, Maintenance, for pain, 03/18/23 18:42:00 EDT, Route to Pharmacy Electronically, [facility]/pharmacy #[id number], Partial fill upon patient request if the prescription is for a... Start Date: 03/18/23 Status: Ordered OxyCODONE IR Tablet 5 mg, Tablet, By Mouth, Every 3 hours, PRN for Pain , Severe, (7-10), Routine, 03/18/23 7:23:00 EDT Start Date: 03/18/23 Stop Date: 03/19/23 Status: Discontinued PNV By Mouth, Daily, 0 Refills, Maintenance, 09/26/22 10:54:00 EDT, Partial fill upon patient request if the prescription is for a schedule II opioid drug. Start Date: 09/26/22 Status: Ordered Senna 8.6 mg oral tablet 1 or 2 tablets, By Mouth, Daily at bedtime, PRN, # 60 tablet, Refills 0, Tot. Refills 0, Maintenance, Constipation, 03/06/23 11:44:00 EDT, Route to Pharmacy Electronically, [facility]/pharmacy #[id number] Tablet,Partial fill upon patient request if the prescripti... Start Date: 03/06/23 Status: Ordered simethicone 125 mg oral tablet, chewable 1 tablet = 125 mg, Chew, 4 times a day, # 48 tablet, 0 Refills, Maintenance, 03/18/23 18:42:00 EDT,Chew Tablet, [facility]/pharmacy #[id number], Partial fill upon patient request if the prescription is for a schedule II opioid drug., 155, cm, 03/18/23 17:03:00 ED... Start Date: 03/18/23 Status: Ordered triamcinolone 0.025% topical cream 1 application, Topically, 2 times a day, for 14 days, # 15 Gm, 0 Refills, Acute 03/20/23 11:44:00 EDT, 03/06/23 11:44:00 EDT, Cream, [facility]/pharmacy #[id number], Partial fill upon patient request if the prescription is for a schedule II opioid drug., 1 applica... Start Date: 03/06/23 Stop Date: 03/20/23 Status: Ordered Tylenol Extra Strength 500 mg oral tablet 2 tablet = 1,000 mg, By Mouth, Every 6 hours, PRN Pain , Moderate, # 24 tablet, 0 Refills, Maintenance, 05/19/22 9:13:00 EST, Tablet, [facility]/pharmacy #[id number], Partial fill upon patient request if the prescription is for a schedule II opioid drug., 155, cm,... Start Date: 05/19/22 Status: Ordered Vitamin B12 250 mcg oral tablet 1 tablet = 250 mcg, By Mouth, Daily, # 30 tablet, 0 Refills, Maintenance, 02/08/23 16:07:00 EDT, Tablet, [facility]/pharmacy #[id number], Partial fill upon patient request [...] Confirmed Active Request for sterilization Confirmed Active Procedures Procedure Date Related Diagnosis Body Site Status delivery only; 03/17/23 C ompleted Vital Signs Most recent to oldest [Reference Range]: 1 2 3 Height 155 cm (03/18/23 5:03 PM) 155 cm (03/18/23 1:16 PM) 155 cm (03/18/23 9:39 AM) Weight 87.2 kg (03/16/23 8:06 PM) 87.2 kg (03/16/23 3:59 PM) Oxygen Saturation [94-100 %] 100 % (03/18/23 5:03 PM) 99 % (03/18/23 1:16 PM) 98 % (03/18/23 9:39 AM) Pulse Rate [55-90 bpm] 82 bpm (03/18/23 5:03 PM) 78 bpm (03/18/23 1:16 PM) 80 bpm (03/18/23 9:39 AM) Body Mass Index [18.5-24.99 kg/m2] 36.3 kg/m2 *>HHI* (03/16/23 8:06 PM) Blood Pressure [90-138/55-84 mm Hg] 138/87mm Hg (03/18/23 5:03 PM) 106/68mm Hg (03/18/23 1:16 PM) 136/79mm Hg (03/18/23 9:39 AM) Respiratory Rate [16-30 br/min] 16 br/min (03/18/23 5:03 PM) 16 br/min (03/18/23 5:02 PM) 16 br/min (03/18/23 5:02 PM) Temperature [96.8-100.4 DegF] 98.3 DegF (03/18/23 5:03 PM) 98.1 DegF (03/18/23 9:39 AM) 97.7 DegF (03/18/23 4:09 AM) Mode of Delivery (Oxygen) Room air (03/18/23 5:03 PM) Room air (03/18/23 1:16 PM) Room air (03/18/23 9:39 AM) Blood pressure sites Arm, right (03/18/23 5:03 PM) Arm, right (03/18/23 1:16 PM) Arm, right (03/18/23 9:39 AM) Temperature Route Oral (03/18/23 5:03 PM) Oral (03/18/23 9:39 AM) Oral (03/18/23 4:09 AM) Dry Weight 87.2 kg (03/16/23 8:06 PM) 87.2 kg (03/16/23 3:59 PM) Weight Obtained Via Standing scale (03/16/23 3:59 PM) Dry Weight Obtained Via Standing scale (03/16/23 3:59 PM) Social History Social History Type Response Smoking Status Never (less than 100 in lifetime) entered on: 09/07/22 Sex Female History and physical note * Yasmin DAVIS, Fátima Munson: MODIFY Lyndsay Pruitt MD: PERFORM Event Display: History and Physical Hospital Authored Date: [id number] Patient: ??EMILY VEGA ? Age:??27 Years?Sex:??Female?:??1995?? OB Reason for Admission OB Reason for Admission?? No qualifying data available. LMP/EGA/MINH Gestational Age (EGA) and MINH? * Note: EGA calculated as of 03/17/2023 ?? MINH:??04/13/2023?EGA*:??36 weeks 1 day ? 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 She then presented to [facility] where she proceeded to have??mildto high mild range blood pressures.?? [facility] labs were normal??and [facility] however??TPCR was 0.29. ??She denies headache, shortness of breath, chest pain, vision changes, right upper quadrant pain,??lower extremity edema. ??She denies contractions, loss of fluid, decreased movement. Physical Exam Vitals & Measurements T:??98.6?F?? HR:??105??(Monitored)?? RR:??16?? BP:??142/76?? SpO2:??99%?? HT:??155??cm?? WT:??87.2??kg?? BMI:??36.3?? Constitutional:??Normal affect, no acute distress, well-developed. Respiratory:??Normal exam, not labored, clear to auscultation, equal bilaterally, not rales, crackles, wheezing,??or rhonchi.? Cardiovascular:??RRR, no murmurs.? Abdomen/GI:??Soft, non-tender, and non-distended, no guarding, no rebound tenderness.?? Extremities:?? No edema or erythema Skin:??No rash or jaundice. Normal for ethnicity. Neurological/Psychiatric:??Appearance appropriate, mood and affect stable. ? OB Assessment Baby A Baseline:135 Baseline Description:Normal, 110-160 bpm Baseline Variability:Moderate variability Accelerations:Present 2 or more Deceleration:None Activity:Present Uterine Monitor Mode, UterineExternal Assessment/Plan Assessment:??27-year-old G4, P2 at 36w??who was admitted for blood pressure monitoring in the setting of??a new diagnosis of gestational hypertension however after shortly reaching the floor she ruled in for preeclampsia with severe features based off the severe range blood pressures.?She remains asymptomatic of signs and symptoms of preeclampsia.??We will proceed with health labs every 6 hours.??TPCR 0.29 on admission.??Remainder of HELLP labs normal.?Given??she is 36 weeks with a new diagnosis of preeclampsia with severe features will proceed towards delivery. She has a history of 2 prior C- sections and plans??on a repeat section.??Will initiate magnesium for seizure prophylaxis. ??She is seen in high risk clinic for history of??dermatomyositis??for which she is on??azathioprine and hydroxychloroquine. ?? We discussed the etiology and features of pre-eclampsia. We discussed that in the setting of pre-eclampsia with severe-range blood pressures or severe features, that the risk of seizure and eclampsiaindicates prophylactic treatment with IV magnesium sulphate. We discussed that this medication decreases the risks of seizure, and that concurrent treatment of blood pressures decreases the rare riskof stroke in the setting of severe-range BPs. The risks of magnesium were discussed including respiratory paralysis or cardiac conduction abnormalities or cardiac arrest with hypermagnesemia. We discussed that she will be monitored for clinical signs of magnesium toxicity every 4-6 hours to prevent this. Side effects of magnesium include feeling warm/diaphoretic, flushed, nausea/vomiting, headache, shortness of breath or mild chest pain or palpitations, feeling slow or foggy, and muscle weakness. She will be monitored for these symptoms. ?? We also discussed the recommendation for delivery as she is beyond 34 weeks gestational age. Given that she has had two prior c-sections and was planning repeat , delivery recommended by . ??We discussed that symptoms may persist beyond delivery, and that we will continue magnesium for 24 hours following delivery, and then continue close monitoring of her blood pressures and symptoms. Patient expressed understanding and agreement with plan. ?? Anemia (D64.9):? Hgb 8.6 on admission 2 u RBC on hold ?? Dermatomyositis (M33.90):??azathioprine, hydroxychloroquine. She will resume MTX . Patient currently experiencing flare of rash and itching. Echo WNL. PFTs showed mild restrictive defect, elevated DLCO ?? High risk with low PAPPA (-associated plasma protein A) (O28.0):?Normal JEAN-PIERRE, growth on 12/12 anatomy scan ??NIPT low risk ?? History of section (Z98.891):? 2 previous c/s at??term ??Posterior placenta Plan for repeat ?? Large for gestational age fetus affecting mother, antepartum (O36.60X0):?- Growth US 02/20: 93%ile ?? Request for sterilization (Z30.2):? [x] tubal papers signed on 10/31 ?? Severe preeclampsia (O14.10):? - HELLP labs on admission wnl, TPCR 0.29 - severe range BP - Repeat HELLP labs q6h -- 4g Mag bolus-- >2g mag/ hr -- I&O q 4hr -- BP q1h -- SCDs in place -- Mag check q 4-6 hr -- ( ) Delivery ?? Patient seen and discussed with Dr. Hoffman, attending physician ? I saw the above patient and reviewed the findings and plan with the resident. Agree with assessment and plan. Fermin Hoffman MD OB History History?(2,0,1,2)? # 1 ?Baby 1 ?Outcome Date:??02/22/2016?Outcome or Result:?Gest Age:??40 weeks ? Outcome:??Live ? Sex:??Female?Wt:?3374 g ?Maternal Complications:??Pre-eclampsia ?Anesthesia Type:??Epidural ? Labor:??No ?Hospital:??[facility] ?Comment:??Failed induction at 2cm ?? # 2 ?Baby 1 ?Outcome Date:??09/03/2019?Outcome or Result:?Gest Age:??39 weeks ? Outcome:??Live ? Sex:??Female?Wt:?3685 g ?Anesthesia Type:??Spinal ? Labor:??No ?Hospital:??[facility] ?Comment:??Dermatomyositis diagnosed in this ?? # 3 ?Baby 1 ?Outcome Date:??05/07/2022?Outcome or Result:??Spontaneous ?Gest Age:??9 weeks 4 days ? Outcome:? Sex:??-- ?Hospital:??[facility] Labs Labs Labs & Tests Antibody Screen: Negative (09/26/22) Creatinine-Blood: 0.6 mg/dL (03/16/23) Down Syndrome Age Risk FTS: Age Risk: (09/26/22) Down Syndrome Scrn Risk FTS: Screening Risk: (09/26/22) Glucose 50 Gm, +60 Minutes: 108 mg/dL (12/26/22) Hct:??26.5 %??Low (03/16/23) Hemoglobinopathy Interpretation: Normal hemoglobins, with anemia. (09/26/22) Hepatitis B Surface Antigen: NEGATIVE (09/26/22) Hepatitis C Ab: NEGATIVE (09/26/22) Hgb:??8.6 Gm/dL??Low (03/16/23) HIV 4th Generation Ab-Ag Result: NEGATIVE (09/26/22) RPR Titer Result: NOT INDICATED (12/26/22) Rubella IgG Ab: POSITIVE (09/26/22) Syphilis Screen by BRAD: NEGATIVE (12/26/22) Trisomy 18 Scrn Risk FTS: Screening Risk: (09/26/22) Urine Culture: Urine Culture (12/26/22) Varicella IgG Ab: POSITIVE (09/26/22) Problem List Active Active Problem List COVID-19 affecting in second trimester: (Medical) Dermatomyositis: (Medical) High risk with low PAPPA (-associated plasma protein A): (Medical) History of section: (Medical) Hx of preeclampsia, prior , currently : (Medical) Obese class II: (Medical) : (Obstetric) (07/07/22) Request for sterilization: (Medical) Procedure/Surgical History section: 09/03/19 section: 02/25/16 Home Medications Acetaminophen: 1,000 mg = 2 tablet, By Mouth, Every 6 hours, PRN (Pain , Moderate) Aspirin: 162 mg = 2 tablet, By [...] By Mouth, Daily, Take 1.5 tablets daily Multivitamin, : By Mouth, Daily Polyethylene Glycol 3350: 17 Gm, By Mouth, Daily, dissolve in water before taking Senna: 1 or 2 tablets, By Mouth, Daily at bedtime, PRN (Constipation) Triamcinolone Topical: 1 application, Topically, 2 times a day Allergies NKA Social History [...] Use: Never (less than 100 in lifetime). Family History Mother: Hypertension; Rheumatoid arthritis Plan OB Plan Feeding Plan: Breast milk & Formula (03/16/23) [facility] Progress note * Nadeen Mistry RN: SIGN, VERIFY, PERFORM Event Display: Progress Note Hospital Authored Date: Patient: EMILY VEGA [facility]: [id number] Age: 27 years Sex: Female : 1995 Associated Diagnoses: None Author: Nadeen Mistry RN Pt alert and oriented x4. Vital signs stable, BP within range. Pain well controlled with scheduled and PRN meds. Obstetrically stable. @, firm, midline, Mild lochia. Jesse area intact. Steris to lowerabd c/d/i. +CMS noted to all extremities. Mild edema to BLE. Tolerating PO intake without nausea, passing flatus. Voiding without issue, recording output. Ambulating within room with steady gait. Formula feeding . Bonding appropriately. Safe sleep continuously encouraged. No acute distress noted. Call jimenez within reach. Plan of care updated.. * Jessika DAVIS, Aisha: PERFORM Event Display: Progress Note Hospital Authored Date: [id number] Patient: ??EMILY VEGA ? Age:??27 Years?Sex:??Female?:??1995?? LMP/EGA/MINH Gestational Age (EGA) and MINH? * Note: EGA calculated as of 03/18/2023 ?? MINH:??04/13/2023?EGA*:??36 weeks 1 day ? History?(2,0,1,2)?Method:??Last Menstrual Period??(07/07/2022) Subjective In to see patient for morning rounds.??She is feeling well this morning. Pain is well controlled with??oral pain meds, and her bleeding has remained light. She is ambulating, voiding spontaneously, and tolerating regular diet. Not yet passing flatus. Denies any headache, vision changes, right upperquadrant pain, chest pain, shortness of breath, or new onset swelling. No questions or concerns. Review of Systems Negative except as stated in above HPI. Physical Exam Vitals & Measurements T:??97.7?F?? HR:??72??(Peripheral)?? RR:??18?? BP:??140/82?? SpO2:??98%?? HT:??155??cm?? WT:??87.2??kg?? BMI:??36.3?? General: Well-appearing woman in no acute distress. Lung: Normal work of breathing. Lungs clear to auscultation bilaterally. No wheezes or crackles. CV: Regular rate and rhythm. No murmurs, rubs, or gallops. Abdomen: Soft, non-distended, appropriately tender. Fundus firm and contracted below umbilicus. Low-transverse abdominal incision covered with pressure dressing, clean/dry/intact. BLOOD SPLATTER ANALYST:??Minimal lochia present. Psychiatric: The patient is alert and oriented with an appropriate mood and affect.?? Extremities:??No pitting edema in bilateral lower extremities. OB Intake and Output Intake and Output Results?? This visit (24 hour periods starting at 07:00 EDT)? 03/17/23 *?? 03/16/23?? 03/15/23?? Total Summary?Intake mL?? 500?? 358.333?? --?Output mL?? 850?? 1,334?? --?Fluid Balance ?? -350?? -975.667?? --?? Intake (2)?Lactated Ringers Injection 1,000 mL mL?? 250?? 358.333?? --?Magnesium Sulfate 20 Gm mL?? 250?? --?? --?Total?? 500?? 358.333?? --?? Output (3)?Blood Loss - Quantitative mL?? --?? 634?? --?Urine Catheter mL?? 650?? --?? --?Urine Voided mL?? 200?? 700?? --?Total?? 850?? 1,334?? --?? Counts (3)?Urine Catheter mL?? 650?? --?? --?Urine Count ?? 4?? --?? --?Urine Voided mL?? 200?? 700?? --? * This column has not completed the indicated time period.?? Assessment/Plan Assessment:??Patient is a 27 yo G4 now P2113 post-op day??1 following repeat c- section and bilateral salpingectomy??in the setting of pre-eclampsia with severe features. She is now s/p magnesium for seizure prophylaxis and blood pressures normotensive to low mild range. She is meeting appropriate early post-operative and milestones. We will continue to monitor. ?? Severe preeclampsia (O14.10):? - s/p Mag for seizure prophylaxis - Monitor BPs q 1 hr - Monitor Is and O's - PO antihypertensive regimen: None - ( ) [employer] BP monitoring on discharge ?? care following delivery (Z39.2):? - Continue routine care - Diet: Regular - Pain control: Ibuprofen & Tylenol, Oxycodone prn - Simethicone, docusate - Encourage ambulation, SCDs when not ambulating - s/p Ross, voiding spontaneously - Incision: Plan to remove pressure dressing today ?? Dermatomyositis (M33.90):? - Continue azathioprine and hydroxychloroquine - Patient will resume MTX - Last echo wnl. PFTs showed mild restrictive defect nd elevated DLCO. ?? OB History History?(2,0,1,2)? # 1 ?Baby 1 ?Outcome Date:??02/22/2016?Outcome or Result:?Gest Age:??40 weeks ? Outcome:??Live ? Sex:??Female?Wt:?3374 g ?Maternal Complications:??Pre-eclampsia ?Anesthesia Type:??Epidural ? Labor:??No ?Hospital:??[facility] ?Comment:??Failed induction at 2cm ?? # 2 ?Baby 1 ?Outcome Date:??09/03/2019?Outcome or Result:?Gest Age:??39 weeks ? Outcome:??Live ? Sex:??Female?Wt:?3685 g ?Anesthesia Type:??Spinal ? Labor:??No ?Hospital:??[facility] ?Comment:??Dermatomyositis diagnosed in this ?? # 3 ?Baby 1 ?Outcome Date:??05/07/2022?Outcome or Result:??Spontaneous ?Gest Age:??9 weeks 4 days ? Outcome:? Sex:??-- ?Hospital:??[facility] Active Problem List Active Problem List COVID-19 affecting in second trimester: (Medical) Dermatomyositis: (Medical) High risk with low PAPPA (-associated plasma protein A): (Medical) History of section: (Medical) Hx of preeclampsia, prior , currently : (Medical) Obese class II: (Medical) : (Obstetric) (07/07/22) Request for sterilization: (Medical) Medications Medications (17) Active SCHEDULED: (4) Acetaminophen 325 mg Tablet (Acetaminophen Tablet) ??650 mg, By Mouth, Every 4 hours Docusate Sodium 100 mg Capsule (Docusate Sodium Capsule) ??100 mg 1 capsule, By Mouth, 2 times a day Famotidine 20 mg Tablet (Famotidine Tablet) ??20 mg, By Mouth, 2 times a day Ibuprofen 800 mg Tablet (Ibuprofen Tablet) ??800 mg, By Mouth, Every 8 hours CONTINUOUS: (1) Lactated Ringers (1000 mL) Cont IV 1,000 mL (Lactated Ringers 1,000 mL) ??1,000 mL, IV Infusion, 125 mL/hr PRN: (12) Acetaminophen 325 mg Tablet (Acetaminophen Tablet) ??650 mg, By Mouth, Once diphenhydrAMINE 25 mg Tablet (DiphenhydrAMINE Tablet) ??25 mg, By Mouth, Every 4 hours diphenhydrAMINE 50 mg/mL Inj (DiphenhydrAMINE Inj) ??25 mg 0.5 mL, IV Push, Once FENTanyl 50 mcg/mL Inj (2 mL) (FENTanyl Inj) ??25 mcg 0.5 mL, IV Push, Every 5 minutes Metoclopramide 5 mg/mL Inj (2 mL) (Metoclopramide Inj) ??10 mg, IV Push, Every 6 hours nalOXONE ??400mcg/mL Inj (nalOXONE Inj) ??0.1 mg 0.25 mL, IV Push Slowly, Every 15 minutes Ondansetron 2mg/mL Inj (2mL Vial) (Ondansetron Inj) ??4 mg, IV Push, Every 6 hours OxyCODONE 5 mg IR Tablet (OxyCODONE IR Tablet) ??5 mg, By Mouth, Every 3 hours OxyCODONE 5 mg IR Tablet (OxyCODONE IR Tablet) ??10 mg, By Mouth, Every 3 hours OxyCODONE 5 mg IR Tablet (OxyCODONE IR Tablet) ??5 mg, By Mouth, Every 3 hours OxyCODONE 5 mg IR Tablet (OxyCODONE IR Tablet) ??10 mg, By Mouth, Once Simethicone 80 mg Chewable Tablet (Simethicone Tablet) ??80 mg, Chew, 3 times a day Allergies NKA * Jordan DAVIS, Meron Friend: PERFORM Event Display: Progress Note Hospital Authored Date: I have personally seen and evaluated the patient.??I have discussed the case and its management with the resident and agree with the findings and plan??as noted.?? Patient strongly desires to go home today. She reports she is tolerating diet, voiding, ambulating and with excellent pain control. She??is aware of risks??of??worsening blood pressures . She??is not currently taking any antihypertensives. She will be??enrolled in??[employer] and is aware of the importance of checking her pressures at home. ?? Meron Ortega MD * Candida Younger RN: PERFORM, MODIFY, SIGN, VERIFY Event Display: Progress Note Hospital Authored Date: Patient: EMILY VEGA Age: 27 years Sex: Female : 1995 Associated Diagnoses: None Author: Candida Younger RN Findings Problem Related to Alteration in Comfort : Alteration in Comfort/new 03/17/2023 21:00 EDT Alteration in Comfort Related to Surgery, Other: s/p C/S Goals & Outcomes: Comfort Pt will report acceptable level of comfort & pain control, Pt will state importance of adhering to pain strategy regime, Pt will demonstrate necessary skills to manage pain, Non-verbal indicators will indicate comfort/pain control Interventions Implemented: Comfort Assess pain using appropriate pain scale/tools, Assess aggravating factors & prevent them accordingly, Assess alleviating factors & promote them accordingly BH Goals/Interventions, Comfort Yes Comfort, Problem Start 03/17/2023 21:00 Reviewed plan with, Comfort Patient Patient Progression, Comfort Plan Initiation Comfort, Problem Ongoing Yes . Narrative/Incidental Pt arrived to W2 unit room 273 and was oriented to room and call jimenez. Fundal/bleeding check done with LDRP RN and WNL. Fundus at the umbilicus and firm, flow is mild lochia rubra. +BSx4, abdomen soft and tender upon palpation. Dressing in place and CDI. Pt is voiding and denies passing flatulence, PRN Simethicone given. 2+ BLE edema present in the BLE. Pt educated on tracking urine output. LS CTA. VSS, Call jimenez within reach, bed in lowest position, and non slip socks on. . Note * Lyndsay Pruitt MD: PERFORM Event Display: Discharge/Transfer Note Hospital Authored Date: Patient: ??EMILY VEGA ? Age:??27 Years?Sex:??Female?:??1995?? Admit Date Admission Date: 03/16/2023 OB Reason for Admission OB Reason for Admission?? No qualifying data available. [facility] Hospital Course 27-year-old G4, P2 at 36w??who was admitted for blood pressure monitoring in the setting of??a new diagnosis of gestational hypertension however after shortly reaching the floor she ruled in for preeclampsia with severe features based off the severe range blood pressures.?She underwent a repeat section and bilateral salpingectomy. Pressures improved following delivery. Postoperative course was uncomplicated and she was discharged home. Objective/Physical Exam on Day of Discharge Vitals & Measurements T:??98.3?F?? HR:??82??(Peripheral)?? RR:??16?? BP:??138/87?? SpO2:??100%?? HT:??155??cm?? WT:??87.2??kg?? BMI:??36.3?? Constitutional: The patient is a well-appearing woman, in no acute distress. Abdomen: Soft, nondistended, appropriately tender postoperatively. Fundus firm and below umbilicus.Incision C/D/I Gynecologic/:??Bleeding minimal.?? Psychiatric: The patient is alert and oriented with an appropriate mood and affect.?? Extremities: No pitting edema, cellulitis. Assessment/Plan/Discharge Diagnosis Assessment:??27-year-old G4, P3 POD1 from a repeat section and bilateral salpingectomy forpre-eclampsia with SF. Now normotensive. Patient is very eager to go home. We discussed the risks of early discharge, including poor pain control, postoperative complications, uncontrolled blood pressures without BP monitoring, and risk of stroke/ seizure. She plans to go home on babyscripts. We reviewed reasons to return to [facility]. From a postoperative standpoint she is meeting milestones, and BPsare controlled today. Discharged home with babyscripts. ?? Anemia (D64.9):? Hgb 8.6 on admission iron ?? Dermatomyositis (M33.90):? azathioprine, hydroxychloroquine. She will resume MTX . Patient currently experiencing flare of rash and itching. Echo WNL. PFTs showed mild restrictive defect, elevated DLCO ?? care following delivery (Z39.2):?-routine care -monitor for milestones -meds: ibu/tyl/oxy -s/p ross, spontaneously voiding -encourage ambulation, SCDs while in bed -encourage use incentive spirometer - (x ) Rx on discharge - Incision: C/D/I - VTE prophylaxis: SCDs while in bed, encourage ambulation ?? Request for sterilization (Z30.2):? s/p tubal ?? Severe preeclampsia (O14.10):? - HELLP labs on admission wnl, TPCR 0.29 - s/p mag - Babyscripts - normotensive - no meds Future Appointments Sunday 11:20 AM EDT ?? Where: [facility] [address] [place] [id number]- Status: Pending Sunday 11:20 AM EDT ?? Where: [facility] [address] [place] [id number]- Status: Pending Sunday 11:20 AM EDT ?? Where: [facility] [address] [place] [id number]- Status: Pending Sunday 11:30 AM EDT ?? [facility] [facility] [place] [facility] [place] Status: Pending Sunday 11:20 AM EDT ?? Where: [facility] [address] [place] [id number]- Status: Pending Delivery Summary Delivery Summary Maternal Information ??Delivery Information ?Gestational Age at Delivery: ??36W 1D ?Delivery Complications: ??None ?Blood Loss - Quantitative: ??634 mL ? Baby A ??Delivery Information ?Delivery Type: ??, low transverse ?Reason for : ??Other: Pre-Eclampsia with severe features ? Priority: ??Non scheduled ?Decision for : ??03/16/23 23:30:00 ?Incision Time for : ??03/17/23 06:04:00 ?Decision to Incision time: ??394 min ?Date, Time of : ??03/17/23 06:17:00 ? Position: ??Supine ?Foot of bed removed: ??No ?Delayed Cord Clamping: ??Yes ?Placenta Delivery Date/Time: ??03/17/23 06:18:00 ??Care Team ?Time NICU Team Called: ??03/17/23 06:09:00 ??Labor Information ?3rd Stage, Length of Labor: ??1 min ? monitoring: ??External monitor ?? Information ? Outcome: ??Live ? Position: ??Right occiput anterior ? Weight: ??3.331 kg ? Score 1 minute: ??8 ? Score 5 minute: ??9 ? Score 10 minute: ??9 ?Transferred To: ?? Care area with Family ?Gender: ??Female ? Discharge Medications ???Acetaminophen (Tylenol Extra Strength 500 mg oral tablet)???Acetaminophen (acetaminophen 325 mg oral capsule)???Aspirin (aspirin 81 mg oral delayed release tablet)???Azathioprine???Cyanocobalamin (Vitamin B12 250 mcg oral tablet)???Docusate (Colace sodium 100 mg oral capsule)???Ferrous Sulfate (f errous sulfate 325 mg oral enteric coated tablet)???Folic Acid (folic acid 1 mg oral tablet)???Hydroxychloroquine (hydroxychloroquine 200 mg oral tablet)???Ibuprofen (ibuprofen 600 mg oral tablet)???Multivitamin, (PNV )???Oxycodone (oxyCODONE 5 mg oral tablet)???Polyethylene Hdqums2992 (MiraLax oral powder for reconstitution)???Senna (Senna 8.6 mg oral tablet)???Simethicone (simethicone 125 mg oral tablet, chewable)???Triamcinolone Topical (triamcinolone 0.025% topical cream) Immunizations during Hospitalization Vaccine Date Status tetanus/diphtheria/pertussis, acel(Tdap) 01/23/2023 Given Feeding Method Feeding Method: Formula (03/17/23 08:12:00) * Meron Ortega MD T: PERFORM Event Display: Discharge/Transfer Note Hospital Authored Date: [id number] I have personally seen and evaluated the patient.??I have discussed the case and its management with the resident and agree with the findings and plan??as noted.? Meron Ortega MD * Nadeen Mistry RN: PERFORM Event Display: Discharge/Transfer Note Hospital Authored Date: [id number] Nursing Discharge Note Entered On: 03/18/2023 18:55 EDT Performed On: 03/18/2023 18:52 EDT by Nadeen Mistry RN Nursing Discharge Note 2 Discharge Time : 03/18/2023 18:52 EDT Discharge Level of Care at Discharge : Home/Assisted/Foster Care Patient Left Unit Via : Ambulatory Patient Accompanied Off Unit with : Responsible adult DC Instructions Provided & Signed by Pt : Yes Patient Understands D/C Instructions : Yes Patient Instructions Discharge Signed : Yes Did Pt have Specialty Bed or Wound Vac : No Nadeen Mistry RN - 03/18/2023 18:55 EDT * Nadeen Mistry RN: PERFORM Event Display: Patient Education/Instruction Authored Date: [id number] Inpatient Adult Discharge Instructions [address] [address] Name: EMILY CHAPPELL : 1995 Visit: 03/16/2023 19:06:00 Current Date: 03/18/2023 18:28 Account: [id number] Inpatient Adult Discharge Instructions We would like [...] and their families. Surveys are administered by [employer] ?? If further treatment with your primary care physician or another doctor is recommended, it is important for you to keep the appointment. Call your primary care physician or return to the Emergency Department immediately if your condition worsens, fails to improve, or new symptoms develop. If you need to find a doctor, you can call [facility] for a referral at [phone] or toll free at [phone]) or log in to [email or web address].. ?? [facility], in keeping with [facility] guidance, no longer requires face masks for [...] a health care serg of your choosing. [employer] is a website that allows you to securely view your medical information including your hospital discharge summary, office visit summaries, medications and follow-up visits. You can also request appointments, renew medications, and request access to your medical information using a health care serg of your choosing, or just ask a question. You can enroll at [email or web address] or register during your next office visit. You have been discharged from [facility], Patient Care Unit: [facility]. If you have any questions regarding these instructions after you leave, please call us and we will be happy to assist you. [facility] Your Care Team Attending Physician Yasmin DAVIS, Fátima Munson Discharging Providers Lyndsay Pruitt MD Reason for Admission PREG MINH 04 13 2023HIGH BP Your Diagnosis COVID-19 affecting in second trimester Dermatomyositis High risk with low PAPPA (-associated plasma protein A) History of section Hx of preeclampsia, prior , currently Anemia Request for sterilization Large for gestational age fetus affecting mother, antepartum Constipation in Leg pain, left Severe preeclampsia care following delivery Tests Performed Below is a partial list of the tests performed during your hospitalization. You may have had other tests and procedures not included in this list. Please discuss all test results with your provider. ALT AST BUN CBC Creatinine Protein/Creatinine Ratio Urine SGOT SGPT Primary Care Provider Abner Nowak MD , Glenda Cox Advance Directive Health Care Proxy on File Yes - Health Care Proxy Discharge Vitals Temperature: 98.3 DegF Height: 155 cm Pulse Rate: 82 bpm Weight: 87.2 kg Respiratory Rate: 16 br/min Body Mass Index:??36.3 kg/m2??Critical Systolic Blood Pressure: 138 mm Hg Body surface area: 1.94 Diastolic Blood Pressure:??87 mm Hg??High ?? Oxygen Saturation: 100 % ?? Studies Pending All tests and labs ordered during this hospital stay have been completed unless listed below. Please discuss all pending results with your provider listed above in these instructions. ?? Hold Lavender Tube (BB) What to do next Instructions From Your Doctor Discharge Orders Instructions from your Care Team Discharge Care Instructions for the New Mom?? Please take a few moments to read through these helpful instructions before you leave the hospital.??Your nurse will be glad to answer any questions you may have. ??You can also find this and more information throughout the purple??Becoming a Family??booklet,??[facility]???s New Beginnings Guide??and the?? Consultation Services Guide??given to you after the of your baby. ??You may also phone our nurses stations if you have further questions. ??[facility]: ??First Floor ([phone]), Second Floor ([phone]). ?? Please call your provider if you have any questions or concerns ??before your next appointment. For ongoing support??please?Like?us on our Facebook page?[facility] New Beginnings?and sign up for our email newsletter at??[email or web address]. ??News and information will be sent to you??until your baby???s third birthday. Instructions for the New Mother Activity:?? For the next 2 weeks at home?no heavy lifting, avoid unnecessary stair climbing, and no driving (especially if you are taking medicine that may make you sleepy or feel that you are sleep deprived). ?? For the next 4-6 weeks - no tampons, no douches, no sexual intercourse. Use your jesse bottle to rinse your perineum until your vaginal flow stops. ??If you have stitches in your bottom, they generally dissolve within 7-10 days. ??Apply Tucks/witch linda pads until your soreness subsides. ??Use your bathroom at home every 3 to 4 hours, rinse, and change your pads. Warm showers feel great on achy muscles, sore backs and sore bottoms. Exercise: Walking is the best form of exercise. ??Wait until your follow up appointment with your provider in4-6 weeks before engaging in more strenuous activity. Diet: Drink plenty of fluids to avoid constipation and to help support your recovery. Eat plenty of iron rich foods such as red meat, iron fortified cereals like Total and Cream of Wheat, raisins, prunes, greens and spinach. ??These will help to build your blood count back up as all women lose some blood after delivery. ??Also add foods rich in Vitamin C such as strawberries, oranges, papayas, kale and jimenez peppers. Continue to take your vitamins if you are . ??If you are not follow the instructions of your provider. ??If you were prescribed iron supplements such as ferrous sulfate, it is important to continue these until your doctor or clinical program coordinator tells you to stop. Breast Care for Nursing Mothers: Wear a comfortable fitting, supportive nursing bra. ??An underwire bra is not recommended. Express drops of breast milk and rub over your nipples and areola (brown area) before and after each feeding to protect and heal sensitive skin and then air dry your nipples. ??If you are experiencing any soreness, you may purchase nipple cream such as TenderCare or Lansinoh. ??Use it in the following manner: ??finish your feeding or pumping session, self-express colostrum onto your nipple and air dry, apply the nipple cream to the nipple and areola. ??Use only small amounts for best results. If you are having difficulty getting the baby to latch onto the breast due to swelling of the areola, try applying pressure with your fingers for a couple of minutes above and below your nipple and walk your fingers outward softening the area and pushing the swelling away. ??This technique is knownas reverse pressure softening. ??For demonstrations of this and other techniques such as the [place] Hand Expression technique, please refer to the resources section of the Consultation Services Guide that you received from services.?? When your milk first comes in, usually within 3 to 5 days after delivery, you may experience engorgement. ??Your breasts may become swollen and very tender. ??Cold compresses work great to help with discomfort and reduce swelling. It will get better in a couple of days. ??Continue to nurse your baby frequently. ?? Call [facility]???s Consultation Service at [phone], press 1 to schedule an outpatient appointment or press 3??and a business objects consultant will return your call that day or the next if you call after 3pm. Breast Care for Bottle Feeding Mothers: Engorgement may occur within the first week after delivery. ??Your breasts may become hard and verytender. ??A cool compress of cleaned raw green cabbage leaves applied to the breast and changed as leaves wilt has been proven helpful for many women. ??Ice packs or frozen bags of peas also work nicely to ease the discomfort. ??The soreness will only last a couple of days. Keep your back turned to the water while showering to decrease breast stimulation. Wear a snug fitting bra such as a sports bra. Incision Care Following Tubal or Section: You may shower as directed by your doctor or clinical program coordinator. ??Pat your incision dry with a clean towel. ??You will not need a bandage after the first day. Call your doctor or clinical program coordinator with any signs of infection such as a hard, hot swollen tender incision, especially if the skin around the incision looks pink or red. ??Yellow drainage with an odor may also be a sign of infection to report. Call your doctor or clinical program coordinator if the incision begins to separate. If you have steri-strips on the incision, they will likely fall off in the first week. ??If they have not fallen off by 10 days after delivery, you may remove them. Pain Management: Cramping after is common and increases in strength with each baby you have. ??If you experience painful cramps, and have no allergies to acetaminophen (Tylenol) or ibuprofen (Motrin), you may continue to take these medications as you did in the hospital. ??Ibuprofen is also helpful with back aches following epidurals, perineal pain following a vaginal delivery, and moderate incisional pain after a section or a tubal ligation. ?? If you experience gas distention, especially after surgery, you may take an over the counter medication called simethicone. ??Take these chewable tablets 4 times a day as needed and directed on the package. ??Keep moving. ??Walking or rocking in a chair, will help to move the gas along. ??Harpal tea made with heated harpal edgardo (instead of water) and a tea bag, stirred to dissolve carbonation (bubbles) is a helpful drink to soothe a gassy stomach. Warning Signs of a Problem to Notify Your Doctor or Driver of: Heavy vaginal bleeding?which is??soaking a pad every hour??with bright red blood. Passing blood clots the size of an egg or larger. An incision that is not healing. A temperature greater than or equal to 100.4 especially if accompanied by any of the following symptoms?painful, frequent urination; extreme back or flank pain; lower belly pain with a foul smell to your vaginal flow; a red hard hot area on your breast. ?? Severe headache that does not go away after taking acetaminophen or ibuprofen. ?? A headache that changes your vision, including seeing spots or blurring. Right sided upper abdominal pain along the rib cage area. Pain in your legs that is warm and tender to the touch. depression signs may include?loss of interest in your baby, weepiness, difficulty focusing, weight loss with no appetite, exhaustion, feeling overwhelmed or anxious, feelings??of despair, or thoughts of harming yourself or your baby. ??These symptoms are important and should be discussed with your doctor or clinical program coordinator. depression may develop over a period of time and needs prompt medical attention. ??Do not suffer in silence. ??In both the??Becoming a Family??booklet and the??[facility]??New Beginnings Guide??there is a screening tool used to identify women at risk, called the [place] Scale which you have taken in the office prior to delivery and again during your ho spital stay. ??Three to four weeks after your delivery, and before your check with your provider, take this test and share your results with your provider. ??Be sure to mention any score of 10 or more. ?? Many women, and even some partners, may experience the?baby blues?? . ??This is a state of feeling overwhelmed and weepy. ??Discomfort from childbirth, hormonal changes, exhaustion, changes to your body and lifestyle are a few of the things that contribute to the highs and lows new parents go through. ??Don???t be afraid to ask your partner or family and friends for some help at home so you can get some rest and a few minutes to yourself. ??The blues will quickly pass. Personal Safety: Every person has the right to feel safe at home and live free from physical or emotional harm. ??Ifyou have suffered mental or physical abuse at home, you are not alone. ??There is help. ??Please call [employer] or the [email or web address] Program at [phone].?? Scheduled Follow-Up Appointments Sunday 11:20 AM EDT ?? Where: [facility]oding Special[facility] [address] [place] [id number]- Status: Pending Sunday 11:20 AM EDT ?? Where: [facility] [address] [place] [id number]- Status: Pending Sunday 11:20 AM EDT ?? Where: [facility] [address] [place] [id number]- Status: Pending Sunday 11:30 AM EDT ?? Where: [facility] Labor and Delivery Status: Pending Sunday 11:20 AM EDT ?? Where: [facility] [address] [place] [id number]- Status: Pending Discharge Medications EMILY VEGA :1995 Visit Date:03/16/2023 Medications: Please continue your medications until treatment is completed or stopped by your provider. Medications not listed below should be discontinued. Discuss any questions related to medications with your provider. What How Much When Instructions Next Dose Unchanged Acetaminophen (Tylenol Extra Strength 500 mg oral tablet) 2 tab(s) Oral Every 6 hours as needed for Pain , Moderate 03/18 7pm Unchanged Aspirin (aspirin 81 mg oral delayed release tablet) 2 tab(s) Oral Daily at Bedtime 03/19 8am Unchanged Azathioprine 50 Milligram Oral Daily 03/19 8am Unchanged Cyanocobalamin (Vitamin B12 250 mcg oral tablet) 1 tab(s) Oral Daily 03/19 8 am Unchanged Docusate (Colace sodium 100 mg oral capsule) 1 capsule Oral Twice a day as needed for for constipation 03/18 9pm Unchanged Ferrous Sulfate (ferrous sulfate 325 mg oral enteric coated tablet) See instructions Take one tablet By Mouth every other day. ?? 03/18 9pm Unchanged Hydroxychloroquine (hydroxychloroquine 200 mg oral tablet) 1 tab(s) Oral Daily Take 1.5 tablets daily ?? 03/19 8 am Unchanged Polyethylene Glycol 3350 (MiraLax oral powder for reconstitution) 17 gram Oral Daily dissolve in water before taking ?? 03/19 8 am Unchanged Senna (Senna 8.6 mg oral tablet) 1 or 2 tablets Oral Daily at Bedtime as needed for Constipation 03/18 9pm Unchanged Triamcinolone Topical (triamcinolone 0.025% topical cream) 1 serg Topically Twice a day Duration: 14 Days 03/18 9pm Test Results Below is a partial list of the most recent Laboratory test results done prior to this discharge. You may have had other tests and procedures not included in this list. Please discuss all test resultswith your provider. Est Creatinine Clearance - 158.19 mL/min (03/17/2023) ALT (03/18/2023) ???ALT (SGPT) - 5 units/L AST (03/18/2023) ???AST (SGOT) - 24 units/L BUN (03/16/2023) ???BUN - 8 mg/dL CBC (03/18/2023) ???WBC - 7.6 k/mm3???RBC - 2.98 m/mm3???Hgb - 8.0 Gm/dL???Hct - 25.4 %???MCV - 85.2 femtoliters???MCH - 26.8 pg???MCHC - 31.5 g/dL???Platelet Count - 174 k/mm3???RDW-SD - 48.5 femtoliters???MPV - 11.6 femtoliters???Nucleated RBC (Automated) - 0.0 #/100 WBC'S???Abs. NRBC - 0.0 k/mm3 Creatinine (03/18/2023) ???Creatinine-Blood - 0.4 mg/dL???Estimated GFR Creatinine - 138 ML/MIN/1.73 M2 Protein/Creatinine Ratio Urine (03/16/2023) ???Protein, Total Urine Random - 15 mg/dL???TP/Cr Ratio - 0.29???Creatinine, Urine - 51.7 mg/dL SGOT (03/16/2023) ???AST (SGOT) - 19 units/L SGPT (03/16/2023) ???ALT (SGPT) - 7 units/L Allergies (NKA means No Known Allergies) NKA Problems Active Problems??(8) COVID-19 affecting in second trimester?? Dermatomyositis?? High risk with low PAPPA (-associated plasma protein A)?? History of section?? Hx of preeclampsia, prior , currently ?? Obese class II? Request for sterilization?? Education Materials Below is the list of Educational Leaflet Providered with your Discharge Instructions. Valuables and Belongings I fully understand and agree that [facility] accepts no responsibility for all my [...] encouraged to send valuables and belongings home. ?? Review of Valuable and Belonging List: With patient Date for Pt to Sign Valuables/Belongings: 03/18/23 10:04:00 ?? Other Discharge Information ? Pulmonary Rehab Status?? Pulmonary Rehab Discharge Status?? Respiratory Rate: 16 br/min ? Common Emergency Awareness Tips IS [...] are strongly encouraged to quit. Please call [facility] at [phone] or [phone]) or log in to [email or web address] for referrals to smoking cessation programs. ?? 782 Suicide & Crisis Lifeline is available 08/01 if you or someone you know needs to find a reason to keep living. By calling 192 you'll be connected to a skilled, trained counselor at a crisis center in your area. INPATIENT DISCHARGE INSTRUCTIONS SIGNATURE PAGE EMILY VEGA Location:[facility] Registration Date and Time:03/16/2023 19:06 EDT Primary Care Physician: Abner Nowak MD , Glenda Cox, Attending Physician: Fátima Hoffman MD, I EMILY VGEA, have received the above patient education materials/instructions and have verbalized understanding. If ambulance or transport services are being used I further acknowledge being given a choice of service. ?? If you need to contact me, please call me at this number: . Patient/Laboratory Inspector Name: Patient/Laboratory Inspector Signature: Relationship to Patient: Witness Name/Signature: Date: Patient Care team information Care Team Personnel Name: Abner Nowak MD , Glenda Cox Position: Reference Physician Member Role: PCP Address: Address: [address] [place] [id number]- Name: Tari Mckinney RN Position: S OB RN Member Role: Patient Care Provider Name: Nadeen Mistry RN Position: S OB RN Member Role: OB RN Care Team Related Persons Name: EDDIE CHAPPELL Address: home [address] [place] [address] Name: EDUARDA LEBLANC Name: DIASKOSTAS CHAPPELLEMILY GIRL Address: [id number] Address: home [address] [place] [id number]
--- OUTSIDE RECORDS SUMMARY | 2024-02-19 09:20 | XMS_ITS | Continuity of Care Document ---
Author Organization [facility] Address [address] [place] [address]- Care Team Providers Care Tie Presser Name Role Phone Abner Nowak MD, Glenda Cox Primary Care Physician Encounter [facility] Date(s): 01/10/23 - 05/10/[address] [address]- Attending Physician: Not on Staff, Attending MD [...] Refills, Maintenance, 02/06/23 11:26:00 EDT, REC [facility], [facility]/pharmacy #[id number], Partial fill [...] Address: Address: [address] [place] [address]- Care Team Related Persons Name: EDDIE CHAPPELL Address: home [address] [place] [address] Name: EDUARDA LEBLANC Name: DUSTY COOPER Address: [address] Address: home [address] [place] [address] [place]
--- OUTSIDE RECORDS SUMMARY | 2024-02-19 09:20 | XMS_ITS | Continuity of Care Document ---
Author Organization [facility] Address [address] [place] [address] [address] [place] [address]- Care Team Providers Care Paper Sales Representative Name Role Phone Glenda Marinelli MD Primary Care Physician [phone] Encounter [facility] [place] Date(s): 03/10/22 - 04/09/[address] [place] [address]- Attending Physician: Keyana Simons Admitting Physician: AdmtrKeyana Referring Physician: AdmtrKeyana Allergies, Adverse Reactions, Alerts [...] Personnel Name: Glenda Marinelli MD Address: Address: [address] [place] [address]-
--- OUTSIDE RECORDS SUMMARY | 2024-02-19 09:20 | XMS_ITS | Continuity of Care Document ---
Author Organization [facility] Address [address] [place] [address]- Care Team Providers Care Director Security Management Name Role Phone Abner Nowak MD, Glenda Cox Primary Care Physician [id number] Date(s): 09/26/22 - 11/23/[address] [address]- Attending Physician: Noreen Ribera CNM Admitting Physician: Noreen Ribera CNM Allergies, Adverse Reactions, [...] 11/23/22 15:58:00 EDT, [facility]/pharmacy #[id number], Partial fill upon patient request if the [...] 9:13:00 EST, Tablet, [facility]/pharmacy #[id number], Partial fill upon patient request if the [...] PCP Address: Address: [address] [place] [address]- Care Team Related Persons Name: EDDIE CHAPPELL Address: home [address] [place] [address] Name: EDUARDA LEBLANC
--- OUTSIDE RECORDS SUMMARY | 2024-02-19 09:20 | XMS_ITS | Continuity of Care Document ---
Author Organization [facility] Address [address] [place] [address]- Care Team Providers Care Health Technical Writer Name Role Phone Abner Nowak MD, Glenda Cox Primary Care Physician [phone] [place] [facility] [place] Date(s): 02/16/23 - 03/18/[address] [address] Allergies, Adverse Reactions, Alerts No Known Allergies Immunizations Given and Recorded Vaccine Date Status Refusal Reason tetanus/diphtheria/pertussis, acel(Tdap) 01/23/23 Given Medications acetaminophen 325 mg oral capsule 2 capsule = 650 mg, By Mouth, Every 4 hours, PRN as needed for pain, # 50 tablet, 0 Refills, Maintenance, 03/18/23 18:42:00 EDT, Capsule, [facility]/pharmacy #[id number], Partial fill upon patient [...] 02/06/23 11:26:00 EDT, Route to Pharmacy Electronically, [facility]/pharmacy #[id number], Partial fill upon patient request if the prescriptio... Start Date: 02/06/23 Status: Ordered ferrous sulfate 325 mg oral enteric coated tablet See Instructions, Take one tablet By Mouth every other day., # 45 tablet, Refills 7, Tot. Refills 7, Maintenance, 12/26/22 9:02:00 EDT, Instructions Replace Required Details, Route to Pharmacy Electronically, [facility]/pharmacy #[id number], Partial fill upon charlene... Start Date: 12/26/22 Status: Ordered folic acid 1 mg oral tablet 1 mg, 1, tablet, By Mouth, Daily, # 90 tablet, Refills 2, Tot. Refills 2, Maintenance, 12/22/22 11:26:00 EDT, Route to Pharmacy Electronically, [facility]/pharmacy #[id number], Partial fill upon patient [...] 03/18/23 18:42:00 EDT, Route to Pharmacy Electronically, [facility]/pharmacy #[id number], Partial fill upon patientrequest if the prescription is for a schedule II op... Start Date: 03/18/23 Status: Ordered MiraLax oral powder for reconstitution = 17 Gm, By Mouth, Daily, dissolve in water before taking, # 255 Gm, 0 Refills, Maintenance, 02/06/23 11:26:00 EDT, REC Powder, [facility]/pharmacy #[id number], Partial fill upon patient request if the prescription is for a schedule II opioid drug., 17 Gm By Mouth... Start Date: 02/06/23 Status: Ordered oxyCODONE 5 mg oral tablet 10 mg, 2, tablet, By Mouth, Every 6 hours, PRN, # 12 tablet, Refills 0, Tot. Refills 0, Maintenance, for pain, 03/18/23 18:42:00 EDT, Route to Pharmacy Electronically, [facility]/pharmacy #[id number], Partial fill upon patient [...] 0 Refills, Maintenance, 05/19/22 9:13:00 EST, Tablet, [facility]/pharmacy #[id number], Partial fill upon patient request if the prescription is for a schedule II opioid drug., 155, cm,... Start Date: 05/19/22 Status: Ordered Vitamin B12 250 mcg oral tablet 1 tablet = 250 mcg, By Mouth, Daily, # 30 tablet, 0 Refills, Maintenance, 02/08/23 16:07:00 EDT, Tablet, [facility]/pharmacy #[id number], Partial fill upon patient [...] Role: PCP Address: Address: [address] [place] [address]- Care Team Related Persons Name: EDDIE CHAPPELL Address: home [address] [place] [address] Name: EDUARDA LEBLANC Name: LARISSA CHAPPELL TIARAENRIQUE GIRL Address: Address: home [address]
--- OUTSIDE RECORDS SUMMARY | 2024-02-19 09:20 | XMS_ITS | Continuity of Care Document ---
Author Organization [facility] Address [address] [place] [address]- Care Team Providers Care Ld Teacher Name Role Phone Abner Nowak MD, Kasey Primary Care Physician En[place] [facility] [place] Date(s): 05/03/22 - 07/05/22 [facility] [address] [place] [address]- Attending Physician: Willa [place] MD Admitting Physician: [...] 05/17/22 20:48:00 EST, Route to Pharmacy Electronically, [facility], Partial fill upon [...] tablet, 1 Refills, Maintenance, 05/17/22 20:48:00 EST, [facility], Partial fill upon patient request if the... Start Date: 05/17/22 Status: Ordered miSOPROStol 200 mcg oral tablet See Instructions, place 2 tabs between each cheek for 30 min then swallow the rest., # 4 tablet, 1 Refills, Maintenance, 05/18/22 19:15:00 EST, [facility]/pharmacy #[id number], Partial fill upon patient request if the prescription is for a schedule II opioid drug.... Start Date: 05/18/22 Status: Ordered ondansetron 4 mg oral tablet 1 tablet = 4 mg, By Mouth, Every 8 hours, PRN Nausea & Vomiting, # 10 tablet, 0 Refills, Maintenance, 05/17/22 20:48:00 EST, Tablet, [facility], Partial fill upon [...] 0 Refills, Maintenance, 05/19/22 9:13:00 EST, Tablet, [facility]/pharmacy #[id number], Partial fill upon patient request if the prescription is for a schedule II opioid drug., 155, cm,... Start Date: 05/19/22 Status: Ordered Problem List Condition Confirmation Course Effective Dates Status Health St [facility] Informant Dermatomyositis Confirmed Active Patient Care team information Care Team Personnel Name: Abner Nowak MD , Glenda Cox Position: Reference Physician Member Role: PCP Address: Address: [address] [place] [address]- [place] Care Team Related Persons Name: EDDIE CHAPPELL Address: home [address] [place] [address] Name: EDUARDA LEBLANC
--- OUTSIDE RECORDS SUMMARY | 2024-02-19 09:20 | XMS_ITS | Continuity of Care Document ---
Author Organization [facility] Address [address] [place] [address]- Care Team Providers Care Insulation Board Back Tender Name Role Phone Abner Nowak MD, Glenda Cox Primary Care Physician Encounter [facility] [place] [place] Date(s): 12/09/21 - 01/08/22 [facility] [address] [place] [address]- Attending Physician: Keyana Simons Admitting Physician: Keyana Simons Referring Physician: Keyana Simons Allergies, Adverse Reactions, Alerts No Known Allergies [...]
--- OUTSIDE RECORDS SUMMARY | 2024-02-19 09:20 | XMS_ITS | Continuity of Care Document ---
[facility] Address [address] [place] [address]- Care Team Providers Care Deputy Sheriff Court Services Name Role Phone Abner Nowak MD, Glenda Cox Primary Care Physician Encounter [facility] [place] Date(s): 02/16/23 - 03/18/23 [facility] [address] [place], [place] [address] Allergies, Adverse Reactions, Alerts No Known Allergies Immunizations Given and Recorded Vaccine Date Status Refusal Reason tetanus/diphtheria/pertussis, acel(Tdap) 01/23/23 Given Medications acetaminophen 325 mg oral capsule 2 capsule = 650 mg, By Mouth, Every 4 hours, PRN as needed for pain, # 50 tablet, 0 Refills, Maintenance, 03/18/23 18:42:00 EDT, Capsule, [facility]/pharmacy #[id number], Partial fill upon patient request if the prescription is for a schedule II opioid drug., 155,... Start Date: 03/18/23 Status: Ordered aspirin 81 mg oral delayed release tablet 162 mg, 2, tablet, By Mouth, Daily at bedtime, # 90 tablet, Refills 4, Tot. Refills 4, Maintenance,11/21/22 10:15:00 EDT, Route to Pharmacy Electronically, [facility]/pharmacy #[id number], Partial fill upon patient request if the prescription is for a schedule II... Start Date: 11/21/22 Status: Ordered Azathioprine = 50 mg, By Mouth, Daily, 0 Refills, Maintenance, 05/17/22 19:07:00 EST, Partial fill upon patient request if the prescription is for a schedule II opioid drug. Start Date: 11/30/22 Status: Ordered Colace sodium 100 mg oral capsule 100 mg, 1, capsule, By Mouth, 2 times a day, PRN, # 20 capsule, Refills 0, Tot. Refills 0, Maintenance, for constipation, 02/06/23 11:26:00 EDT, Route to Pharmacy Electronically, [facility]/pharmacy #[id number], Partial fill upon patient request if the prescriptio... Start Date: 02/06/23 Status: Ordered ferrous sulfate 325 mg oral enteric coated tablet See Instructions, Take one tablet By Mouth every other day., # 45 tablet, Refills 7, Tot. Refills 7, Maintenance, 12/26/22 9:02:00 EDT, Instructions Replace Required Details, Route to Pharmacy Electronically, [facility]/pharmacy #[id number], Partial fill upon charlene... Start Date: 12/26/22 Status: Ordered folic acid 1 mg oral tablet 1 mg, 1, tablet, By Mouth, Daily, # 90 tablet, Refills 2, Tot. Refills 2, Maintenance, 12/22/22 11:26:00 EDT, Route to Pharmacy Electronically, [facility]/pharmacy #[id number], Partial fill upon patient request if [...] 03/18/23 18:42:00 EDT, Route to Pharmacy Electronically, [facility]/pharmacy #[id number], Partial fill upon patientrequest if the prescription is for a schedule II op... Start Date: 03/18/23 Status: Ordered MiraLax oral powder for reconstitution = 17 Gm, By Mouth, Daily, dissolve in water before taking, # 255 Gm, 0 Refills, Maintenance, 02/06/23 11:26:00 EDT, REC Powder, [facility]/pharmacy #[id number], Partial fill upon patient request if the prescription is for a schedule II opioid drug., 17 Gm By Mouth... Start Date: 02/06/23 Status: Ordered oxyCODONE 5 mg oral tablet 10 mg, 2, tablet, By Mouth, Every 6 hours, PRN, # 12 tablet, Refills 0, Tot. Refills 0, Maintenance, for pain, 03/18/23 18:42:00 EDT, Route to Pharmacy Electronically, [facility]/pharmacy #[id number], Partial fill upon patient request if [...] 03/06/23 11:44:00 EDT, Route to Pharmacy Electronically, [facility]/pharmacy #[id number] Tablet,Partial fill upon patient request if the prescripti... Start Date: 03/06/23 Status: Ordered simethicone 125 mg oral tablet, chewable 1 tablet = 125 mg, Chew, 4 times a day, # 48 tablet, 0 Refills, Maintenance, 03/18/23 18:42:00 EDT,Chew Tablet, [facility]/pharmacy #[id number], Partial fill upon patient request if the prescription is for a schedule II opioid drug., 155, cm, 03/18/23 17:03:00 ED... Start Date: 03/18/23 Status: Ordered triamcinolone 0.025% topical cream 1 application, Topically, 2 times a day, for 14 days, # 15 Gm, 0 Refills, Acute 03/20/23 11:44:00 EDT, 03/06/23 11:44:00 EDT, Cream, [facility]/pharmacy #[id number], Partial fill upon patient request if [...] 0 Refills, Maintenance, 02/08/23 16:07:00 EDT, Tablet, [facility]/pharmacy #[id number], Partial fill upon patient request if [...] Physician Member Role: PCP Address: Address: [address] [place] [address]- Care Team Related Persons Name: EDDIE CHAPPELL Address: home [address] [place], [place] Name: EDUARDA LEBLANC Name: EMILY VEGA GIRL Address: Address: home [address] [place] [address] [place]
--- OUTSIDE RECORDS SUMMARY | 2024-02-19 09:20 | XMS_ITS | Continuity of Care Document ---
Author Organization [facility] Address [address] [place] [address]- Care Team Providers Care Summer Associate Name Role Phone Abner Nowak MD, Glenda Cox Primary Care Physician [phone] [id number] Date(s): 05/23/22 - 06/22/[address] [address]- Allergies, Adverse Reactions, Alerts No Known Allergies [...] 05/17/22 20:48:00 EST, Route to Pharmacy Electronically, [facility], Partial fill upon patient [...] tablet, 1 Refills, Maintenance, 05/17/22 20:48:00 EST, [facility], Partial fill upon patient request if the... Start Date: 05/17/22 Status: Ordered miSOPROStol 200 mcg oral tablet See Instructions, place 2 tabs between each cheek for 30 min then swallow the rest., # 4 tablet, 1 Refills, Maintenance, 05/18/22 19:15:00 EST, [facility]/pharmacy #[id number], Partial fill upon patient request if the prescription is for a schedule II opioid drug.... Start Date: 05/18/22 Status: Ordered ondansetron 4 mg oral tablet 1 tablet = 4 mg, By Mouth, Every 8 hours, PRN Nausea & Vomiting, # 10 tablet, 0 Refills, Maintenance, 05/17/22 20:48:00 EST, Tablet, [facility], Partial fill upon patient [...] 0 Refills, Maintenance, 05/19/22 9:13:00 EST, Tablet, [facility]/pharmacy #[id number], Partial fill upon patient request if the prescription is for a schedule II opioid drug., 155, cm,... Start Date: 05/19/22 Status: Ordered Problem List Condition Confirmation Course Effective Dates Status Health St [facility] Informant Dermatomyositis Confirmed Active Patient Care team information Care Team Personnel Name: Abner Nowak MD , Glenda Cox Position: Reference Physician Member Role: PCP Address: Address: [address] [place] [address]- Care Team Related Persons Name: EDDIE CHAPPELL Address: home [address] [place] [address] Name: EDUARDA LEBLANC
--- OUTSIDE RECORDS SUMMARY | 2024-02-19 09:20 | XMS_ITS | Continuity of Care Document ---
Author Organization [facility] Address [address] [place] [address]- Care Team Providers Care Teaching Associate Name Role Phone Not on Staff, PCP Primary Care Physician Unavail able Encounter [facility] Date(s): 06/26/19 - 07/03/19 [place] [address]- [facility] Attending Physician: Edward DAVIS, Noreen Phan
--- OUTSIDE RECORDS SUMMARY | 2024-02-19 09:20 | XMS_ITS | Continuity of Care Document ---
Author Organization [facility] Address [address] [place] [address]- Care Team Providers Care Executive Casino Host Name Role Phone Abner Nowak MD, Glenda Cox Primary Care Physician [id number] Date(s): 03/19/23 - 04/18/[address] [address] Allergies, Adverse Reactions, Alerts No Known Allergies Immunizations Given and Recorded Vaccine Date Status Refusal Reason tetanus/diphtheria/pertussis, acel(Tdap) 01/23/23 Given Medications acetaminophen 325 mg oral capsule 2 capsule = 650 mg, By Mouth, Every 4 hours, PRN as needed for pain, # 50 tablet, 0 Refills, Maintenance, 03/18/23 18:42:00 EDT, Capsule, [facility]/pharmacy #[id number], Partial fill upon patient request if the prescription is for a schedule II opioid drug., 155,... Start Date: 03/18/23 Status: Ordered aspirin 81 mg oral delayed release tablet 162 mg, 2, tablet, By Mouth, Daily at bedtime, # 90 tablet, Refills 4, Tot. Refills 4, Maintenance,11/21/22 10:15:00 EDT, Route to Pharmacy Electronically, [facility]/pharmacy #[id number], Partial fill upon [...] 02/06/23 11:26:00 EDT, Route to Pharmacy Electronically, [facility]/pharmacy #[id number], Partial fill upon patient request if the prescriptio... Start Date: 02/06/23 Status: Ordered ferrous sulfate 325 mg oral enteric coated tablet See Instructions, Take one tablet By Mouth every other day., # 45 tablet, Refills 7, Tot. Refills 7, Maintenance, 12/26/22 9:02:00 EDT, Instructions Replace Required Details, Route to Pharmacy Electronically, [facility]/pharmacy #[id number], Partial fill upon charlene... Start Date: 12/26/22 Status: Ordered folic acid 1 mg oral tablet 1 mg, 1, tablet, By Mouth, Daily, # 90 tablet, Refills 2, Tot. Refills 2, Maintenance, 12/22/22 11:26:00 EDT, Route to Pharmacy Electronically, [facility]/pharmacy #[id number], Partial fill upon [...] 03/18/23 18:42:00 EDT, Route to Pharmacy Electronically, [facility]/pharmacy #[id number], Partial fill upon patientrequest [...] Refills, Maintenance, 03/20/23 15:44:00 EDT, ER Tablet, [facility]/pharmacy #[id number], Partial fill upon patient request if the prescription is for a schedule II opioid drug., 155, cm, 03/18/23 17:03:00 EDT, Heig... Start Date: 03/20/23 Status: Ordered oxyCODONE 5 mg oral tablet 10 mg, 2, tablet, By Mouth, Every 6 hours, PRN, # 12 tablet, Refills 0, Tot. Refills 0, Maintenance, for pain, 03/18/23 18:42:00 EDT, Route to Pharmacy Electronically, [facility]/pharmacy #[id number], Partial fill upon [...] 03/06/23 11:44:00 EDT, Route to Pharmacy Electronically, [facility]/pharmacy #[id number] Tablet,Partial fill upon patient request if the prescripti... Start Date: 03/06/23 Status: Ordered simethicone 125 mg oral tablet, chewable 1 tablet = 125 mg, Chew, 4 times a day, # 48 tablet, 0 Refills, Maintenance, 03/18/23 18:42:00 EDT,Chew Tablet, [facility]/pharmacy #[id number], Partial fill upon patient request if the prescription is for a schedule II opioid drug., 155, cm, 03/18/23 17:03:00 ED... Start Date: 03/18/23 Status: Ordered Tylenol Extra Strength 500 mg oral tablet 2 tablet = 1,000 mg, By Mouth, Every 6 hours, PRN Pain , Moderate, # 24 tablet, 0 Refills, Maintenance, 05/19/22 9:13:00 EST, Tablet, [facility]/pharmacy #[id number], Partial fill upon patient request if the prescription is for a schedule II opioid drug., 155, cm,... Start Date: 05/19/22 Status: Ordered Vitamin B12 250 mcg oral tablet 1 tablet = 250 mcg, By Mouth, Daily, # 30 tablet, 0 Refills, Maintenance, 02/08/23 16:07:00 EDT, Tablet, [facility]/pharmacy #[id number], Partial fill upon [...] [address] [place] [address]- Care Team Related Persons Name: EDDIE CHAPPELL Address: home [address] [place], [place] Name: EDUARDA LEBLANC Name: DUSTY COOPER Address: [address] Address: home [address] [place] [address] [place]
--- OUTSIDE RECORDS SUMMARY | 2024-02-19 09:20 | XMS_ITS | Continuity of Care Document ---
Author Organization [facility] Address [address] [place] [address]- Care Team Providers Care Roll Forming Machine Set Up Mechanic Name Role Phone Abner Nowak MD, Glenda Cox Primary Care Physician [phone] Encounter [facility] [place] Date(s): 05/25/23 - 06/24/[address] [address]- Allergies, Adverse Reactions, Alerts No Known Allergies Immunizations Given and Recorded Vaccine Date Status Refusal Reason tetanus/diphtheria/pertussis, acel(Tdap) 01/23/23 Given Medications acetaminophen 325 mg oral capsule 2 capsule = 650 mg, By Mouth, Every 4 hours, PRN as needed for pain, # 50 tablet, 0 Refills, Maintenance, 03/18/23 18:42:00 EDT, Capsule, [facility]/pharmacy #[id number], Partial fill upon patient [...] 02/06/23 11:26:00 EDT, Route to Pharmacy Electronically, [facility]/pharmacy #[id number], Partial fill upon patient request if the prescriptio... Start Date: 02/06/23 Status: Ordered ferrous sulfate 325 mg oral enteric coated tablet See Instructions, Take one tablet By Mouth every other day., # 45 tablet, Refills 7, Tot. Refills 7, Maintenance, 12/26/22 9:02:00 EDT, Instructions Replace Required Details, Route to Pharmacy Electronically, [facility]/pharmacy #[id number], Partial fill upon charlene... Start Date: 12/26/22 Status: Ordered folic acid 1 mg oral tablet 1 mg, 1, tablet, By Mouth, Daily, # 90 tablet, Refills 2, Tot. Refills 2, Maintenance, 12/22/22 11:26:00 EDT, Route to Pharmacy Electronically, [facility]/pharmacy #[id number], Partial fill upon patient [...] 03/18/23 18:42:00 EDT, Route to Pharmacy Electronically, [facility]/pharmacy #[id number], Partial fill upon patientrequest if the prescription is for a schedule II op... Start Date: 03/18/23 Status: Ordered MiraLax oral powder for reconstitution = 17 Gm, By Mouth, Daily, dissolve in water before taking, # 255 Gm, 0 Refills, Maintenance, 02/06/23 11:26:00 EDT, REC Powder, [facility]/pharmacy #[id number], Partial fill upon patient [...] Member Role: PCP Address: Address: [address] Care Team Related Persons Name: EDDIE CHAPPELL Address: home [address] [place] [address] Name: EDUARDA LEBLANC Name: DUSTY COOPER Address: [address] Address: home [address]
--- OUTSIDE RECORDS SUMMARY | 2024-02-19 09:20 | XMS_ITS | Continuity of Care Document ---
Author Organization [facility] Address [address] [place] [address]- Care Team Providers Care Unarmed Security Officer Name Role Phone Abner Nowak MD, Glenda Cox Primary Care Physician Encounter [facility] [place] Date(s): 05/18/22 - 06/17/[address] [address]- Allergies, Adverse Reactions, Alerts No Known Allergies [...] 05/17/22 20:48:00 EST, Route to Pharmacy Electronically, [facility], Partial fill upon patient request [...] tablet, 1 Refills, Maintenance, 05/17/22 20:48:00 EST, [facility], Partial fill upon patient request if the... Start Date: 05/17/22 Status: Ordered miSOPROStol 200 mcg oral tablet See Instructions, place 2 tabs between each cheek for 30 min then swallow the rest., # 4 tablet, 1 Refills, Maintenance, 05/18/22 19:15:00 EST, [facility]/pharmacy #[id number], Partial fill upon patient request if the prescription is for a schedule II opioid drug.... Start Date: 05/18/22 Status: Ordered ondansetron 4 mg oral tablet 1 tablet = 4 mg, By Mouth, Every 8 hours, PRN Nausea & Vomiting, # 10 tablet, 0 Refills, Maintenance, 05/17/22 20:48:00 EST, Tablet, [facility], Partial fill upon patient request [...] 0 Refills, Maintenance, 05/19/22 9:13:00 EST, Tablet, [facility]/pharmacy #[id number], Partial fill upon patient request if the prescription is for a schedule II opioid drug., 155, cm,... Start Date: 05/19/22 Status: Ordered Problem List Condition Confirmation Course Effective Dates Status Health St atus Informant Dermatomyositis Confirmed Active Patient Care team information Care Team Personnel Name: Abner Nowak MD , Glenda Cox Position: Reference Physician Member Role: PCP Address: Address: [address] [place] [address]- Care Team Related Persons Name: EDDIE CHAPPELL Address: home [address] [place] [address] Name: EDUARDA LEBLANC
--- OUTSIDE RECORDS SUMMARY | 2024-02-19 09:20 | XMS_ITS | Continuity of Care Document ---
Author Organization [facility] Address [address] [place] [address]- Care Team Providers Care Case Reviewer Name Role Phone Abner Nowak MD, Glenda Cox Primary Care Physician [place] [facility] [place]12[place]20 - 12/12/20 [facility] [address] [place] [id number] Attending Physician: Keyana Simons Admitting Physician: Keyana Simons Referring Physician: [id number] Allergies, Adverse Reactions, Alerts Substance Reaction Severity [...]
--- OUTSIDE RECORDS SUMMARY | 2024-02-19 09:21 | XMS_ITS | Continuity of Care Document ---
Author Organization [facility] Address [address] [place] [address]- Care Team Providers Care Blade Boner Name Role Phone Abner Nowak MD, Glenda Cox Primary Care Physician En[facility] [place] Date(s): 05/18/22 - 06/17/[address] [address]- Allergies, Adverse Reactions, Alerts No Known Allergies [...] 05/17/22 20:48:00 EST, Route to Pharmacy Electronically, [facility], Partial fill upon [...] tablet, 1 Refills, Maintenance, 05/17/22 20:48:00 EST, [facility], Partial fill upon patient request if the... Start Date: 05/17/22 Status: Ordered miSOPROStol 200 mcg oral tablet See Instructions, place 2 tabs between each cheek for 30 min then swallow the rest., # 4 tablet, 1 Refills, Maintenance, 05/18/22 19:15:00 EST, [facility]/pharmacy #[id number], Partial fill upon patient request if the prescription is for a schedule II opioid drug.... Start Date: 05/18/22 Status: Ordered ondansetron 4 mg oral tablet 1 tablet = 4 mg, By Mouth, Every 8 hours, PRN Nausea & Vomiting, # 10 tablet, 0 Refills, Maintenance, 05/17/22 20:48:00 EST, Tablet, [facility], Partial fill upon [...] Refills, Maintenance, 05/19/22 9:13:00 EST, Tablet, [facility]/pharmacy #[id number], Partial fill upon patient request if the prescription is for a schedule II opioid drug., 155, cm,... Start Date: 05/19/22 Status: Ordered Problem List Condition Confirmation Course Effective Dates Status Health St atus Informant Dermatomyositis Confirmed Active Patient Care team information Care Team Personnel Name: Abner Nowak MD , Glenda Cox Position: Reference Physician Member Role: PCP Address: Address: [address] [place] [address]- Care Team Related Persons Name: EDDIE CHAPPELL Address: home [address] [place] [address] Name: EDUARDA LEBLANC
--- OUTSIDE RECORDS SUMMARY | 2024-02-19 09:21 | XMS_ITS | Continuity of Care Document ---
Author Organization [facility] Address [address] [place] [address]- Care Team Providers Care Kraft Mill Operator Name Role Phone Abner Nowak MD, Glenda Cox Primary Care Physician En[place] [facility] [place] Date(s): 04/12/23 - 05/18/[address] [address]- Attending Physician: Neema Freeman CNM Admitting Physician: Neema Freeman CNM Allergies, Adverse Reactions, Alerts No Known Allergies Immunizations Given and Recorded Vaccine Date Status Refusal Reason tetanus/diphtheria/pertussis, acel(Tdap) 01/23/23 Given Medications acetaminophen 325 mg oral capsule 2 capsule = 650 mg, By Mouth, Every 4 hours, PRN as needed for pain, # 50 tablet, 0 Refills, Maintenance, 03/18/23 18:42:00 EDT, Capsule, [facility]/pharmacy #[id number], Partial fill upon patient request if the prescription is for a schedule II opioid drug., 155,... Start Date: 03/18/23 Status: Ordered aspirin 81 mg oral delayed release tablet 162 mg, 2, tablet, By Mouth, Daily at bedtime, # 90 tablet, Refills 4, Tot. Refills 4, Maintenance,11/21/22 10:15:00 EDT, Route to Pharmacy Electronically, [facility]/pharmacy #[id number], Partial fill upon patient [...] 02/06/23 11:26:00 EDT, Route to Pharmacy Electronically, [facility]/pharmacy #[id number], Partial fill upon patient request if the prescriptio... Start Date: 02/06/23 Status: Ordered ferrous sulfate 325 mg oral enteric coated tablet See Instructions, Take one tablet By Mouth every other day., # 45 tablet, Refills 7, Tot. Refills 7, Maintenance, 12/26/22 9:02:00 EDT, Instructions Replace Required Details, Route to Pharmacy Electronically, [facility]/pharmacy #[id number], Partial fill upon charlene... Start Date: 12/26/22 Status: Ordered folic acid 1 mg oral tablet 1 mg, 1, tablet, By Mouth, Daily, # 90 tablet, Refills 2, Tot. Refills 2, Maintenance, 12/22/22 11:26:00 EDT, Route to Pharmacy Electronically, [facility]/pharmacy #[id number], Partial fill upon patient [...] 03/18/23 18:42:00 EDT, Route to Pharmacy Electronically, [facility]/pharmacy #[id number], Partial fill upon patientrequest [...] Refills, Maintenance, 03/20/23 15:44:00 EDT, ER Tablet, [facility]/pharmacy #[id number], Partial fill upon patient request if the prescription is for a schedule II opioid drug., 155, cm, 03/18/23 17:03:00 EDT, Heig... Start Date: 03/20/23 Status: Ordered oxyCODONE 5 mg oral tablet 10 mg, 2, tablet, By Mouth, Every 6 hours, PRN, # 12 tablet, Refills 0, Tot. Refills 0, Maintenance, for pain, 03/18/23 18:42:00 EDT, Route to Pharmacy Electronically, [facility]/pharmacy #[id number], Partial fill upon patient [...] 03/06/23 11:44:00 EDT, Route to Pharmacy Electronically, [facility]/pharmacy #[id number] Tablet,Partial fill upon patient request if the prescripti... Start Date: 03/06/23 Status: Ordered simethicone 125 mg oral tablet, chewable 1 tablet = 125 mg, Chew, 4 times a day, # 48 tablet, 0 Refills, Maintenance, 03/18/23 18:42:00 EDT,Chew Tablet, [facility]/pharmacy #[id number], Partial fill upon patient request if the prescription is for a schedule II opioid drug., 155, cm, 03/18/23 17:03:00 ED... Start Date: 03/18/23 Status: Ordered Tylenol Extra Strength 500 mg oral tablet 2 tablet = 1,000 mg, By Mouth, Every 6 hours, PRN Pain , Moderate, # 24 tablet, 0 Refills, Maintenance, 05/19/22 9:13:00 EST, Tablet, [facility]/pharmacy #[id number], Partial fill upon patient [...] Physician Member Role: PCP Address: Address: [address] [place] [address]- Care Team Related Persons Name: EDDIE CHAPPELL Address: home [address] [place] [address] Name: EDUARDA LEBLANC Name: DUSTY COOPER Address: [address] Address: home [address] [place] [address] [place]
--- OUTSIDE RECORDS SUMMARY | 2024-02-19 09:21 | XMS_ITS | Continuity of Care Document ---
Author Organization [facility] Address [address] [place] [address]- Care Team Providers Care Evening Anchor Name Role Phone Abner Nowak MD, Glenda Cox Primary Care Physician [phone] [id number] Date(s): 06/26/23 - 08/10/[address] [address] Attending Physician: Not on Staff, Attending MD Allergies, Adverse Reactions, Alerts No Known Allergies Immunizations Given and Recorded Vaccine Date Status Refusal Reason tetanus/diphtheria/pertussis, acel(Tdap) 01/23/23 Given Medications acetaminophen 325 mg oral capsule 2 capsule = 650 mg, By Mouth, Every 4 hours, PRN as needed for pain, # 50 tablet, 0 Refills, Maintenance, 03/18/23 18:42:00 EDT, Capsule, [facility]/pharmacy #[id number], Partial fill upon patient request if [...] 02/06/23 11:26:00 EDT, Route to Pharmacy Electronically, [facility][id number], Partial fill upon patient request if [...] 03/18/23 18:42:00 EDT, Route to Pharmacy Electronically, [facility][id number], Partial fill upon patientrequest if the [...] Member Role: PCP Address: Address: [address] [place] [address]- Care Team Related Persons Name: EDDIE CHAPPELL Address: home [address] [place] [address] Name: EDUARDA LEBLANC Name: DUSTY COOPER Address: [address] Address: home [address]
--- OUTSIDE RECORDS SUMMARY | 2024-02-19 09:21 | XMS_ITS | Continuity of Care Document ---
Author Organization [facility] Address [address] [place] [address]- Care Team Providers Care Assistant Banquet Manager Name Role Phone Abner Nowak MD, Glenda Cox Primary Care Physician [id number] Date(s): 01/03/23 - 05/03/[address] [address] Attending Physician: Not on Staff, Attending MD Allergies, Adverse Reactions, Alerts No Known Allergies Immunizations Given and Recorded Vaccine Date Status Refusal Reason tetanus/diphtheria/pertussis, acel(Tdap) 01/23/23 Given Medications acetaminophen 325 mg oral capsule 2 capsule = 650 mg, By Mouth, Every 4 hours, PRN as needed for pain, # 50 tablet, 0 Refills, Maintenance, 03/18/23 18:42:00 EDT, Capsule, [facility]/pharmacy #[id number], Partial fill upon patient request if [...] EDT, Route to Pharmacy Electronically, [facility]/pharmacy #[id number], Partial fill upon patient request if [...] EDT, Route to Pharmacy Electronically, [facility]/pharmacy #[id number], Partial fill upon patientrequest if the [...] Physician Member Role: PCP Address: Address: [address] [place] [address]- Care Team Related Persons Name: EDDIE CHAPPELL Address: home [address] [place] [address] Name: EDUARDA LEBLANC Name: DUSTY COOPER Address: [address] Address: home [address]
--- OUTSIDE RECORDS SUMMARY | 2024-02-19 09:21 | XMS_ITS | Continuity of Care Document ---
Author Organization [facility] Address [address] [place] [address]- Care Team Providers Care Psychiatric Assistant Name Role Phone Abner Nowak MD, Glenda Cox Primary Care Physician [phone] Encounter [facility] [place] Date(s): 05/02/22 - 06/01/22 [facility] [address] [place] [id number] Allergies, Adverse Reactions, Alerts No [...] 05/17/22 20:48:00 EST, Route to Pharmacy Electronically, [facility], Partial fill upon patient request if [...] tablet, 1 Refills, Maintenance, 05/17/22 20:48:00 EST, [facility], Partial fill upon patient request if the... Start Date: 05/17/22 Status: Ordered miSOPROStol 200 mcg oral tablet See Instructions, place 2 tabs between each cheek for 30 min then swallow the rest., # 4 tablet, 1 Refills, Maintenance, 05/18/22 19:15:00 EST, [facility]/pharmacy #[id number], Partial fill upon patient request if the prescription is for a schedule II opioid drug.... Start Date: 05/18/22 Status: Ordered ondansetron 4 mg oral tablet 1 tablet = 4 mg, By Mouth, Every 8 hours, PRN Nausea & Vomiting, # 10 tablet, 0 Refills, Maintenance, 05/17/22 20:48:00 EST, Tablet, [facility], Partial fill upon patient [...] 0 Refills, Maintenance, 05/19/22 9:13:00 EST, Tablet, [facility]/pharmacy #[id number], Partial fill upon patient request if the prescription is for a schedule II opioid drug., 155, cm,... Start Date: 05/19/22 Status: Ordered Problem List Condition Confirmation Course Effective Dates Status Health St at[facility] Informant Dermatomyositis Confirmed Active Patient Care team information Care Team Personnel Name: Abner Nowak MD , Glenda Cox Position: Reference Physician Member Role: PCP Address: Address: [address] [place] [address]- Care Team Related Persons Name: EDDIE CHAPPELL Address: home [address] [place] [address] Name: EDUARDA LEBLANC
--- OUTSIDE RECORDS SUMMARY | 2024-02-19 09:21 | XMS_ITS | Continuity of Care Document ---
Author Organization [facility] Address [address] [place] [address]- Care Team Providers Care Medical Laboratory Technical Officer Name Role Phone Abner Nowak MD, Glenda Cox Primary Care Physician [phone] Encounter [facility] [place] Date(s): 11/21/22 - 12/21/22 [facility] [address] [place] [id number] Attending Physician: Keyana Simons Admitting Physician: AdmtrKeyana Referring Physician: Admtr, Ar8 Allergies, Adverse Reactions, Alerts No Known Allergies Medications aspirin 81 mg oral delayed release tablet 162 mg, 2, tablet, By Mouth, Daily at bedtime, # 90 tablet, Refills 4, Tot. Refills 4, Maintenance,11/21/22 10:15:00 EDT, Route to Pharmacy Electronically, [facility] #[id number], Partial fill upon patient request [...] 11/21/22 10:13:00 EDT, Route to Pharmacy Electronically, [facility]/pharmacy #[id number], Partial fill upon patient request [...] 0 Refills, Maintenance, 11/23/22 15:58:00 EDT, [id number], Partial fill upon patient request if the [...] Refills, Maintenance, 05/19/22 9:13:00 EST, Tablet, [id number], Partial fill upon patient request if the [...] Physician Member Role: PCP Address: Address: [address] [place] [address]- Care Team Related Persons Name: TA EDDIE Address: home [address] [place] [address] Name: EDUARDA LEBLANC
--- OUTSIDE RECORDS SUMMARY | 2024-02-19 09:21 | XMS_ITS | Continuity of Care Document ---
Author Organization [facility] Address [address] [place] [address]- Care Team Providers Care Adult Ministries Director Name Role Phone Abner Nowak MD, Glenda Cox Primary Care Physician Encounter [facility] [place] Date(s): 10/11/22 - 11/10/[address] [address]- Allergies, Adverse Reactions, Alerts No Known Allergies [...] 05/17/22 20:48:00 EST, Route to Pharmacy Electronically, [facility], Partial fill upon patient request if the prescription is... Start Date: 05/17/22 Status: Ordered ondansetron 4 mg oral tablet 1 tablet = 4 mg, By Mouth, Every 8 hours, PRN Nausea & Vomiting, # 10 tablet, 0 Refills, Maintenance, 05/17/22 20:48:00 EST, Tablet, [facility], Partial fill upon patient request ifthe [...] Member Role: PCP Address: Address: [address] [place] [address]- Care Team Related Persons Name: EDDIE CHAPPELL Address: home [address] [place] [address] Name: EDUARDA LEBLANC
--- OUTSIDE RECORDS SUMMARY | 2024-02-19 09:21 | XMS_ITS | Continuity of Care Document ---
Author Organization [facility] Address [address] [place] [address]- Care Team Providers Care Fourdrinier Machine Operator Name Role Phone Abner Nowak MD, Glenda Cox Primary Care Physician [id number] Date[facility]s): 06/26/23 - 07/26/[address] [address] Allergies, Adverse Reactions, Alerts No Known Allergies Immunizations Given and Recorded Vaccine Date Status Refusal Reason tetanus/diphtheria/pertussis, acel(Tdap) 01/23/23 Given Medications acetaminophen 325 mg oral capsule 2 capsule = 650 mg, By Mouth, Every 4 hours, PRN as needed for pain, # 50 tablet, 0 Refills, Maintenance, 03/18/23 18:42:00 EDT, Capsule, [facility] #[id number], Partial fill upon patient request if the prescription is for a schedule II opioid drug., 155,... Start Date: 03/18/23 Status: Ordered aspirin 81 mg oral delayed release tablet 162 mg, 2, tablet, By Mouth, Daily at bedtime, # 90 tablet, Refills 4, Tot. Refills 4, Maintenance,11/21/22 10:15:00 EDT, Route to Pharmacy Electronically, [facility]/pharmacy #[id number], Partial fill upon patient request if [...] 02/06/23 11:26:00 EDT, Route to Pharmacy Electronically, [facility]acy #[id number], Partial fill upon patient request if the prescriptio... Start Date: 02/06/23 Status: Ordered ferrous sulfate 325 mg oral enteric coated tablet See Instructions, Take one tablet By Mouth every other day., # 45 tablet, Refills 7, Tot. Refills 7, Maintenance, 12/26/22 9:02:00 EDT, Instructions Replace Required Details, Route to Pharmacy Electronically, [facility]/pharmacy #[id number], Partial fill upon charlene... Start Date: 12/26/22 Status: Ordered folic acid 1 mg oral tablet 1 mg, 1, tablet, By Mouth, Daily, # 90 tablet, Refills 2, Tot. Refills 2, Maintenance, 12/22/22 11:26:00 EDT, Route to Pharmacy Electronically, [facility]/pharmacy #[id number], Partial fill upon patient request if [...] 03/18/23 18:42:00 EDT, Route to Pharmacy Electronically, [facility]/pharmacy #[id number], Partial fill upon patientrequest if the [...] Refills, Maintenance, 03/20/23 15:44:00 EDT, ER Tablet, [facility]/pharmacy #[id number], Partial fill upon patient request if the prescription is for a schedule II opioid drug., 155, cm, 03/18/23 17:03:00 EDT, Heig... Start Date: 03/20/23 Status: Ordered oxyCODONE 5 mg oral tablet 10 mg, 2, tablet, By Mouth, Every 6 hours, PRN, # 12 tablet, Refills 0, Tot. Refills 0, Maintenance, for pain, 03/18/23 18:42:00 EDT, Route to Pharmacy Electronically, [facility]/pharmacy #[id number], Partial fill upon patient request if [...] 03/06/23 11:44:00 EDT, Route to Pharmacy Electronically, [facility]/pharmacy #2071 Tablet,Partial fill upon patient request if the prescripti... Start Date: 03/06/23 Status: Ordered simethicone 125 mg oral tablet, chewable 1 tablet = 125 mg, Chew, 4 times a day, # 48 tablet, 0 Refills, Maintenance, 03/18/23 18:42:00 EDT,Chew Tablet, [facility]/pharmacy #[id number], Partial fill upon patient request if the prescription is for a schedule II opioid drug., 155, cm, 03/18/23 17:03:00 ED... Start Date: 03/18/23 Status: Ordered Tylenol Extra Strength 500 mg oral tablet 2 tablet = 1,000 mg, By Mouth, Every 6 hours, PRN Pain , Moderate, # 24 tablet, 0 Refills, Maintenance, 05/19/22 9:13:00 EST, Tablet, [facility]/pharmacy #0693, Partial fill upon patient request if [...] Address: Address: [address] [place] [address]- Care Team Related Persons Name: EDDIE CHAPPELL Address: [address] [place] [address] Name: EDUARDA LEBLANC Name: DUSTY COOPER Address: [address] Address: [address] [place] [address] [place]
--- OUTSIDE RECORDS SUMMARY | 2024-02-19 09:21 | XMS_ITS | Continuity of Care Document ---
Author Organization [facility] Address [address] [place] [address]- Care Team Providers Care Video Control Engineer Name Role Phone Abner Nowak MD, Glenda Cox Primary Care Physician En[place] [facility] [place] Date(s): 08/31/22 - 09/30/[address] [address]- Allergies, Adverse Reactions, Alerts No Known Allergies [...] 20:48:00 EST, Route to Pharmacy Electronically, [facility], Partial fill upon patient request if the prescription is... Start Date: 05/17/22 Status: Ordered ondansetron 4 mg oral tablet 1 tablet = 4 mg, By Mouth, Every 8 hours, PRN Nausea & Vomiting, # 10 tablet, 0 Refills, Maintenance, 05/17/22 20:48:00 EST, Tablet, [facility], Partial fill upon patient [...] Acute 10/08/22 14:34:00 EDT, 09/07/22 14:33:00 EDT, [id number], Partial fill upon patient request [...] 100 in lifetime) entered on: 3/23/23 Sex Patient Care team information Care Team Personnel Name: Abner Nowak MD , Glenda Cox Position: Reference Physician Member Role: PCP Address: Address: [address] [place] [address]- Care Team Related Persons Name: EDDIE CHAPPELL Address: [address] [place] [address] Name: EDUARDA LEBLANC
--- OUTSIDE RECORDS SUMMARY | 2024-02-19 09:21 | XMS_ITS | Continuity of Care Document ---
Author Organization [facility] Address [address] [place] [address]- Care Team Providers Care Side Sawyer Name Role Phone Abner Nowak MD, Glenda Cox Primary Care Physician [place] [facility] [place]s): 04/26/22 - 05/26/22 [facility] [address] [place] [address] Allergies, Adverse Reactions, Alerts [...] 05/17/22 20:48:00 EST, Route to Pharmacy Electronically, [facility], Partial fill upon patient [...] tablet, 1 Refills, Maintenance, 05/17/22 20:48:00 EST, [facility], Partial fill upon patient [...] 0 Refills, Maintenance, 05/17/22 20:48:00 EST, Tablet, [facility], Partial fill upon patient [...] Reference Physician Member Role: PCP Address: Address: [address] [place] [address]- [place] Care Team Related Persons Name: TA EDDIE Address: home [address] [place] [address] Name: EDUARDA LEBLANC
--- OUTSIDE RECORDS SUMMARY | 2024-02-19 09:21 | XMS_ITS | Continuity of Care Document ---
Author Organization [facility] Address [address] [place] [address]- Care Team Providers Care Adolescent Medicine Specialist Name Role Phone Abner Nowak MD, Glenda Cox Primary Care Physician [phone] [place] [facility] Date(s): 03/19/23 - 05/10/[address] [address]- Attending Physician: Not on Staff, Attending MD Allergies, Adverse Reactions, Alerts No Known Allergies Immunizations Given and Recorded Vaccine Date Status Refusal Reason tetanus/diphtheria/pertussis, acel(Tdap) 01/23/23 Given Medications acetaminophen 325 mg oral capsule 2 capsule = 650 mg, By Mouth, Every 4 hours, PRN as needed for pain, # 50 tablet, 0 Refills, Maintenance, 03/18/23 18:42:00 EDT, Capsule, [facility]/pharmacy #[id number], Partial fill upon patient request [...] 02/06/23 11:26:00 EDT, Route to Pharmacy Electronically, [facility]/pharmacy #[id number], Partial fill upon patient request if the prescriptio... Start Date: 02/06/23 Status: Ordered ferrous sulfate 325 mg oral enteric coated tablet See Instructions, Take one tablet By Mouth every other day., # 45 tablet, Refills 7, Tot. Refills 7, Maintenance, 12/26/22 9:02:00 EDT, Instructions Replace Required Details, Route to Pharmacy Electronically, [facility]/pharmacy #[id number], Partial fill upon charlene... Start Date: 12/26/22 Status: Ordered folic acid 1 mg oral tablet 1 mg, 1, tablet, By Mouth, Daily, # 90 tablet, Refills 2, Tot. Refills 2, Maintenance, 12/22/22 11:26:00 EDT, Route to Pharmacy Electronically, [facility]/pharmacy #[id number], Partial fill upon patient request [...] 03/18/23 18:42:00 EDT, Route to Pharmacy Electronically, [facility]/pharmacy #[id number], Partial fill upon patientrequest if the prescription is for a schedule II op... Start Date: 03/18/23 Status: Ordered MiraLax oral powder for reconstitution = 17 Gm, By Mouth, Daily, dissolve in water before taking, # 255 Gm, 0 Refills, Maintenance, 02/06/23 11:26:00 EDT, REC Powder, [facility]/pharmacy #[id number], Partial fill upon patient request [...] 03/18/23 18:42:00 EDT, Route to Pharmacy Electronically, [facility]/pharmacy #[id number], Partial fill upon patient request [...] 03/06/23 11:44:00 EDT, Route to Pharmacy Electronically, [facility]/pharmacy #2071 Tablet,Partial fill upon patient request [...] 0 Refills, Maintenance, 02/08/23 16:07:00 EDT, Tablet, [facility]/pharmacy #[id number], Partial fill upon patient request [...] Physician Member Role: PCP Address: Address: [address] [place] [address]- Care Team Related Persons Name: EDDIE CHAPPELL Address: home [address] [place] [address] Name: EDUARDA LEBLANC Name: DUSTY COOPER Address: [address] Address: [address] [place] [address] [place]
[2024-02-19 10:39] VITALS: BP 158/70; PULSE 87; RESP 16; TEMP 36.8; O2SAT 99
== END 2024-02-19 10:41 | disposition home or self-care (01) ==
PROVIDERS: Emergency Provider Emergency Medicine
DX: N63.11 Unspecified lump in the right breast, upper outer quadrant (principal); N64.4 Mastodynia
CPT/HCPCS: 99282

== ENCOUNTER 2024-03-31 12:19 | Emergency (ER) | payer OTHER, SELFPAY ==
--- NOTE | 2024-03-31 | ECG_ITS ---
Test Reason : cp Blood Pressure : / mmHG Vent. Rate : 084 BPM Atrial Rate : 084 BPM P-R Int : 164 ms QRS Dur : 080 ms QT Int : 384 ms P-R-T Axes : 038 013 -24 degrees QTc Int : 453 ms Normal sinus rhythm Nonspecific ST and T wave abnormality Abnormal ECG No previous ECGs available Referred By: Generic ED Physician Electronically Signed By:SONIA RAUSCH
--- NOTE | ~2024-03-31 | XR_ITS ---
EXAMINATION: XR CHEST 2 VIEWS CLINICAL INFORMATION: Chest pain. COMPARISON: None. TECHNIQUE: Frontal and lateral views of the chest were obtained. FINDINGS: The heart, great vessels, pulmonary vasculature and mediastinum are normal. The lungs show no focal infiltrate, effusion or pneumothorax. There is no acute osseous abnormality. XR/XR chest 2V IMPRESSION: No active cardiopulmonary disease. Electronically signed by: Carlos Hanson MD 03/31/2024 02:30 PM EDT RP
[2024-03-31 12:27] VITALS: BP 158/110; PULSE 88; RESP 20; TEMP 37; O2SAT 99; BMI 21.0
--- NOTE | 2024-03-31 12:30 | ED_ITS ---
HPI - Chest Pain General Chief Complaint: Chest Pain Stated Complaint: Chest pain/HBP Related Data Allergies Allergy/AdvReac Type Severity Reaction Status Date / Time No Known Allergies Allergy Verified 03/31/24 12:29 [No Known Allergies*] [facility] Social History Social History Advance Directives: No Do you have a plan to hurt others: No Plan Physical Exam 2 Vital Signs: Vital Signs: Last Vital Signs Temp 98.6 F 03/31/24 12:27 Pulse 88 03/31/24 12:27 Resp 20 03/31/24 12:27 BP 158/110 H 03/31/24 12:27 Pulse Ox 99 03/31/24 12:27 O2 Del Method Nasal Cannula 03/31/24 12:27 BMI result Body Mass Index 21.0 Course Course Course Narrative: This is an RME: Additional HPI, ROS, PE not included below will be deferred to primary provider. RME assessment and note performed by: Christine Madison PA-C This is a 15-fzle[age]kjz-female, with a hx of pre-eclampsia, who presents to the ER with complaints of high blood pressure. Reports that she was getting a dental cleaning and her BP was elevated. Reporting some chest pain, reports that she feels as though she just ran miles when she woke up. Plan: labs, EKG Reevaluation(s) Reevaluation #1: Patient left without completing treatment. Medical Decision Making Lab Data 03/31/24 13:01 03/31/24 13:01 Labs: Lab Results 03/31/24 Range/Units 13:01 WBC 4.3 L (4.8-10.8) X10*3/uL RBC 4.21 (4.20-5.50) X10*6/uL Hgb 12.1 (12.0-16.0) g/dl Hct 36.5 L (37.0-47.0) % MCV 86.7 (80.0-98.0) fL MCH 28.7 (27.0-33.0) pg MCHC 33.2 (31.0-35.0) g/dl RDW 13.6 (11.0-16.0) % Plt Count 212 (160-400) X10*3/uL MPV 10.1 (9.4-12.3) fL Immature Gran % (Auto) 0.5 H (0.0-0.4) % Neut % (Auto) 70.7 (45-73) % Lymph % (Auto) 18.5 L (20-40) % [place] % (Auto) 5.4 (2-11) % Eos % (Auto) 4.7 H (0-4) % Baso % (Auto) 0.2 (0-2) % Lymph # (Auto) 0.8 L (1.2-4.9) X10*3/uL [place] # (Auto) 0.2 (0.1-1.2) X10*3/uL Eos # (Auto) 0.2 (0.0-0.4) X10*3/uL Baso # (Auto) 0.0 (0.0-0.2) X10*3/uL Abs Immat Gran (auto) 0.02 (0.00-0.03) X10*3/uL Absolute Neuts (auto) 3.0 (2.0-8.3) x10*3/uL Absolute Nucleated RBC 0.000 (0.0-0.012) X10*3/uL Nucleated RBC % (auto) 0.0 (0.0-0.2) /100WBC PT 12.5 H (10.9-12.4) SEC INR 1.1 (0.9-1.1) Sodium 139 (135-145) mmol/L Potassium 3.7 (3.3-5.1) mmol/L Chloride 106 (96-108) mmol/L Carbon Dioxide 26 (22-29) mmol/L Anion Gap 11 L (12-20) BUN 11 (9-16) mg/dL Creatinine 0.59 (0.5-1.4) mg/dL Estim Creat Clear Calc 130.9 Estimated GFR > 60 Random Glucose 102 (60-115) mg/dL Calcium 9.6 (8.4-10.2) mg/dL Total Bilirubin 1.1 H (0.0-1.0) mg/dL AST 19 (5-31) U/L ALT 12 (0-31) U/L Alkaline Phosphatase 49 (39-117) U/L Troponin I High Sens 4.0 (<3.5-17.0) ng/L Total Protein 8.2 H (6.5-8.0) g/dL Albumin 4.4 (3.5-5.0) g/dL Discharge Plan Discharge Clinical Impression: Chest pain Patient Disposition: Left W/O Completing Treatment Discharge Date/Time: 03/31/24 14:31
[2024-03-31 13:05] LABS: MANUAL DIFF FLAG NO
[2024-03-31 13:07] LABS: Basophils Percent Auto 0.2 % (0-2); Eosinophils Absolute Auto 0.2 X10*3/uL (0.0-0.4); Eosinophils Percent Auto 4.7 % (0-4); Hematocrit 36.5 % (37.0-47.0); Hemoglobin 12.1 g/dl (12.0-16.0); Imm Gran Abs Auto 0.02 X10*3/uL (0.00-0.03); Imm Gran Pct Auto 0.5 % (0.0-0.4); Lymphocytes Absolute Auto 0.8 X10*3/uL (1.2-4.9); Lymphocytes Percent Auto 18.5 % (20-40); Mean Corpuscular HGB Conc 33.2 g/dl (31.0-35.0); Mean Corpuscular Hemoglobin 28.7 pg (27.0-33.0); Mean Corpuscular Volume 86.7 fL (80.0-98.0); Mean Platelet Volume 10.1 fL (9.4-12.3); Monocytes Absolute Auto 0.2 X10*3/uL (0.1-1.2); Monocytes Percent Auto 5.4 % (2-11); Neutrophils Percent Auto 70.7 % (45-73); Platelet Count 212 X10*3/uL (160-400); Red Blood Count 4.21 X10*6/uL (4.20-5.50); Red Cell Distribution Width 13.6 % (11.0-16.0); White Blood Count 4.3 X10*3/uL (4.8-10.8)
[2024-03-31 13:11] LABS: INTERNATIONAL NORM RATIO 1.1 (0.9-1.1); Prothrombin Time 12.5 SEC (10.9-12.4)
[2024-03-31 13:25] LABS: Alanine Aminotransferase 12 U/L (0-31); Albumin Level 4.4 g/dL (3.5-5.0); Alkaline Phosphatase 49 U/L (39-117); Anion Gap 11 (12-20); Aspartate Amino Transferase 19 U/L (5-31); Bilirubin Total 1.1 mg/dL (0.0-1.0); Blood Urea Nitrogen 11 mg/dL (9-16); Calcium 9.6 mg/dL (8.4-10.2); Carbon Dioxide 26 mmol/L (22-29); Chloride 106 mmol/L (96-108); Creatinine Clr Calc Pharmacy 130.9; Estimated Glomerular Filt Rate > 60; Glucose Random 102 mg/dL (60-115); Potassium 3.7 mmol/L (3.3-5.1); Sodium 139 mmol/L (135-145); Total Protein 8.2 g/dL (6.5-8.0)
--- OUTSIDE RECORDS SUMMARY | 2024-03-31 14:33 | XMS_ITS | Continuity of Care Document ---
Author Organization [facility] Address [address] [place] [address]- Care Team Providers Care Gauger Chief Delivery Name Role Phone Abner Nowak MD, Glenda Cox Primary Care Physician [phone] Encounter [facility] Date(s): 02/29/24 - 03/30/[address] [address] Attending Physician: AdmKeyana gonzalez Admitting Physician: AdmtrKeyana Referring Physician: Admtr, [id number] [...] 03/06/23 11:44:00 EDT, Route to Pharmacy Electronically, [facility]/pharmacy #[id number] Tablet,Partial fill upon patient [...] 05/19/22 9:13:00 EST, Tablet, [facility]/pharmacy #[id number], Partial fill upon patient request if the [...] of preeclampsia, prior , currently Confirmed Active Request for sterilization Confirmed Active Social History Social History Type Response Smoking Status Never (less than 100 in lifetime) entered on: 09/07/22 Sex Patient Care team information Care Team Personnel Name: Abner Nowak MD , Glenda Cox Position: Reference Physician Member Role: PCP Address: Address: [address] [place], [place] [address] Care Team Related Persons Name: EDDIE CHAPPELL Address: home [address] [place], [place] Name: EDUARDA LEBLANC Name: DUSTY COOPER Address: [address] Address: home [address]
--- OUTSIDE RECORDS SUMMARY | 2024-03-31 14:33 | XMS_ITS | Continuity of Care Document ---
Author Organization [facility] Address [address] [place] [address]- Care Team Providers Care Senior Svp Name Role Phone Abner Nowak MD, Glenda Cox Primary Care Physician [id number] Date(s): 02/19/24 - 03/20/[address] [address] Allergies, Adverse Reactions, Alerts No Known Allergies Immunizations Given and Recorded Vaccine Date Status Refusal Reason tetanus/diphtheria/pertussis, acel(Tdap) 01/23/23 Given Medications acetaminophen 325 mg oral capsule 2 capsule = 650 mg, By Mouth, Every 4 hours, PRN as needed for pain, # 50 tablet, 0 Refills, Maintenance, 03/18/23 18:42:00 EDT, Capsule, [facility]/pharmacy #[id number], Partial fill upon patient [...] 02/06/23 11:26:00 EDT, Route to Pharmacy Electronically, [facility]/pharmacy #[id number], Partial fill upon patient request if the prescriptio... Start Date: 02/06/23 Status: Ordered ferrous sulfate 325 mg oral enteric coated tablet See Instructions, Take one tablet By Mouth every other day., # 45 tablet, Refills 7, Tot. Refills 7, Maintenance, 12/26/22 9:02:00 EDT, Instructions Replace Required Details, Route to Pharmacy Electronically, [facility]/pharmacy #[id number], Partial fill upon charlene... Start Date: 12/26/22 Status: Ordered folic acid 1 mg oral tablet 1 mg, 1, tablet, By Mouth, Daily, # 90 tablet, Refills 2, Tot. Refills 2, Maintenance, 12/22/22 11:26:00 EDT, Route to Pharmacy Electronically, [facility]/pharmacy #[id number], Partial fill upon patient [...] 03/18/23 18:42:00 EDT, Route to Pharmacy Electronically, [facility]/pharmacy #[id number], Partial fill upon patientrequest if the prescription is for a schedule II op... Start Date: 03/18/23 Status: Ordered MiraLax oral powder for reconstitution = 17 Gm, By Mouth, Daily, dissolve in water before taking, # 255 Gm, 0 Refills, Maintenance, 02/06/23 11:26:00 EDT, REC Powder, [facility]/pharmacy #[id number], Partial fill upon patient [...] 03/18/23 18:42:00 EDT, Route to Pharmacy Electronically, [facility]/pharmacy #[id number], Partial fill upon patient [...] 03/06/23 11:44:00 EDT, Route to Pharmacy Electronically, [facility]/pharmacy #[id number] Tablet,Partial fill upon patient [...] 0 Refills, Maintenance, 05/19/22 9:13:00 EST, Tablet, [facility]/pharmacy #[id number], Partial fill upon patient request if the prescription is for a schedule II opioid drug., 155, cm,... Start Date: 05/19/22 Status: Ordered Vitamin B12 250 mcg oral tablet 1 tablet = 250 mcg, By Mouth, Daily, # 30 tablet, 0 Refills, Maintenance, 02/08/23 16:07:00 EDT, Tablet, [facility]/pharmacy #[id number], Partial fill upon patient [...] Address: [address] [place] [address]- Care Team Related Persons Name: EDDIE CHAPPELL Address: home [address] [place] [address] Name: EDUARDA LEBLANC Name: DUSTY COOPER Address: [address] Address: home [address]
== END 2024-03-31 14:31 | disposition left against medical advice (07) ==
PROVIDERS: Physician Assistant Medical; Emergency Provider Emergency Medicine
DX: R07.89 Other chest pain (principal); Z79.899 Other long term (current) drug therapy
CPT/HCPCS: 36415; 71046; 80053; 84484; 85025; 85610; 93005; 99283

== ENCOUNTER → 2024-03-31 12:19 | Outpatient (BNV) | payer OTHER, SELFPAY | PROVIDERS: Emergency Provider Emergency Medicine; Visit Provider Internal Medicine | DX: R07.9 Chest pain, unspecified (principal) | CPT/HCPCS: 93010 ==

== ENCOUNTER 2024-07-17 13:08 | Outpatient (REF) | payer OTHER, SELFPAY ==
[2024-07-17 17:36] LABS: MANUAL DIFF FLAG NO
[2024-07-17 17:47] LABS: Basophils Percent Auto 0.2 % (0-2); Eosinophils Absolute Auto 0.3 X10*3/uL (0.0-0.4); Eosinophils Percent Auto 5.6 % (0-4); Hematocrit 34.3 % (37.0-47.0); Hemoglobin 11.6 g/dl (12.0-16.0); Imm Gran Abs Auto 0.02 X10*3/uL (0.00-0.03); Imm Gran Pct Auto 0.4 % (0.0-0.4); Lymphocytes Absolute Auto 0.8 X10*3/uL (1.2-4.9); Lymphocytes Percent Auto 16.4 % (20-40); Mean Corpuscular HGB Conc 33.8 g/dl (31.0-35.0); Mean Corpuscular Hemoglobin 29.4 pg (27.0-33.0); Mean Corpuscular Volume 86.8 fL (80.0-98.0); Monocytes Absolute Auto 0.3 X10*3/uL (0.1-1.2); Monocytes Percent Auto 6.9 % (2-11); Neutrophils Absolute Auto 3.3 x10*3/uL (2.0-8.3); Neutrophils Percent Auto 70.5 % (45-73); Platelet Count 215 X10*3/uL (160-400); Red Blood Count 3.95 X10*6/uL (4.20-5.50); Red Cell Distribution Width 13.4 % (11.0-16.0); White Blood Count 4.6 X10*3/uL (4.8-10.8)
--- OUTSIDE RECORDS SUMMARY | 2024-07-17 17:52 | XMS_ITS | Clinical Summary ---
Author Organization [employer] Address [address] [facility] [address] [place] [address] Care Team Providers Care Electrolytic De Scaler Name Role Phone Unavailable Primary Care Provider [...] patient's age to complete this topic [place] [address] [place] [address] ACO
--- OUTSIDE RECORDS SUMMARY | 2024-07-17 17:52 | XMS_ITS | Clinical Summary ---
Author Organization [facility] ity Address [address] [place] [address] Care Team Providers Care Dust Control Engineer Name Role Phone Glenda Nowak MD Primary Care Provider [phone] Surgical History Surgery Date Site/Laterality Comments SECTION 2015 PROCEDURE: [place] DELIVERY ONLY; COMMENT: P [facility]CS WISDOM TOOTH EXTRACTION PROCEDURE: HISTORICAL WISDOM TEETH EXTRACTION Medical History Medical History Date Comments Anemia 2015 DX:Anemia; COMME NT: during iron BID Chlamydia contact, treated 05/2018 DX:Ch lamydia contact, treated Chlamydia 2013 DX:Chlamydia wound infection 09/22/2019 DX:Cesa rean wound infection [facility]erm[facility]ositis ([facility]) 04/06/2021 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
[2024-07-17 17:55] LABS: Alanine Aminotransferase 9 U/L (0-31); Aspartate Amino Transferase 23 U/L (5-31); C Reactive Protein 0.21 mg/dL (< or = 0.50); Estimated Glomerular Filt Rate > 60
[2024-07-17 18:22] LABS: Erythrocyte Sedimentation Rate 14 MM/HR (0-20)
[2024-07-18 04:29] LABS: HBS Num1 2.72 mIU/mL (0-7.99); HBc Num1 0.17 S/CO (0.00-0.79); HBsAGNum1 0.35 S/CO (0.00-0.99); Hepatitis B Core Antibody Nonreactive (Nonreactive); Hepatitis B Surface Antigen Negative (Negative); ~HepC Num1 0.19 S/CO (0.00-0.79); ~Hepatitis B Surface Antibody NONREACTIVE (Nonreactive); ~Hepatitis C Antibody Nonreactive (Nonreactive)
[2024-07-20 19:59] LABS: TS Negative Control Passed; TS Panel A 0; TS Panel B 0; TS Positive Control Passed; TSpotTB Negative (Negative)
[2024-07-22 21:29] LABS: Aldolase 4.7 U/L (<=8.1)
[2024-07-25 18:39] LABS: Glucose-6-Phosphate Dehydrogen 14.7 U/g Hgb (7.0-20.5)
== END 2024-07-17 13:09 | disposition home or self-care (01) ==
LOC: HO.HKASLDS 13:08
PROVIDERS: Visit Provider Internal Medicine Rheumatology
DX: M33.13 Other dermatomyositis without myopathy (principal); Z79.60 Long term (current) use of unspecified immunomodulators and immunosuppressants; Z79.899 Other long term (current) drug therapy
CPT/HCPCS: 36415; 82085; 82550; 82565; 82955; 84450; 84460; 85025; 85652; 86140; 86481; 86704; 86706; 86803; 87340; 99212

== ENCOUNTER 2024-07-17 13:08 | Outpatient (AMB) | payer OTHER, SELFPAY ==
[2024-07-17 13:12] VITALS: BP 132/82; PULSE 92; O2SAT 100; BMI 24.7
--- NOTE | 2024-07-17 13:12 | A.OFFVIS_ITS ---
Vital Signs 07/17/24 13:12 Height 5 ft 6 in Weight 153 lb 2 oz BMI 24.7 BP 132/82 Blood Pressure Location Lt brachial Position Sitting Pulse 92 Pulse Source Pulse Oximeter Pulse Oximetry (%) 100 Oxygen Delivery Method Room Air Intake Visit Reasons: Auto immune Intake Note: Patient presents today for follow up on dermatomyositis. She was last seen at [facility] with Dr. Timmons on 03/16/2023. Patient states that she is taking no medications at this time. Allergies hydroxychloroquine Adverse Reaction (Mild, Verified 07/18/24 10:15) nausea, vomiting HPI HPI Auto immune: Details: She has not had DMARD treatment since last . She has 3 children with the last one being 1 years ago. Rash is uncontrolled affecting face, ears. She is uncontrolled pruritus in her ears. She is constantly using Q-tips in her ears. She has developed pain in her left ear. She denies weakness, dysphagia, dyspnea or fevers. No recent viral infection. She had a visit in the last 6 months with Dermatology who prescribed her topical steroid for her skin rash. She is applying the topical steroid without benefit. [facility] Medical History delivery delivered Dyspnea Dermatomyositis Surgical History History of wisdom tooth extraction History of 3 sections Family History Father Rheumatoid arthritis Mother Rheumatoid arthritis Social History Household Members: Family Housing: Apartment Alcohol intake: never Patient Tobacco Use Status: Never used Tobacco e-Cigarette/Vaping Use: Never Used Second Hand Smoke Exposure: No Substance Use Type: Marijuana service: No Current occupational status: employed Current occupation: [employer] Cognitive needs: No Hearing needs: No Vision needs: No Physical Exam Vital Signs: Last Vital Signs Pulse 92 07/17/24 13:12 BP 132/82 07/17/24 13:12 Pulse Ox 100 07/17/24 13:12 Oxygen Delivery Method Room Air 07/17/24 13:12 BMI result Body Mass Index 24.7 Const Other: General: Comfortable CVS: RRR Respiratory: clear to auscultation bilaterally. Good respiratory effort Skin: Hyperpigmentation with scales on pinna and external ear canal, hyperpigmented lesions with slight erythema on extremities, hands and trunk. Digital ulceration present on digits 2nd and 3rd right hand. She has a scab on her scalp. She has soft tissue swelling around right eye. MSK: Tender to palpate PIPs bilateral. Weak wood heel fitter machine. Shoulder abduction 160 degrees bilateral. Limited full internal and external rotation of bilateral shoulders due to pain. Power 5/5 upper extremities. Power 3/5 lower extremities. Left leg is swollen more than right leg. Assessment & Plan Assessment & Plan (1) Dermatomyositis: Comment: Uncontrolled cutaneous disease with new development of subcutaneous edema (rare) with a weakness of lower extremities left worse than right. The new development of subcutaneous edema is concerning as they can be rapidly progressive. We discussed importance of medical management with compliance of immunosuppressive therapy to control her disease. She has had a history of noncompliance in the past. We discussed options for treatment including oral agents and IV agents. Discussed side effects, benefits and drug monitoring. Answered patient's questions to her satisfaction. Rheumatology history: She initially presented with cutaneous disease without myopathy early 2019 when she was 6 months . She then developed muscle weakness after . CK ordered by Dermatology 01/05/2020 after was noted to be mildly elevated at 304. She had left quadricep muscle biopsy, which was negative. 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 HCQ 03/2020-05/2021, noncompliant with MMF. MTX 04/2020-04/2022 discontinued due to , which she miscarried. Relapse disease and again 09/2022. Restarted hydroxychloroquine and azathioprine 10/2022 but she was lost to follow-up. Code(s): M33.13 - Other dermatomyositis without myopathy Category: Medical Plan: Baseline labs to assess disease activity and prior to starting DMARD therapy ordered Prednisone 40 mg daily started Return to clinic in 2 weeks for close follow-up After lab results are back, I will send prescription for hydroxychloroquine 300 mg daily and mycophenolate 500 mg twice a day. She will need labs a month after starting these medications: CBC, creatinine, AST, ALT, aldolase, CK, ESR, and CRP. (2) Other [facility] (current) drug therapy: Code(s): Z79.899 - Other terminal carman (current) drug therapy Category: Medical Plan: See above Orders: Orders Alanine Aminotransferase 07/17/24 Z79.60 - termite control servicer (current) use of unspecified immunomodulators and immunosuppressants Creatinine 07/17/24 Z79.60 - senior care (current) use of unspecified immunomodulators and immunosuppressants Erythrocyte Sedimentation Rate 07/17/24 M33.13 - Other dermatomyositis without myopathy Bcrpqog-7-Aqzimnwxo Dehydrogen 07/17/24 M33.13 - Other dermatomyositis without myopathy Hepatitis B,C Profile 07/17/24 M33.13 - Other dermatomyositis without myopathy T Spot TB 07/17/24 M33.13 - Other dermatomyositis without myopathy Creatine Kinase Total 07/17/24 M33.13 - Other dermatomyositis without myopathy Aspartate Amino Transferase 07/17/24 Z79.60 - senior care (current) use of unspecified immunomodulators and immunosuppressants Complete Blood Count Auto Diff 07/17/24 Z79.60 - termite control servicer (current) use of unspecified immunomodulators and immunosuppressants C Reactive Protein 07/17/24 M33.13 - Other dermatomyositis without myopathy Aldolase 07/17/24 M33.13 - Other dermatomyositis without myopathy Medications: New prednisone Take with food 40 mg (2 x 20 mg) PO DAILY 60 tabs 0RF 30 days Coding Level of Care Code Est Pt Level 4 (64880) Complex EM visit Add On G2211 Diagnoses Dermatomyositis M33.13 Other terminal carman (current) drug therapy Z79.899
--- OUTSIDE RECORDS SUMMARY | 2024-07-17 16:56 | XMS_ITS | Clinical Summary ---
Author Organization [facility] ity Address [address] [place] [address] Care Team Providers Care Long Wall Shear Operator Name Role Phone Glenda Nowak MD Primary Care Provider [phone] Surgical History Surgery Date Site/Laterality Comments SECTION 2015 PROCEDURE: [place]; COMMENT: P [facility] WISDOM TOOTH EXTRACTION PROCEDURE: HISTORICAL WISDOM TEETH EXTRACTION Medical History Medical History Date Comments Anemia 2015 DX:Anemia; COMME NT: during iron BID Chlamydia contact, treated 05/2018 DX:Ch lamydia contact, treated Chlamydia 2013 DX:Chlamydia wound infection 09/22/2019 DX:Cesa rean wound infection Dermatomyositis ([facility]) 04/06/2021 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[facility]) Family History Medical History Relation Name Comments Arthritis Father Arthritis Maternal Grandmother Diabetes Maternal Grandmother Hypertension Maternal Grandmother Stroke Maternal Grandmother Arthritis Mother Hypertension Mother Breast cancer Other cousin Arthritis Paternal Grandmother Stroke Paternal Grandmother Relation Name Status Comments Father Maternal Grandmother Mother Other cousin Alive Paternal Grandmother Social History Tobacco Use Types Packs/Day Years Used Date Smoking Tobacco: Never Smokeless Tobacco: Never Alcohol Use Standard Drinks/Week Comments No 0 (1 standard drink = 0.6 oz pur e alcohol) Sex and Gender Information Value Date Recorded Sex Assigned at Not on file Gender Identity Not on file Sexual Orientation Not on file Obstetrics History Last Filed Vital Signs Vital Sign Reading Time Taken Comments Blood Pressure 114/70 11/16/2021 10:15 AM EDT Pulse 68 11/16/2021 10:15 AM EDT Temperature - - Respiratory Rate - - Oxygen Saturation - - Inhaled Oxygen Concentration - - Weight 68.9 kg (152 lb) 11/16/2021 10:15 AM EDT Height 154.9 cm (5' 1 ) 11/16/2021 10:15 AM EDT Body Mass Index 28.72 11/16/2021 10:15 AM EDT Plan of Treatment Health Maintenance Due Date Last Done Comments COVID-19 Vaccine (#1) 08/22/1999 Hepatitis B Vaccines (2 of 3 - Hep B Twinrix 3-dose series) 09/11/2016 08/14/2016 HPV Vaccines (2 - 3-dose series) 01/30/2018 01/02/2018 Cervical Cancer Screening: P ap Smear 07/09/2021 07/09/2018, 07/09/2018, 08/08/2017 Depression Screening 05/21/2022 HIV Screening 05/21/2022 Hepatitis C Screening 05/21/2022 Social Influencers of Health Screening 05/21/2022 Influenza Vaccine (#1) 2024 DTaP,Tdap,and Td Vaccines (2 - Td or Tdap) 06/19/2029 06/19/2019 Hepatitis A Vaccines Aged Out 08/14/2016 No long er eligible based on patient's age to complete this topic HIB Vaccines Aged Out No longer eligi ble based on patient's age to complete this topic IPV Vaccines Aged Out No longer eligi ble based on patient's age to complete this topic MMR Vaccines Aged Out No longer eligi ble based on patient's age to complete this topic Meningococcal ACWY Vaccine Aged Out N o longer eligible based on patient's age to complete this topic Pneumococcal Vaccine: Pediatrics (0 to 5 Years) and At-Risk Patients (6 to 64 Years) Aged Out No longer eligible b ased on patient's age to complete this topic RSV Immunization Patients Under 20 months Aged Out No longer eligible b ased on patient's age to complete this topic Varicella Vaccines Aged Out No longer eligible based on patient's age to complete this topic Procedures Procedure Name Priority Date/Time Associated Diagnosis Comments PAP SMEAR Routine 07/09/2018 from Last 3 Months or Most Recently Relevant to Health Maintenance Results * Pap smear (07/09/2018) 07/09/2018 Narrative HISTORICAL TESTING LAB RESULTING AGENCY - 07/12/2018 9:54 AM EST [id number] RESULTS OF GEN-PROBE APTIMA COMBO 2 ASSAY CHLAMYDIA: ?NEGATIVE N. GONORRHOEAE: ? NEGATIVE YENI LINN M.D. , PATHOLOGIST (CASE ELECTRONICALLY SIGNED 07 12 2018) CLINICAL INFORMATION: LMP 07/02/18, Z12.4 N76.0 ACUTE VAGINITIS SOURCE: THINPREP PAP FOR CT/GC GROSS DESCRIPTION: THINPREP VIAL RECEIVED. PHYSICIANS CATHY BAER Cathy Baer CNM LAB CYTOLOGY ORDERAB LES HISTORICAL TESTING LAB RESULTING AGENCY from Last 3 Months or Most Recently Relevant to Health Maintenance Care Teams Long Wall Shear Operator Relationship Specialty Start Date End Date Glenda Nowak MD [address] [place] [address] , [address] [facility] Physician Associ D/B/A: [facility] MATTHEW Galindo PCP - General Internal Medicine 03/19/19
--- OUTSIDE RECORDS SUMMARY | 2024-07-17 16:56 | XMS_ITS | Clinical Summary ---
Author Organization [employer] Address [address] [facility] [address] [place] [address] Care Team Providers Care Master Scheduler Name Role Phone Unavailable Primary Care Provider Unavailabl e Immunizations Name Administration Dates Next Due Pfizer Covid-19 Vaccine 12+ Bivalent 07/14/2022 Social History Tobacco Use Types Packs/Day Years Used Date Smoking Tobacco: Never Assessed Comments Unknown Sex and Gender Information Value Date Recorded Sex Assigned at Female 04/17/2022 10:16 AM EDT Legal Sex Female 10:16 AM EDT Gender Identity Female 07/14/2022 2:58 PM EST Sexual Orientation Straight 07/14/2022 2: 58 PM EST Plan of Treatment Health Maintenance Due Date Last Done Comments Depression Screening 1994 HIV Screening 1994 SDOH Screening 1994 Alcohol/Substance Use Screening 2006 Tobacco Screening 2006 Family Planning (PISQ) 2009 Hepatitis C Screening 2012 Pap Smear 08/22/2015 COVID-19 Vaccine ( season) 2024 07/14/2022, 06/15/2021, 07/14/2020, Additional history exists Influenza Vaccine (#1) 2024 , 03/18/2020, 02/29/2016, Additional history exists DTaP/Tdap/Td Vaccines (9 - Td or Tdap) 06/19/2029 06/19/2019, 05/18/2016, 04/29/2007, Additional history exists Zoster Vaccines (1 of 2) 2044 RSV Patients and Patients Aged 60 years or older (1 - 1-dose 75+ series) 2069 HIB Vaccines Completed 01/21/1996, 08/1994, 01/18/1995, Additional history exists IPV Vaccines Completed 05/02/1999, 08/1994, 01/18/1995, Additional history exists Meningococcal Vaccine Aged Out 03/05/2008 No louie pina eligible based on patient's age to complete this topic Hepatitis A Vaccines Aged Out 08/14/2016 No long er eligible based on patient's age to complete this topic Hepatitis B Vaccines Completed 08/14/2016, 04/25/2010, 03/20/1995, Additional history exists HPV Vaccines Completed 01/02/2018, 02/16, 04/29/2007, Additional history exists Pneumococcal Vaccine: Pediatrics (0 to 5 Years) and At-Risk Patients (6 to 49) Years) Aged Out No longer eligible based on patient's age to complete this topic RSV under 20 months Aged Out No longe r eligible based on patient's age to complete this topic Rotavirus Vaccines Aged Out No longer eligible based on patient's age to complete this topic [place] [address] [place] [address] ACO
== END 2024-07-17 13:54 | disposition home or self-care (01) ==
PROVIDERS: Visit Provider Internal Medicine Rheumatology
DX: M33.13 Other dermatomyositis without myopathy (principal); Z79.899 Other long term (current) drug therapy
CPT/HCPCS: 99214; G2211

== ENCOUNTER 2024-07-18 10:01 | Outpatient (AMB) | payer OTHER, SELFPAY ==
--- NOTE | 2024-07-18 10:04 | MHC.PC.OV ---
Vital Signs 07/18/24 10:05 Height 5 ft 2.2 in Weight 149 lb 6 oz BMI 27.1 BP 102/70 Blood Pressure Location Lt brachial Position Sitting Pulse 79 Pulse Source Pulse Oximeter Temp 97.1 F Temp Source Skin Pulse Oximetry (%) 98 Oxygen Delivery Method Room Air Intake Visit Reasons: new patient Intake Note: Patient is a new patient here to establish care for Dermatomyotis . Transferring care from [facility] [place] [place]. Medical records have not been requested and have not received. Mirror Inspector Required: No Physical Therapy Assistant Instructor: Not Required per policy Accompanied by: Self / Same As Patient Allergies hydroxychloroquine Adverse Reaction (Mild, Verified 07/18/24 10:15) nausea, vomiting Medication List - Last Reconciled 07/18/24 by NANCY Mayes aspirin (Enteric Coated Aspirin) 81 mg PO DAILY azathioprine 50 mg PO DAILY ferrous sulfate 325 mg PO DAILY folic acid 1 mg PO DAILY prednisone 40 mg (2 x 20 mg) PO DAILY 30 days [ vitamins PO] [vitamin B12 PO] Tobacco use date assessed: 07/18/24 Dental Screening Dental Screen Date: 07/18/24 Did you have a dental visit in the last 12 months?: Yes Did you have a dental problem in the last 6 months where you did not have access to dental care?: No Was dental information given to patient?: Patient has dentist HPI new patient HPI Details Patient is a 28 year female with significant past medical history dermatomycositis Patient is presenting today to establish care Previous PCP:does not remember Last visit:couple years ago Last PE: couple years ago Specialist: Rheumatology [facility]: [facility]: does not know the name Past medical history: Dermatomyositis Family HX: mother: hld, htn Problem: reports that her ears are itchy all the times, they bleed at time Reports small lump below left ear for 5 days Reports that 2 months ago, she could not hear anything out of he left hear. But she could hear now She denies seasonal allergies, reports that her left ear leaks all the time, looks like yellowish secretion reports using q-tip to clean an inch left ear frequently. On exam: +sinus pressure frontal and maxillary pressure bilateral Reports that she went to Rheumatology recently and was placed on prednisone She is supposed to take the prednisone for 2 weeks and return to try another recommended medication [facility] Medical History delivery delivered Dyspnea Dermatomyositis Surgical History History of wisdom tooth extraction History of 3 sections Family History Father Rheumatoid arthritis Mother Rheumatoid arthritis Social History Household Members: Family Housing: Apartment Alcohol intake: never Patient Tobacco Use Status: Never used Tobacco e-Cigarette/Vaping Use: Never Used Second Hand Smoke Exposure: No Substance Use Type: Marijuana service: No Current occupational status: employed 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 1. Little interest or pleasure in doing things: not at all 2. Feeling down, depressed, or hopeless: not at all 3. Trouble falling or staying asleep, or sleeping too much: not at all 4. Feeling tired or having little energy: not at all 5. Poor appetite or overeating: not at all 6. Feeling bad about yourself - or that you are a failure or have let yourself or your family down: not at all 7. Trouble concentrating on things, such as reading the newspaper or watching television: not at all 8. Moving or speaking so slowly that other people could have noticed. Or the opposite - being so fidgety or restless that you have been moving around a lot more than usual: not at all 9. Thoughts that you would be better off or of hurting yourself in some way: not at all Total score: 0 Depression Screening Interpretation: Negative Depression Screening Done: Yes 43451 - PHQ-9 Billing: Yes Source: Developed by Drs. Emiliano De, Joann Lopez, Adams Toscano and colleagues, with an educational reg from [employer]. Thrive Questionnaire Date Thrive assessed: 07/18/24 I am a: Patient What is your living situation today?: I have a steady place to live Within the past 12 months, did the food you bought not last and you didn't have the money to get more?: Never true Within the past 12 months, did you worry whether your food would run out before you got money to buy more?: Never true Do you have trouble paying for medicines?: No Do you have trouble getting transportation to medical appointments?: No Do you have trouble paying your heating and electricity bill?: No Do you have trouble taking care of your child, family member or friend?: No Do you have trouble with day-to-day activities such as bathing, preparing meals, shopping, managing finances, etc.?: No Are you currently unemployed and looking for a job?: No Are you interested in more education?: No Please select the resources that you would like help with: None Currently or been in a relationship where the following occur: No concerns reported THRIVE Score: 0 AUDIT C Alcohol Use Questionnaire (AUDIT-C) 1. How often do you have a drink containing alcohol?: Monthly or less 2. How many drinks containing alcohol do you have on a typical day when you are drinking?: 1 or 2 3. How often do you have six or more drinks on one occasion?: Never Total Score: 1 DEREK-7 AMB Questionnaire DEREK-7 Date DEREK - 7 assessed: 07/18/24 Feeling nervous, anxious, or on edge: 0 = Not at all Not being able to stop or control worryin = Not at all Worrying too much about different things: 0 = Not at all Trouble relaxin = Not at all Being so restless that it is hard to sit still: 0 = Not at all Becoming easily annoyed or irritable: 0 = Not at all Feeling afraid as if something awful might happen: 0 = Not at all Total DEREK-7 score (0-4 normal; 5-9 mild; 10-14 moderate; 15-21 severe): 0 Source: Developed by Drs. Emiliano De, Joann Lopez, Adams Toscano and colleagues, with an educational reg from [employer]. DEREK-7 Assessment Billing DEREK-7 Assessment Tool: DEREK-7 Assessment 19930 Review of Systems Const Details: Denies chills, Denies fatigue, Denies fever(s), Denies headache(s) and Denies weakness HEENT Denies change in vision, Denies dizziness, Denies headache(s), prior hearing loss (about 2 months ago in left ear, but return, reported that she was having drainage in her ear at that time), + nasal congestion, Denies sinus pain, + sinus pressure and Denies sore throat Other: Reports left ear drainage (yellowish), bilateral ear itchiness, no left ear small lump Card Denies chest pain, Denies lightheadedness, Denies dyspnea and Denies other (palpitations) Resp Denies cough, Denies dyspnea and Denies wheezing GI Denies abdominal pain, Denies melena, Denies hematochezia, Denies change in bowel habits, Denies dyspepsia and Denies nausea Denies hematuria and Denies dysuria Musc Denies abnormal gait, Denies myalgias, Denies arthralgias, Denies numbness and Denies tingling Skin/Breast Chronic skin lesion hx of dermatomyositis, Denies unusual bruising and Denies wounds Neuro Denies abnormal gait, Denies dizziness, Denies headache(s), Denies memory loss, Denies numbness, Denies Sensory deficit (Neuro), Denies tingling and Denies weakness Psych Denies anxiety, Denies depression and Denies memory loss Endo Denies cold intolerance, Denies fatigue, Denies heat intolerance, Denies polydipsia and Denies polyuria Kevin/Lymph Denies easy bleeding and Denies easy bruising Aller/Immun Denies wheezing Physical exam (Primary Care) Vital Signs: Last Vital Signs Temp 97.1 F 07/18/24 10:05 Pulse 79 07/18/24 10:05 BP 102/70 07/18/24 10:05 Pulse Ox 98 07/18/24 10:05 Oxygen Delivery Method Room Air 07/18/24 10:05 BMI result Body Mass Index 27.1 Tobacco/Smoking Status: Tobacco use Status Tobacco use date assessed 07/18/24 07/18/24 10:14 Patient Tobacco Use Status Never used Tobacco 07/18/24 10:12 e-Cigarette/Vaping Use Never Used 07/18/24 10:14 PHQ-9: PHQ-9 Score PHQ-9: Total score 0 07/18/24 10:27 Depression Screening Interpretation: Negative Thrive Assessment: Date of Thrive Assessment Date Thrive assessed 07/18/24 07/18/24 10:14 Currently or been in a relationship where the following occur: No concerns reported Const Other: General: no acute distress, well developed, alert and awake Nutritional Appearance: well nourished Orientation/consciousness: patient oriented x3 [facility] Head: Yes normocephalic and Yes atraumatic other: Tenderness to frontal sinus and bilateral maxillary sinuses Ears: hearing grossly normal bilaterally and TM's normal bilaterally other: bilateral ears dry crusted areas, bilateral ear canal mica/irritated areas, + tenderness bilateral tragus General nose exam: Normal external nose present and nasal passages erythema/edema with old appearing dried up brown exudate Mouth: Normal oral and palatal mucosa present and moist mucous membranes Eyes Pupils: Equal, round and reactive pupils present and Pupil accommodation reflex normal EOM: EOMs intact bilaterally Neck Neck: Yes normal visual inspection, Yes no lymphadenopathy and Yes trachea midline Thyroid: Thyroid normal Carotids: no bruits Lymphatic: no lymphadenopathy noted Chest Chest palpation & inspection: normal inspection of the chest Resp Effort & Inspection: normal respiratory effort Auscultation: clear to auscultation bilaterally Cardio Rate: regular rate Rhythm: regular rhythm Heart sounds: S1 normal heart sound present, S2 normal heart sound present, no gallops, no murmurs and no rubs GI Palpation (GI): abdomen soft and nontender to palpation Auscultation: normal bowel sounds General: Yes no CVA tenderness Skin General: warm and dry. Normal skin color. Normal skin turgor Lesions: multiple hypopigmented areas through skin (face, extremities), scabbed over areas on left ear. Nails: normal Neuro General: patient oriented x3, gait normal Cranial nerves: Yes Equal, round and reactive pupils present Cognition (Neuro): normal cognition Gait exam (Neuro): Normal gait present Extrem General: Yes normal to inspection, No edema and No calf tenderness Psych Appearance: grossly normal Affect: normal affect Attitude: cooperative Thought process: Normal thought process present Office Procedures Flu Questionnaire Does the patient have a severe egg allergy?: No Does the patient have severe life threatening allergies?: No Does the patient have a fever or illness today?: No Has the patient ever had Guillain-Lomita Syndrome?: No Has the patient ever had any past reaction to a flu shot?: No Immunizations Fluarix Triv [id number] (PF) 45 mcg (15 mcg x 3)/0.5 mL IM syringe Performing Provider: NANCY Mayes Performing Location: [facility] [place] [place] [facility] Administered by: Martha Rodriguez RN on 07/18/24 10:27 Dose Route Admin Location Dispensed Lot Number Expiration Date NDC Street Openings Inspector 0.5 mL IM Right Deltoid 0.5 mL [id number] 12/15/24 [id number] [employer] VIS Given Date VIS Provided VIS Publication Date 07/18/24 Single Vaccine 21 Eligibility Eligibility Date Funding Source Not [facility] Eligible 07/18/24 Private Coding Level of Care Code New Pt Level 3 (77479) Diagnoses Otitis externa of both ears, unspecified chronicity, unspecified type H60.93 Otitis externa type: unspecified type Chronicity: unspecified Laterality: bilateral Rhinosinusitis J32.9 Dermatomyositis M33.13 Additional Codes DEREK-7 Assessment Billing - DERKE-7 Assessment Tool: DEREK-7 Assessment 67894 ([id number]) PHQ-9 - 10332 - PHQ-9 Billing: Yes ([id number]) Time Spent (min) 29 Assessment & Plan Assessment & Plan (1) Otitis externa: Code(s): H60.90 - Unspecified otitis externa, unspecified ear Category: Medical Qualifiers: Otitis externa type: unspecified type Chronicity: unspecified Laterality: bilateral Qualified Code(s): H60.93 - Unspecified otitis externa, bilateral Plan: Ordered ofloxacin ear drops b.i.d. times 14 day (2) Rhinosinusitis: Code(s): J32.9 - Chronic sinusitis, unspecified Category: Medical Plan: Augmentin b.i.d. times 7 days (3) Dermatomyositis: Code(s): M33.13 - Other dermatomyositis without myopathy Category: Medical Plan: Patient an appointment with Rheumatology recently who placed her on prednisone for 2 weeks With the intention for her return to be tried on a different medication. The patient previously was on hydroxychloroquine but was not able to tolerate the medication Orders: Orders Comprehensive Hixson. Panel Fast Today Z00.00 - Encounter for general adult medical examination without abnormal findings TSH reflex Free T4 Today Z00.00 - Encounter for general adult medical examination without abnormal findings UA CC w/rflx Micro + Cult Today Z00.00 - Encounter for general adult medical examination without abnormal findings Influenza [id number] Immunization Today Z23 - Encounter for immunization Complete Blood Count Auto Diff Today Z00.00 - Encounter for general adult medical examination without abnormal findings Vitamin D 25-OH Total Today Z00.00 - Encounter for general adult medical examination without abnormal findings Lipid Panel Today Z00.00 - Encounter for general adult medical examination without abnormal findings Medications: New ofloxacin 0.3% 10 drps otic (ears) BID 14 days 10 mL 0RF amoxicillin-pot clavulanate 500-125 mg (Augmentin) 1 tab PO Q12H 7 days 14 tabs 0RF J32.9 - Chronic sinusitis, unspecified
[2024-07-18 10:05] VITALS: BP 102/70; PULSE 79; TEMP 36.2; O2SAT 98; BMI 27.1
--- OUTSIDE RECORDS SUMMARY | 2024-07-18 10:42 | XMS_ITS | Clinical Summary ---
Author Organization [facility] ity Address [address] [place] [address] Care Team Providers Care Ibm Mainframe Systems Programmer Name Role Phone Glenda Nowak MD Primary Care Provider [phone] Surgical History Surgery Date Site/Laterality Comments SECTION 2015 PROCEDURE: [place] DELIVERY ONLY; COMMENT: P [facility]CS WISDOM TOOTH EXTRACTION PROCEDURE: HISTORICAL WISDOM TEETH EXTRACTION Medical History Medical History Date Comments Anemia 2015 DX:Anemia; COMME NT: during iron BID Chlamydia contact, treated 05/2018 DX:Ch lamydia contact, treated Chlamydia 2013 DX:Chlamydia wound infection 09/22/2019 DX:Cesa rean wound infection Dermatomyositis ([facility]) 04/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
--- OUTSIDE RECORDS SUMMARY | 2024-07-18 10:42 | XMS_ITS | Clinical Summary ---
Author Organization [employer] Address [address] [place] [address] Care Team Providers Care Auto Appraiser Name Role Phone Unavailable Primary Care Provider [...] patient's age to complete this topic [place] [address] [place] [address] ACO
== END 2024-07-18 10:40 | disposition home or self-care (01) ==
DX: H60.93 Unspecified otitis externa, bilateral (principal); J32.9 Chronic sinusitis, unspecified; M33.13 Other dermatomyositis without myopathy; Z23 Encounter for immunization

== ENCOUNTER → 2024-07-18 10:01 | Outpatient (BNVA) | payer OTHER, SELFPAY | DX: Z23 Encounter for immunization (principal); H60.93 Unspecified otitis externa, bilateral; J32.9 Chronic sinusitis, unspecified; M33.13 Other dermatomyositis without myopathy | CPT/HCPCS: 90471; 90656; 96127; 99202 ==

== ENCOUNTER 2024-09-18 10:06 | Outpatient (REF) | payer OTHER, SELFPAY ==
--- OUTSIDE RECORDS SUMMARY | 2024-09-18 12:27 | XMS_ITS | Clinical Summary ---
Author Organization [employer] Address [address] [facility] [place] [address] Care Team Providers Care Tire Regrooving Machine Operator Name Role Phone Unavailable Primary Care Provider [...] 2024 , 03/18/2020, 02/29/2016, Additional history exists Cervical Cancer Screening 2024 HPV/Cotest 2024 DTaP/Tdap/Td Vaccines (9 - Td or Tdap) [...] patient's age to complete this topic Insurance [facility]
--- OUTSIDE RECORDS SUMMARY | 2024-09-18 12:27 | XMS_ITS | Clinical Summary ---
Author Organization [facility] it Address [address] [place] [address] Care Team Providers Care Ethylbenzene Cracking Supervisor Name Role Phone Glenda Nowak MD Primary Care Provider [phone] Allergies No known active allergies Medications diaphragms, [...] Surgery Date Site/Laterality Comments SECTION 2016 PROCEDURE: [place] DELIVERY ONLY; COMMENT: P LTCS WISDOM TOOTH [...] EDT Office Visit Obstetrics and Gynecology - [place] [address] [place] [address] Samson Keita CNM [address] [place] [address] Health Maintenance Due Date Last Done Comments [...] Result * Hepatitis C Screening (01/30/2019) Pathologist [facility] Hepatitis C Screening ABSTRACTED us Historical Provider HEALTH MAINTENANCE Final Result * Pap smear (07/09/2018) 07/09/2018 Narrative HISTORICAL TESTING LAB RESULTING AGENCY - 07/12/2018 9:54 AM EST [id number] RESULTS OF GEN-PROBE APTIMA COMBO 2 ASSAY [...] Most Recently Relevant to Health Maintenance Insurance [facility] Care Teams Ethylbenzene Cracking Supervisor Relationship Specialty Start Date End Date Glenda Nowak MD [address] [place] [address] , [address] [facility] D/B/A: [facility] [place], [place] PCP - General Internal Medicine 03/19/19
[2024-09-18 17:41] LABS: MANUAL DIFF FLAG NO
[2024-09-18 18:03] LABS: Alanine Aminotransferase 17 U/L (0-31); Aspartate Amino Transferase 24 U/L (5-31); C Reactive Protein 0.19 mg/dL (< or = 0.50); Estimated Glomerular Filt Rate > 60
[2024-09-18 18:19] LABS: Basophils Percent Auto 0.4 % (0-2); Eosinophils Absolute Auto 0.2 X10*3/uL (0.0-0.4); Eosinophils Percent Auto 3.9 % (0-4); Hematocrit 37.6 % (37.0-47.0); Hemoglobin 12.4 g/dl (12.0-16.0); Imm Gran Abs Auto 0.01 X10*3/uL (0.00-0.03); Imm Gran Pct Auto 0.2 % (0.0-0.4); Lymphocytes Absolute Auto 0.8 X10*3/uL (1.2-4.9); Lymphocytes Percent Auto 16.3 % (20-40); Mean Corpuscular Hemoglobin 29.3 pg (27.0-33.0); Mean Corpuscular Volume 88.9 fL (80.0-98.0); Mean Platelet Volume 11.1 fL (9.4-12.3); Monocytes Absolute Auto 0.3 X10*3/uL (0.1-1.2); Monocytes Percent Auto 5.1 % (2-11); Neutrophils Absolute Auto 3.6 x10*3/uL (2.0-8.3); Neutrophils Percent Auto 74.1 % (45-73); Platelet Count 217 X10*3/uL (160-400); Red Blood Count 4.23 X10*6/uL (4.20-5.50); Red Cell Distribution Width 13.5 % (11.0-16.0); White Blood Count 4.9 X10*3/uL (4.8-10.8)
[2024-09-18 18:38] LABS: Erythrocyte Sedimentation Rate 15 MM/HR (0-20)
[2024-09-23 08:18] LABS: Aldolase 5.4 U/L (<=8.1)
== END 2024-09-18 10:07 | disposition home or self-care (01) ==
LOC: HO.HKASLDS 10:06
PROVIDERS: Visit Provider Internal Medicine Rheumatology
DX: M33.13 Other dermatomyositis without myopathy (principal); Z79.60 Long term (current) use of unspecified immunomodulators and immunosuppressants; Z79.899 Other long term (current) drug therapy
CPT/HCPCS: 36415; 82085; 82550; 82565; 84450; 84460; 85025; 85652; 86140; 99212

== ENCOUNTER 2024-09-18 10:06 | Outpatient (AMB) | payer OTHER, SELFPAY ==
--- NOTE | 2024-09-18 10:08 | MHC.OFFVIS ---
Vital Signs 09/18/24 10:09 Height 5 ft 2.2 in Weight 155 lb 6.814 oz BMI 28.2 BP 130/80 Blood Pressure Location Rt brachial Position Sitting Pulse 88 Pulse Source Pulse Oximeter Pulse Oximetry (%) 98 Oxygen Delivery Method Room Air Intake Visit Reasons: 3 mnts Intake Note: Patient presents today for follow up on dermatomyositis. Accompanied by: Self / Same As Patient Allergies hydroxychloroquine Adverse Reaction (Mild, Verified 09/18/24 10:09) nausea, vomiting HPI HPI 3 mnts: Details: She started prednisone but when she received mycophenolate mofetil she could not tolerate the taste of the big pills and was throwing them up. Due to this, she did not continue prednisone. Rash has spread to under left forearm with pruritus. She continues to have pruritus of her years. She has new rash developed on her abdomen. Blisters on her finger are occurring that are painful. She continues to have swelling around her eyes. No progression of weakness. 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 Good respiratory effort Skin: Hyperpigmentation with scales on pinna and external ear canal, hyperpigmented lesions with slight erythema on extremities, hands and trunk. Digital ulceration have resolved on right hand. She has a scab on her scalp. She has soft tissue swelling around right eye. MSK: Tender to palpate PIPs bilateral. Weak sales exec. Normal upper extremity range of motion. Power 4/5 shoulder abductors and abductors. Rest of upper extremity is 5/5. Power 3/5 lower extremities. Left leg is swollen more than right leg. Assessment & Plan Assessment & Plan (1) Dermatomyositis: Comment: Uncontrolled cutaneous disease with subcutaneous edema (rare) and further weakness on exam now involving both upper extremity and lower extremities. She could not tolerate the taste of mycophenolate mofetil. We discussed next steps in treatment. In the past she reports that she was able to tolerate hydroxychloroquine. If she has difficulties with taking hydroxychloroquine, I will try Myfortic next. Intolerance to p.o. medications is likely contributing to noncompliance in the past leading to chronic uncontrolled disease and now progression. I will need to consider starting rituximab if she progresses. Rheumatology history: She initially presented with cutaneous disease without myopathy early 2019 when she was 6 months . She then developed muscle weakness after . CK ordered by Dermatology 01/05/2020 after was noted to be mildly elevated at 304. She had left quadricep muscle biopsy, which was negative. 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 HCQ 03/2020-05/2021, noncompliant with MMF. MTX 04/2020-04/2022 discontinued due to , which she miscarried. Relapse disease and again 09/2022. Restarted hydroxychloroquine and azathioprine 10/2022 but she was lost to follow-up. Code(s): M33.13 - Other dermatomyositis without myopathy Category: Medical Plan: Prednisone course prescribed Start hydroxychloroquine 300 mg daily Nurse call in 2 weeks to find out if patient is tolerating hydroxychloroquine Labs for disease and drug monitoring ordered Return to clinic in 2 months Orders: Orders Alanine Aminotransferase Today Z79.60 - halfway (current) use of unspecified immunomodulators and immunosuppressants Aspartate Amino Transferase Today Z79.60 - halfway (current) use of unspecified immunomodulators and immunosuppressants Creatinine Today Z79.60 - intermediate manager (current) use of unspecified immunomodulators and immunosuppressants Aldolase Today M33.13 - Other dermatomyositis without myopathy Creatine Kinase Total Today M33.13 - Other dermatomyositis without myopathy Complete Blood Count Auto Diff Today Z79.60 - intermediate manager (current) use of unspecified immunomodulators and immunosuppressants Erythrocyte Sedimentation Rate Today Z79.899 - Other correction (current) drug therapy C Reactive Protein Today Z79.899 - Other correction (current) drug therapy Medications: New prednisone Take 4 pills daily for 2 weeks, 3 pills daily for 2 weeks, 2 pills daily for 2 weeks, 1 pill daily for 2 weeks, half a pill daily for 2 weeks, then stop. Take prednisone with food. Avoid NSAIDs. 10 mg PO DIRECTED 147 tabs 0RF Changed From hydroxychloroquine Follow up with Dr. Timmons 08/07/2024 300 mg (1.5 x 200 mg) PO DAILY 90 days 135 tabs 1RF To hydroxychloroquine 300 mg (1.5 x 200 mg) PO DAILY 135 tabs 1RF 90 days Discontinued mycophenolate mofetil Follow-up with Dr. Timmons 08/07/2024. Labs due in 4 weeks for drug monitoring. Discontinued Reason: Doctor's Order 500 mg PO BID 60 tabs 0RF Coding Level of Care Code Est Pt Level 4 (75657) Complex EM visit Add On G2211 Diagnoses Dermatomyositis M33.13
[2024-09-18 10:09] VITALS: BP 130/80; PULSE 88; O2SAT 98; BMI 28.2
--- OUTSIDE RECORDS SUMMARY | 2024-09-18 10:56 | XMS_ITS | Clinical Summary ---
Author Organization [facility] it Address [address] [place] [address] Care Team Providers Care Shipping And Receiving Weigher Name Role Phone Glenda Nowak MD Primary Care Provider [phone] Allergies No known active allergies Medications diaphragms, contoured (Caya Contoured) 65-[address] 1 Device vaginally as needed (for intercourse). 2 Active nonoxynol-9 28 % film Place 1 Applicatorful vaginally as needed (prn for intercours). 2 Active metroNIDAZOLE (METROGEL) 0.75 % (37.5mg/5 gram) vaginal gel Insert vaginally at bedtime x 5 nights and then once a week for 10 weeks 1 Active methotrexate 2.5 mg tablet TAKE 10 TABLETS BY MOUTH (TAKE W/FOLIC ACID) EVERY WEEK FOR 2 WEEKS THEN OBTAIN LABS 0 Active folic acid (FOLVITE) 1 mg tablet Take 1 mg by mouth daily. 0 Active hydroxychloroq uine (PLAQUENIL) 200 mg tablet Take 2 tablets (400 mg total) by mouth 1 (one) time each day. 0 Active mupirocin (BACTROBAN) 2 % ointment Apply to area on left-sided neck twice daily till healed 0 Active tacrolimus (PROTOPIC) 0.1 % ointment APPLY TOPICALLY TO FACE TWICE A DAY 0 Active copper (ParaGard T 380A) 380 square mm IUD 1 Device by Intrauterine route Once. 0 08/24/19 30 Active PNV no.95/ferrous fum/folic ac ( ORAL) Route: Take 3 Tablets by mouth daily. - Oral Active Active Problems Problem Noted Date Diagnosed Date Dermatomyositis 04/06/2021 Rash of face 07/28/2019 Overview (08/14/2024): 07/28/19- Benadryl, claritin and vistaril taken with no improvement Referral to Dermatology LFT and bile acid REJI 500 mg TID 08/05/2019 labs wnl,- Prednisone taper orderd DERMATOLOGY 08/14: Chronic pruritic dermatitis, new onset midpregnancy: This could represent a contact dermatitis however, I am worried about underlying autoimmune disease such as lupus. She is due to have a section on September 01 which is 2 weeks from today. I have ordered a autoimmune panel and have prescribed Aclovate cream 0.05% twice daily to the face and triamcinolone cream 0.1% twice daily to the skin below the neck. Vistaril 50 mg as prescribed. If autoimmune lab work atypical and if she is not responsive to the treatment, I will perform biopsies at her follow-up appointment next week. She is in agreement with this plan. GERD (gastroesophageal reflux disease) 0 Overview (08/14/2024): Prilosec 20 mg po BID Decrease fatty fried food and elevate HOB 30 degrees Immunizations Name Administration Dates Next Due HPV, Quadrivalent 01/02/2018 Hepatitis A-Hepatitis B Adult (Twinrix) 18yo and older 08/14/2016 Tdap Tetanus diptheria acell ular pertussis (Boostrix; Adacel) 7yo and older 06/19/2019 Surgical History Surgery Date Site/Laterality Comments SECTION 2016 PROCEDURE: [place] DELIVERY ONLY; COMMENT: P LTCS WISDOM TOOTH EXTRACTION PROCEDURE: HISTORICAL WISDOM TEETH EXTRACTION Medical History Medical History Date Comments Anemia 2015 DX:Anemia; COMME NT: during iron BID Chlamydia contact, treated 05/2018 DX:Ch lamydia contact, treated Chlamydia 2013 DX:Chlamydia wound infection 09/22/2019 DX:Cesa rean wound infection Dermatomyositis (CMS/HCC) 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HCC) Family History Medical History Relation Name Comments [...] drink = 0.6 oz pur e alcohol) Comments Unknown Sex and Gender Information Value Date Recorded Sex Assigned at Not on file Legal Sex Female 2:14 AM EST Gender Identity Not on file Sexual Orientation [...] 11/16/2021 10:15 AM EDT Plan of Treatment Upcoming Encounters Date Type Department Care Team (Late st Contact Info) Description 11/04/2024 2:30 PM EDT Office Visit Obstetrics and Gynecology - [place] [address] [place] [address] Samson Keita CNM [address] [place] [address] Health Maintenance Due Date Last Done Comments COVID-19 Vaccine (#1) 08/22/1999 Hepatitis B Vaccines (2 of 3 - Hep B Twinrix 3-dose series) 09/11/2016 08/14/2016 HPV Vaccines (2 - 3-dose series) 01/30/2018 01/02/2018 Cervical Cancer Screening: Pap Smear 07/09/2021 07/09/2018, 07/09/2018, 07/09/2018, Additional history exists Depression Screening 05/21/2022 Social Influencers of Health Screening 05/21/2022 Influenza Vaccine (#1) 2024 DTaP,Tdap,and Td Vaccines (2 - Td or Tdap) 06/19/2029 06/19/2019 Hepatitis A Vaccines Aged Out 08/14/2016 No long er eligible based on patient's age to complete this topic HIV Screening Completed 01/30/2019 Hepatitis C Screening Completed 01/30/2019 HIB Vaccines Aged Out No longer eligi [...] patient's age to complete this topic Meningococcal B Vacine Aged Out No lo nger eligible based on patient's age to complete this topic Pneumococcal Vaccine: Pediatrics (0 to 5 Years) and At-Risk Patients (6 to 64 Years) Aged Out No longer eligible based on patient's age to complete this topic RSV Immunization Patients Under 20 months Aged Out No longer eligible based on patient's age to complete this topic Varicella Vaccines Aged Out No longer eligible based on patient's age to complete this topic Procedures Procedure Name Priority Date/Time Associated Diagnosis Comments HEPATITIS C SCREENING Routine 01/30/2019 HIV SCREENING Routine 01/30/2019 PAP SMEAR Routine 07/09/2018 from Last 3 Months or Most Recently Relevant to Health Maintenance Results * HIV Screening (01/30/2019) HIV Screening ABSTRACTED us Historical Provider HEALTH MAINTENANCE Final Result * Hepatitis C Screening (01/30/2019) Pathologist [facility] Hepatitis C Screening ABSTRACTED us Historical Provider HEALTH MAINTENANCE Final Result * Pap smear (07/09/2018) 07/09/2018 Narrative HISTORICAL TESTING LAB RESULTING AGENCY - 07/12/2018 9:54 AM EST [id number] RESULTS OF GEN-PROBE APTIMA COMBO 2 ASSAY CHLAMYDIA: ?NEGATIVE N. GONORRHOEAE: ? NEGATIVE YENI LINN M.D. , PATHOLOGIST (CASE ELECTRONICALLY SIGNED 07 12 2018) CLINICAL INFORMATION: LMP 07/02/18, Z12.4 N76.0 ACUTE VAGINITIS SOURCE: THINPREP PAP FOR CT/GC GROSS DESCRIPTION: THINPREP VIAL RECEIVED. PHYSICIANS CATHY BAER Cathy Baer CN LAB CYTOLOGY ORDERABLES Final R esult HISTORICAL TESTING LAB RESULTING AGENCY from Last 3 Months or Most Recently Relevant to Health Maintenance Insurance [facility] HE[facility] PLAN Care Teams Shipping And Receiving Weigher Relationship Specialty Start Date End Date Glenda Nowak MD [address] [place] [address] , [address] [facility] D/B/A: [facility] [place], [place] PCP - General Internal Medicine 03/19/19
== END 2024-09-18 10:59 | disposition home or self-care (01) ==
LOC: HO.RHES 10:07
PROVIDERS: Visit Provider Internal Medicine Rheumatology
DX: M33.13 Other dermatomyositis without myopathy (principal)
CPT/HCPCS: 99214; G2211

== ENCOUNTER 2024-11-26 14:29 | Outpatient (AMB) | payer OTHER, SELFPAY ==
--- NOTE | 2024-11-26 14:36 | MHC.OFFVIS ---
Vital Signs 11/26/24 14:39 Height 5 ft 2.2 in Weight 160 lb BMI 29.1 BP 136/76 Blood Pressure Location Lt brachial Position Sitting Pulse 87 Pulse Source Pulse Oximeter Pulse Oximetry (%) 98 Oxygen Delivery Method Room Air Intake Visit Reasons: discuss next stepMD approved Intake Note: Patient presents for follow up and to discuss next steps in treatment for rash and dermatomyositis. Patient will need DR. gant today. Allergies hydroxychloroquine Adverse Reaction (Mild, Verified 11/26/24 14:37) nausea, vomiting HPI HPI discuss next stepMD approved: Details: She developed new skin lesions near her right eyelid, axilla, pubic area in in between buttocks that are painful with pruritus. She tried topical hydrocortisone OTC without benefit. She had been on prednisone 30 mg daily after being on 40 mg daily for 2 weeks. Denies new infections. She has been taking hydroxychloroquine 200 mg daily. 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 Good respiratory effort Skin: Hyperpigmentation with scales on pinna and external ear canal, hyperpigmented lesions on extremities without erythema, hands and trunk. No digital ulcerations. She has a scab on her scalp. She has new ulcerated skin lesions on anterior chest and axillary region MSK: No tender joints. No synovitis. Normal upper extremity range of motion. Power 5/5 upper extremities. Power 3/5 hip flexors bilateral. Rest of lower extremities is 5/5. Assessment & Plan Assessment & Plan (1) Dermatomyositis: Comment: Manifesting with cutaneous disease with subcutaneous edema (rare) and weakness in bilateral upper and lower extremities. She has developed new ulcerated skin lesions while on prednisone 30 mg daily. Initial digital ulcerations, subcutaneous edema and upper extremity weakness has resolved while on prednisone and being consistent with taking hydroxychloroquine 200 mg daily. She was unable to unable to cut 1 tablet in half. In the past her disease was controlled on subcutaneous methotrexate. We discussed adding on immune suppressive therapy with methotrexate. Discussed side effects, benefits and drug monitoring. Labs show mild increase in muscle enzymes. Rheumatology history: She initially presented with cutaneous disease without myopathy early 2019 when she was 6 months . She then developed muscle weakness after . CK ordered by Dermatology 01/05/2020 after was noted to be mildly elevated at 304. She had left quadricep muscle biopsy, which was negative. 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 HCQ 03/2020-05/2021, noncompliant with MMF. MTX 04/2020-04/2022 discontinued due to , which she miscarried. Relapse disease and again 09/2022. Restarted hydroxychloroquine and azathioprine 10/2022 but she was lost to follow-up. HCQ restarted 08/2024 with prednisone due to uncontrolled cutaneous disease with subcutaneous edema and bilateral upper and lower extremity weakness. Code(s): M33.13 - Other dermatomyositis without myopathy Category: Medical Plan: Prednisone increase to 40 mg daily for 2 weeks then decrease to 30 mg daily for 2 weeks then 20 mg daily for 2 weeks then 10 mg daily for 2 weeks and 5 mg daily for 2 weeks and stop She will try taking hydroxychloroquine 400 mg 1 day alternating with 200 mg the next day Labs for disease and drug monitoring ordered. After lab results are back, I will send methotrexate liquid 15 mg daily for 2 weeks increase to 17.5 mg daily for 2 weeks and folic acid 1 mg daily. She will then need labs 4 weeks after starting subcutaneous methotrexate with CBC, creatinine, AST and ALT Return to clinic in 3 months (2) Other terminal superintendent (current) drug therapy: Code(s): Z79.899 - Other terminal superintendent (current) drug therapy Category: Medical Plan: See above Orders: Orders Alanine Aminotransferase Today M33.13 - Other dermatomyositis without myopathy, Z79.60 - detention (current) use of unspecified immunomodulators and immunosuppressants, Z79.899 - Other terminal superintendent (current) drug therapy Aspartate Amino Transferase Today M33.13 - Other dermatomyositis without myopathy, Z79.60 - detention (current) use of unspecified immunomodulators and immunosuppressants, Z79.899 - Other senior care (current) drug therapy Creatinine Today M33.13 - Other dermatomyositis without myopathy, Z79.60 - detention (current) use of unspecified immunomodulators and immunosuppressants, Z79.899 - Other senior care (current) drug therapy Creatine Kinase Total Today M33.13 - Other dermatomyositis without myopathy, Z79.899 - Other terminal superintendent (current) drug therapy Complete Blood Count Auto Diff Today M33.13 - Other dermatomyositis without myopathy, Z79.60 - detention (current) use of unspecified immunomodulators and immunosuppressants, Z79.899 - Other senior care (current) drug therapy Erythrocyte Sedimentation Rate Today M33.13 - Other dermatomyositis without myopathy, Z79.899 - Other senior care (current) drug therapy C Reactive Protein Today M33.13 - Other dermatomyositis without myopathy, Z79.899 - Other terminal superintendent (current) drug therapy Aldolase Today M33.13 - Other dermatomyositis without myopathy, Z79.899 - Other senior care (current) drug therapy PT Evaluation and Treatment Today M33.13 - Other dermatomyositis without myopathy, Z79.899 - Other senior care (current) drug therapy Medications: Refilled prednisone Take 4 pills daily for 2 weeks, 3 pills daily for 2 weeks, 2 pills daily for 2 weeks, 1 pill daily for 2 weeks, half a pill daily for 2 weeks, then stop. Take prednisone with food. Avoid NSAIDs. 10 mg PO DIRECTED 147 tabs 0RF Coding Level of Care Code Est Pt Level 4 (90185) Complex EM visit Add On G2211 Diagnoses Dermatomyositis M33.13 Other senior care (current) drug therapy Z79.899
[2024-11-26 14:39] VITALS: BP 136/76; PULSE 87; O2SAT 98; BMI 29.1
--- OUTSIDE RECORDS SUMMARY | 2024-11-26 16:38 | XMS_ITS | Clinical Summary ---
Author Organization [facility] [address] [facility] Address [address] [place] [address] Phone Care Team Providers Care Multiskill Operator Name Role Phone Glenda Nowak MD Primary Care Provider [phone] Allergies No known active allergies Medications diaphragms, [...] Problems Problem Noted Date Diagnosed Date Dermatomyositis (CMS/HCC V24, CMS/HCC V28) 04/06 Rash of face 07/28/2019 Overview (08/14/2024): 07/28/19- [...] Surgery Date Site/Laterality Comments SECTION 2016 PROCEDURE: [place] DELIVERY ONLY; COMMENT: P LTCS WISDOM TOOTH EXTRACTION PROCEDURE: HISTORICAL WISDOM TEETH EXTRACTION Medical History Medical History Date Comments Anemia 2015 DX:Anemia; COMME NT: during iron BID Chlamydia contact, treated 05/2018 DX:Ch lamydia contact, treated Chlamydia 2013 DX:Chlamydia wound infection 09/22/2019 DX:Cesa rean wound infection Dermatomyositis ([facility] V24 , [facility] V28) 04/06/2021 DX:Dermatomyositis ([facility]) Family History Medical History Relation [...] Influencers of Health Screening 05/21/2022 Influenza Vaccine (Season Ended) 2025 DTaP,Tdap,and Td Vaccines (2 - Td or [...] age to complete this topic Meningococcal B Vaccine Aged Out No l onger eligible based on patient's age to complete [...] * HIV Screening (01/30/2019) HIV Screening ABSTRACTED Historical Provider MD HEALTH MAINTENANCE Final Result * Hepatitis C Screening (01/30/2019) Pathologist [facility] Hepatitis C Screening ABSTRACTED us Historical Provider MD HEALTH MAINTENANCE Final Result * Pap smear (07/09/2018) 07/09/2018 Narrative HISTORICAL TESTING LAB RESULTING AGENCY - 07/12/2018 9:54 AM EST [id number] RESULTS OF GEN-PROBE APTIMA COMBO 2 ASSAY [...] Most Recently Relevant to Health Maintenance Insurance [facility] HE[facility] PLAN Care Teams Multiskill Operator Relationship Specialty Start Date End Date Glenda Nowak MD [address] [place] [address] , [address] [facility] D/B/A: [facility] [place], [place] PCP - General Internal Medicine 03/19/19
== END 2024-11-26 15:22 | disposition home or self-care (01) ==
LOC: HO.RHES 14:29
PROVIDERS: Visit Provider Internal Medicine Rheumatology
DX: M33.13 Other dermatomyositis without myopathy (principal); Z79.899 Other long term (current) drug therapy
CPT/HCPCS: 99214; G2211

== ENCOUNTER → 2024-11-26 14:29 | Outpatient (BNVA) | payer OTHER, SELFPAY | PROVIDERS: Visit Provider Internal Medicine Rheumatology | DX: M33.13 Other dermatomyositis without myopathy (principal) | CPT/HCPCS: 99212 ==

== ENCOUNTER 2024-12-16 08:56 | Outpatient (REF) | payer OTHER, SELFPAY ==
[2024-12-16 14:38] LABS: MANUAL DIFF FLAG NO
[2024-12-16 14:45] LABS: Hematocrit 35.8 % (37.0-47.0); Hemoglobin 11.9 g/dl (12.0-16.0); Imm Gran Abs Auto 0.02 X10*3/uL (0.00-0.03); Imm Gran Pct Auto 0.3 % (0.0-0.4); Lymphocytes Absolute Auto 1.2 X10*3/uL (1.2-4.9); Mean Corpuscular HGB Conc 33.2 g/dl (31.0-35.0); Mean Corpuscular Hemoglobin 29.7 pg (27.0-33.0); Mean Corpuscular Volume 89.3 fL (80.0-98.0); NRBC Abs Auto 0.000 X10*3/uL (0.0-0.012); NRBC Pct Auto 0.0 /100WBC (0.0-0.2); Platelet Count 225 X10*3/uL (160-400); Red Blood Count 4.01 X10*6/uL (4.20-5.50); White Blood Count 7.8 X10*3/uL (4.8-10.8)
[2024-12-16 15:18] LABS: Alanine Aminotransferase 15 U/L (0-31); Aspartate Amino Transferase 20 U/L (5-31); Estimated Glomerular Filt Rate > 60
== END 2024-12-16 08:57 | disposition home or self-care (01) ==
LOC: HO.HKASLDS 08:56
PROVIDERS: Visit Provider Internal Medicine Rheumatology
DX: M33.13 Other dermatomyositis without myopathy (principal); R21 Rash and other nonspecific skin eruption; Z79.60 Long term (current) use of unspecified immunomodulators and immunosuppressants; Z79.899 Other long term (current) drug therapy
CPT/HCPCS: 36415; 82085; 82550; 82565; 84450; 84460; 85025; 85652; 86140; 99212

== ENCOUNTER 2024-12-16 08:56 | Outpatient (AMB) | payer OTHER, SELFPAY ==
--- NOTE | 2024-12-16 08:59 | MHC.OFFVIS ---
Vital Signs 12/16/24 09:01 Height 5 ft 2.2 in Weight 157 lb BMI 28.5 BP 140/100 H Blood Pressure Location Lt brachial Position Sitting Pulse 80 Pulse Source Pulse Oximeter Pulse Oximetry (%) 100 Oxygen Delivery Method Room Air Intake Visit Reasons: 2 Months Intake Note: Patient presents for follow up and to discuss next steps in treatment for rash and dermatomyositis Allergies hydroxychloroquine Adverse Reaction (Mild, Verified 12/16/24 09:00) nausea, vomiting HPI HPI 2 Months: Details: Lesion on her right eyelid has resolved. She no longer has burning pain from lesions in her armpits. She has been on prednisone 30 mg daily for 1 week. No new lesions or muscle weakness. Denies dysphagia or dyspnea. [facility] Medical History delivery delivered Dyspnea Dermatomyositis Surgical History History of wisdom tooth extraction History of 3 sections Family History Father Rheumatoid arthritis Mother Rheumatoid arthritis Social History Household Members: Family Housing: Apartment Alcohol intake: never Patient Tobacco Use Status: Never used Tobacco e-Cigarette/Vaping Use: Never Used Second Hand Smoke Exposure: No Substance Use Type: Marijuana service: No Current occupational status: employed Current occupation: [employer] Cognitive needs: No Hearing needs: No Vision needs: No Physical Exam Vital Signs: Last Vital Signs Pulse 80 12/16/24 09:01 BP 140/100 H 12/16/24 09:01 Pulse Ox 100 12/16/24 09:01 Oxygen Delivery Method Room Air 12/16/24 09:01 BMI result Body Mass Index 28.5 Const Other: General: Comfortable CVS: RRR Respiratory: clear to auscultation bilaterally. Good respiratory effort Skin: Hyperpigmentation with scales on pinna and external ear canal, hyperpigmented lesions on extremities without erythema, hands and trunk. No digital ulcerations. She has small open ulcerated lesionS right axilla. MSK: No tender joints. No synovitis. Normal upper extremity range of motion. Power 5/5 upper extremities. Power 5/5 lower extremities Assessment & Plan Assessment & Plan (1) Dermatomyositis: Comment: Manifesting with cutaneous disease with subcutaneous edema (rare) and weakness in bilateral upper and lower extremities. She has developed new ulcerated skin lesions while on prednisone 30 mg daily. With increasing prednisone to 40 mg daily and longer taper there is improvement with resolution of most of the ulcerated skin lesions. She takes hydroxychloroquine 200 mg daily. She forgot to do labs last visit. She is experiencing elevated blood pressure since being on prednisone. 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 We discussed risks and benefits of prednisone. She is on a tapering course of prednisone if her blood pressure increases above 140 systolic, she will call office for instructions on alternative prednisone taper. Rheumatology history: She initially presented with cutaneous disease without myopathy early 2019 when she was 6 months . She then developed muscle weakness after . CK ordered by Dermatology 01/05/2020 after was noted to be mildly elevated at 304. She had left quadricep muscle biopsy, which was negative. 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 HCQ 03/2020-05/2021, noncompliant with MMF. MTX 04/2020-04/2022 discontinued due to , which she miscarried. Relapse disease and again 09/2022. Restarted hydroxychloroquine and azathioprine 10/2022 but she was lost to follow-up. HCQ restarted 08/2024 with prednisone due to uncontrolled cutaneous disease with subcutaneous edema and bilateral upper and lower extremity weakness. Code(s): M33.13 - Other dermatomyositis without myopathy Category: Medical Plan: Prednisone 30 mg daily for 1 more week then 20 mg daily for 2 weeks then 10 mg daily for 2 weeks and 5 mg daily for 2 weeks and stop She will try taking hydroxychloroquine 400 mg 1 day alternating with 200 mg the next day Labs for disease and drug monitoring ordered. After lab results are back, I will send methotrexate liquid 15 mg daily for 2 weeks increase to 17.5 mg daily for 2 weeks and folic acid 1 mg daily. She will then need labs 4 weeks after starting subcutaneous methotrexate with CBC, creatinine, AST and ALT Return to clinic in 2 months (2) Other alf (current) drug therapy: Code(s): Z79.899 - Other exterminator termite (current) drug therapy Category: Medical Plan: See above Medications: Changed From hydroxychloroquine 300 mg (1.5 x 200 mg) PO DAILY 90 days 135 tabs 1RF To hydroxychloroquine Alternate with one tablet on day 1 then two tablets the next day 200 mg PO DAILY 126 tabs 1RF 90 days Coding Level of Care Code Est Pt Level 4 (47498) Complex EM visit Add On G2211 Diagnoses Dermatomyositis M33.13 Other exterminator termite (current) drug therapy Z79.899
[2024-12-16 09:01] VITALS: BP 140/100; PULSE 80; O2SAT 100; BMI 28.5
--- OUTSIDE RECORDS SUMMARY | 2024-12-16 09:19 | XMS_ITS | Clinical Summary ---
Author Organization [facility] [address] [facility] Address [address] [place] [address] Phone Care Team Providers Care Parole Board Member Name Role Phone Glenda Nowak MD Primary Care Provider [phone] Allergies No known active allergies Medications diaphragms, [...] Surgery Date Site/Laterality Comments SECTION 2016 PROCEDURE: [place] DELIVERY ONLY; COMMENT: P LTCS WISDOM TOOTH EXTRACTION PROCEDURE: HISTORICAL WISDOM TEETH EXTRACTION Medical History Medical History Date Comments Anemia 2015 DX:Anemia; COMME NT: during iron BID Chlamydia contact, treated 05/2018 DX:Ch lamydia contact, treated Chlamydia 2013 DX:Chlamydia wound infection 09/22/2019 DX:Cesa rean wound infection Dermatomyositis ([facility] V24 , [facility] V28) 04/06/2021 DX:Dermatomyositis ([facility]) Family History Medical History Relation [...] Screening (01/30/2019) HIV Screening ABSTRACTED Historical Provider HEALTH MAINTENANCE Final Result * Hepatitis C Screening (01/30/2019) Hepatitis C Screening ABSTRACTED Historical Provider MD HEALTH MAINTENANCE Final Result * Pap smear (07/09/2018) 07/09/2018 Narrative HISTORICAL TESTING LAB RESULTING AGENCY - 07/12/2018 9:54 AM EST [id number] RESULTS OF GEN-PROBE APTIMA COMBO 2 ASSAY CHLAMYDIA: NEGATIVE N. GONORRHOEAE: NEGATIVE YENI LINN M.D. , PATHOLOGIST (CASE ELECTRONICALLY SIGNED 07 12 2018) CLINICAL INFORMATION: LMP 07/02/18, Z12.4 N76.0 ACUTE VAGINITIS SOURCE: THINPREP PAP FOR CT/GC GROSS DESCRIPTION: THINPREP VIAL RECEIVED. PHYSICIANS CATHY BAER Cathy Baer CNM LAB CYTOLOGY ORDERABLES Final R esult HISTORICAL TESTING LAB RESULTING AGENCY from Last 3 Months or Most Recently Relevant to Health Maintenance Insurance [facility] Care Teams Parole Board Member Relationship Specialty Start Date End Date Glenda Nowak MD [address] [facility] , [address] [facility] D/B/A: [facility] [place] PCP - General Internal Medicine 03/19/19
--- OUTSIDE RECORDS SUMMARY | 2024-12-16 09:19 | XMS_ITS | Clinical Summary ---
Author Organization [employer] Address [address] [facility] 7[address] [place] [address] Care Team Providers Care Denture Contour Wire Specialist Name Role Phone Unavailable Primary Care Provider Unavailabl e Immunizations Immunization Administration Dates Next Due Pfizer Covid-19 Vaccine [...] 1994 HIV Screening 1994 SDOH Screening 1994 Disability Screening 1994 Alcohol/Substance Use Screening 2006 Tobacco Screening 2006 Family Planning (PISQ) 2009 Hepatitis C Screening 2012 Pap Smear 08/22/2015 COVID-19 Vaccine ( season) 2024 07/14/2022, 06/15/2021, 07/14/2020, Additional history exists Cervical Cancer Screening 2024 HPV/Cotest 2024 Influenza Vaccine (Season Ended) 2025 04/05/2021, 03/18/2020, 02/29/2016, Additional history exists DTaP/Tdap/Td Vaccines [...] Completed 01/02/2018, 02/16, 04/29/2007, Additional history exists Meningococcal B Vaccine Aged Out No l onger eligible based on patient's age to complete this topic Pneumococcal Vaccine: Pediatrics (0 to 5 Years) and At-Risk Patients (6 to 49) Years Aged Out No longer eligible based on patient's age to complete this topic RSV under 20 months Aged Out No longe r eligible based on patient's age to complete this topic Rotavirus Vaccines Aged Out No longer eligible based on patient's age to complete this topic Insurance [facility]
== END 2024-12-16 09:44 | disposition home or self-care (01) ==
PROVIDERS: Visit Provider Internal Medicine Rheumatology
DX: M33.13 Other dermatomyositis without myopathy (principal); Z79.899 Other long term (current) drug therapy
CPT/HCPCS: 99214; G2211

== ENCOUNTER 2025-03-04 10:16 | Outpatient (REF) | payer OTHER, SELFPAY ==
[2025-03-04 18:28] LABS: MANUAL DIFF FLAG NO
[2025-03-04 18:35] LABS: Hematocrit 33.9 % (37.0-47.0); Hemoglobin 11.2 g/dl (12.0-16.0); Imm Gran Abs Auto 0.00 X10*3/uL (0.00-0.03); Imm Gran Pct Auto 0.0 % (0.0-0.4); Lymphocytes Absolute Auto 0.8 X10*3/uL (1.2-4.9); Mean Corpuscular HGB Conc 33.0 g/dl (31.0-35.0); Mean Corpuscular Hemoglobin 29.7 pg (27.0-33.0); Mean Corpuscular Volume 89.9 fL (80.0-98.0); NRBC Abs Auto 0.000 X10*3/uL (0.0-0.012); NRBC Pct Auto 0.0 /100WBC (0.0-0.2); Platelet Count 194 X10*3/uL (160-400); Red Blood Count 3.77 X10*6/uL (4.20-5.50); White Blood Count 4.6 X10*3/uL (4.8-10.8)
[2025-03-04 18:50] LABS: Alanine Aminotransferase 15 U/L (0-31); Aspartate Amino Transferase 27 U/L (5-31); Estimated Glomerular Filt Rate > 60
== END 2025-03-04 10:17 | disposition home or self-care (01) ==
LOC: HO.HKASLDS 10:16
PROVIDERS: Visit Provider Internal Medicine Rheumatology
DX: M33.13 Other dermatomyositis without myopathy (principal); Z51.81 Encounter for therapeutic drug level monitoring; M54.16 Radiculopathy, lumbar region; Z79.631 Long term (current) use of antimetabolite agent; Z79.899 Other long term (current) drug therapy
CPT/HCPCS: 36415; 82085; 82550; 82565; 84450; 84460; 85025; 85652; 86140; 99212

== ENCOUNTER 2025-03-04 10:16 | Outpatient (AMB) | payer OTHER, SELFPAY ==
[2025-03-04 10:25] VITALS: BP 140/70; PULSE 73; O2SAT 97; BMI 28.5
--- NOTE | 2025-03-04 10:25 | MHC.OFFVIS ---
Vital Signs 03/04/25 10:25 Height 5 ft 2.2 in Weight 157 lb BMI 28.5 BP 140/70 H Blood Pressure Location Rt brachial Position Sitting Pulse 73 Pulse Source Pulse Oximeter Pulse Oximetry (%) 97 Oxygen Delivery Method Room Air Intake Visit Reasons: 3 Months Intake Note: Patient presents today for follow up on dermatomyositis. Accompanied by: Self / Same As Patient Allergies hydroxychloroquine Adverse Reaction (Mild, Verified 03/04/25 10:28) nausea, vomiting HPI HPI 3 Months: Details: SHe has sharp pain when she goes down stairs. She has pain when she steps on the ground. 3 days of new ulcers on hand, ears, abdomen. Its painful. 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 Good respiratory effort Skin: Hyperpigmentation with scales on pinna and external ear canal, hyperpigmented lesions on extremities without erythema, hands and trunk. No digital ulcerations. She has ulcerations on left 3rd finger, left pinna, anterior chest. MSK: No tender joints. No synovitis. Normal upper extremity range of motion. Power 5/5 upper extremities and lower extremities Assessment & Plan Assessment & Plan (1) Dermatomyositis: Comment: Manifesting with cutaneous disease with subcutaneous edema (rare) and weakness in bilateral upper and lower extremities. She has recurrence of skin ulcerations off of prednisone. She has been more compliant with methotrexate subcutaneous injection but has been experiencing bleeding for 1-2 minutes after injecting in abdomen site. She did not resume hydroxychloroquine. Rheumatology history: She initially presented with cutaneous disease without myopathy early 2019 when she was 6 months . She then developed muscle weakness after . CK ordered by Dermatology 01/05/2020 after was noted to be mildly elevated at 304. She had left quadricep muscle biopsy, which was negative. 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 HCQ 03/2020-05/2021, noncompliant with MMF. MTX 04/2020-04/2022 discontinued due to , which she miscarried. Relapse disease and again 09/2022. Restarted hydroxychloroquine and azathioprine 10/2022 but she was lost to follow-up. HCQ restarted 08/2024 with prednisone due to uncontrolled cutaneous disease with subcutaneous edema and bilateral upper and lower extremity weakness. Code(s): M33.13 - Other dermatomyositis without myopathy Category: Medical Plan: Resume hydroxychloroquine 200 mg 1 day alternating with 400 mg the next day In the past she was on triamcinolone topical prescribed by Dermatology in [place]. She will call office with dose of triamcinolone and I will prescribe it for her to use on her active skin lesions Continue methotrexate 20 mg once weekly subcutaneous inject and folic acid 1 mg daily Labs for disease and drug monitoring ordered Return to clinic in 3 months (2) Other retirement (current) drug therapy: Code(s): Z79.899 - Other retirement (current) drug therapy Category: Medical Plan: See above (3) Right lumbar radiculopathy: Code(s): M54.16 - Radiculopathy, lumbar region Category: Medical Plan: PT ordered Orders: Orders Complete Blood Count Auto Diff Today M33.13 - Other dermatomyositis without myopathy, Z79.899 - Other retirement (current) drug therapy C Reactive Protein Today M33.13 - Other dermatomyositis without myopathy, Z79.899 - Other retirement (current) drug therapy Erythrocyte Sedimentation Rate Today M33.13 - Other dermatomyositis without myopathy, Z79.899 - Other long term care social worker (current) drug therapy Alanine Aminotransferase Today M33.13 - Other dermatomyositis without myopathy, Z79.899 - Other retirement (current) drug therapy Aspartate Amino Transferase Today M33.13 - Other dermatomyositis without myopathy, Z79.899 - Other long term care social worker (current) drug therapy Creatinine Today M33.13 - Other dermatomyositis without myopathy, Z79.899 - Other retirement (current) drug therapy Creatine Kinase Total Today M33.13 - Other dermatomyositis without myopathy Aldolase Today M33.13 - Other dermatomyositis without myopathy Medications: Changed From hydroxychloroquine Alternate with one tablet on day 1 then two tablets the next day 200 mg PO DAILY 90 days 126 tabs 1RF To hydroxychloroquine Alternate with one tablet on day 1 then two tablets the next day 200 mg PO DIRECTED 126 tabs 1RF 90 days Coding Level of Care Code Est Pt Level 4 (08212) Complex EM visit Add On G2211 Diagnoses Dermatomyositis M33.13 Other retirement (current) drug therapy Z79.899 Right lumbar radiculopathy M54.16
--- OUTSIDE RECORDS SUMMARY | 2025-03-04 12:30 | XMS_ITS | Encounter Summary ---
Author Organization [facility] Address [address] [place] [address] Phone Care Team Providers Care Quilt Stuffer Name Role Phone Glenda Marinelli MD Primary Care Provid er Encounter Details Date Type Department Care Team (Late st Contact Info) Description 04/12/[address] Procedure [address] [facility] Imaging, [place] [address] [place] [address] Social History Tobacco Use Types Packs/Day Years Used Date Smoking Tobacco: Never Assessed Comments Unknown Sex and Gender Information Value Date Recorded Sex Assigned at Not on file Legal Sex Female 1:40 PM EDT Gender Identity Not on file Sexual Orientation Not on file documented as of this encounter Plan of Treatment Not on file documented as of this encounter Visit Diagnoses Not on filedocumented in this encounter Care Teams Quilt Stuffer Relationship Specialty Start Date End Date Glenda Marinelli MD [address] [place] [address] PCP - General Internal Medicine 03/17/20 documented as of this encounter Additional Source Comments The information contained in this document represents components of the legal health record. It is not the complete legal health record.[facility]
--- OUTSIDE RECORDS SUMMARY | 2025-03-04 12:30 | XMS_ITS | Clinical Summary ---
Author Organization [facility] [address] [facility] Address [address] [place] [address] Phone Care Team Providers Care Store Sales Leader Name Role Phone Glenda Nowak MD Primary Care Provider [phone] Allergies No known active allergies Medications diaphragms, [...] Surgery Date Site/Laterality Comments SECTION 2016 PROCEDURE: [place] DELIVERY ONLY; COMMENT: P LTCS WISDOM TOOTH EXTRACTION PROCEDURE: HISTORICAL WISDOM TEETH EXTRACTION Medical History Medical History Date Comments Anemia 2015 DX:Anemia; COMME NT: during iron BID Chlamydia contact, treated 05/2018 DX:Ch lamydia contact, treated Chlamydia 2013 DX:Chlamydia wound infection 09/22/2019 DX:Cesa rean wound infection Dermatomyositis ([facility] V24 , [facility] V28) 04/06/2021 DX:Dermatomyositis ([facility]) Family History Medical History Relation Name Comments [...] 07/09/2021 07/09/2018, 07/09/2018, 07/09/2018, Additional history exists Social Influencers of Health Screening 05/21/2022 Depression Screening 06/18/2024 Influenza Vaccine (#1) 2025 DTaP,Tdap,and Td Vaccines (2 - Td [...] 5 Years) and At-Risk Patients (6 to 49 Years) Aged Out No longer eligible based [...] RESULTING AGENCY - 07/12/2018 9:54 AM EST [id number] RESULTS OF GEN-PROBE APTIMA COMBO 2 ASSAY [...] Most Recently Relevant to Health Maintenance Insurance [facility] Care Teams Store Sales Leader Relationship Specialty Start Date End Date Glenda Nowak MD [address] [facility] , [address] [facility] D/B/A: [facility] [place] PCP - General Internal Medicine 03/19/19
--- OUTSIDE RECORDS SUMMARY | 2025-03-04 12:30 | XMS_ITS | Clinical Summary ---
Author Organization [employer] Address [address] [facility] 7[address] [place] [address] Care Team Providers Care Supervisor Acoustical Tile Carpenters Name Role Phone Unavailable Primary Care Provider [...] Hepatitis C Screening 2012 Pap Smear 08/22/2015 Cervical Cancer Screening 2024 HPV/Cotest 2024 COVID-19 Vaccine ( season) 2025 07/14/2022, 06/15/2021, 07/14/2020, Additional history exists Influenza Vaccine (#1) 2025 , 03/18/2020, 02/29/2016, Additional history exists DTaP/Tdap/Td Vaccines (9 - Td or Tdap) 06/19/2029 06/19/2019, 05/18/2016, 04/29/2007, Additional history exists Zoster Vaccines (1 of 2) 2044 RSV Patients and Patients Aged 60 years or older (1 - 1-dose 75+ series) 2069 HIB Vaccines Completed 01/21/1996, 1008/1994, 01/18/1995, Additional history exists IPV Vaccines Completed [...] patient's age to complete this topic Insurance [facility]
--- OUTSIDE RECORDS SUMMARY | 2025-03-04 12:30 | XMS_ITS | Encounter Summary ---
Author Organization [facility] Address [address] [place] [address] Phone Care Team Providers Care Tabular Typist Name Role Phone Glenda Marinelli MD Primary Care Provid er Encounter Details Date Type Department Care Team (Late st Contact Info) Description 04/12/[address] [facility] CT Imaging, [place] [address] [place] [address] Social History Tobacco Use Types Packs/Day Years [...] on filedocumented in this encounter Care Teams Tabular Typist Relationship Specialty Start Date End Date Glenda Marinelli MD [address] [place] [address] PCP - General Internal Medicine 03/17/20 documented as of this encounter Additional Source Comments The information contained in this document represents components of the legal health record. It is not the complete legal health record.[facility]
--- OUTSIDE RECORDS SUMMARY | 2025-03-04 12:30 | XMS_ITS | Clinical Summary ---
Author Organization [facility] Address [address] [facility] [address] [place] [address] Phone Care Team Providers Care Director Of Neurology Name Role Phone Glenda Marinelli MD Primary Care Provid er Medications fluocinolone (SYNALAR) 0.01 % external solution Apply to scalp daily for up to 3 weeks each month. 60 mL 2 0 Active tacrolimus (PROTOPIC) 0.1 % ointment Apply topically 2 (two) times a day. 100 g 11 0 Active folic acid (FOLVITE) 1 MG tablet Take 1 tablet (1 mg total) by mouth daily. 30 tablet 11 0 Active METHOTREXATE 2.5 MG Oral tablet TAKE 10 TABLETS BY MOUTH (TAKE W/FOLIC ACID) EVERY WEEK FOR 2 WEEKS THEN OBTAIN LABS 40 tablet 1 Active triamcinolone acetonide 0.1 % cream APPLY TOPICALLY TO AFFECTED AREAS OF SKIN TWICE DAILY FOR NO MORE THAN 2 WEEKS PER MONTH. AVOID EYES AND AREAS WITH THIN SKIN (E.G. FACE, GENITALS, ARMPITS) 454 g 3 1 Active Social History Tobacco Use Types Packs/Day Years Used Date Smoking Tobacco: Never Assessed Education Answer Date Recorded Are you interested in more education? Not on blas e 10/13/2022 Are you concerned about learning? Not on file 10/13/2022 No 10/13/2022 No 10/13/2022 Digital Access Answer Date Recorded No 11/11/2022 No 11/11/2022 No 11/11/2022 Reliable internet access at home? Not on file 11/11/2022 Device with a working camera? Not on file Comments Unknown Sex and Gender Information Value Date Recorded Sex Assigned at Not on file Legal Sex Female 1:40 PM EDT Gender Identity Not on file Sexual Orientation Not on file Plan of Treatment Health Maintenance Due Date Last Done Comments DEPRESSION SCREENING 2006 SMOKING Hx and SMOKELESS TOBACCO SCREENING 08/22/2007 HIV ONE-TIME SCREENING (18-65 YEARS) 2012 PNEUMOCOCCAL VACCINES (0-49 years) (1 of 2 - PCV) 2013 PAP SMEAR 07/09/2021 07/09/2018 INFLUENZA VACCINE (#1) 2025 , 03/18/2020, 02/29/2016, Additional history exists COVID-19 VACCINE ( season) 2025 06/15/2021, 07/14/2020, 06/23/2020 Adult Td,Tdap Booster 06/19/2029 06/19/2019 , 05/18/2016, 04/29/2007, Additional history exists HIB VACCINES Completed 01/21/1996, 08/1994, 01/18/1995, Additional history exists MENINGOCOCCAL VACCINES (ACWY) Aged Out 03/05/2008 No longer eligible based on patient's age to complete this topic HEPATITIS A VACCINES Aged Out 08/14/2016 No long er eligible based on patient's age to complete this topic HEPATITIS C SCREENING Completed 04/08/2020 MENINGOCOCCAL VACCINES (B) Aged Out N o longer eligible based on patient's age to complete this topic Medical Devices Not on file Procedures Procedure Name Priority Date/Time Associated Diagnosis Comments HEPATITIS C ANTIBODY, QUALITATIVE Routine 04/08/2020 4:23 PM EDT Encounter for long-term (current) use of other medications from Last 3 Months or Most Recently Relevant to Health Maintenance Results * Hepatitis C antibody, qualitative (04/08/2020 4:23 PM EDT) HCV Nonreactive Nonreactive [facility] Blood 04/08/2020 4:23 PM EDT 04/08/2020 7:14 PM EDT Michael Willingham MD, PhD LAB BLOOD ORDERABLES Final Re sult [facility] [address] [place] [address] from Last 3 Months or Most Recently Relevant to Health Maintenance Insurance [employer] Care Teams Director Of Neurology Relationship Specialty Start Date End Date Glenda Marinelli MD [address] [place] [address] PCP - General Internal Medicine 03/17/20 Additional Source Comments The information contained in this document represents components of the legal health record. It is not the complete legal health record.[facility]
== END 2025-03-04 10:54 | disposition home or self-care (01) ==
LOC: HO.RHES 10:17
PROVIDERS: Visit Provider Internal Medicine Rheumatology
DX: M33.13 Other dermatomyositis without myopathy (principal); Z79.899 Other long term (current) drug therapy; M54.16 Radiculopathy, lumbar region
CPT/HCPCS: 99214